=== PATIENT | female | born 1985 | race Caucasian/White ===

== ENCOUNTER 2023-03-09 09:41 | Outpatient (OUT) | payer OTHER, SELFPAY ==
[2023-03-09 11:14] LABS: Basophils Percent Auto 0.4 % (0.2-2.0); Eosinophils Absolute Auto 0.1 10^3/uL (0.0-0.7); Eosinophils Percent Auto 1.3 % (0.9-7.0); Hematocrit 36.9 % (36.0-48.0); Immature Granulocytes Abs Auto 0.01 10^3/uL (0.00-0.03); Immature Granulocytes Pct Auto 0.2 % (0.0-0.5); Lymphocytes Percent Auto 35.8 % (20.5-60.0); Mean Corpuscular HGB Conc 32.5 g/dL (29.9-35.2); Mean Corpuscular Hemoglobin 26.9 pg (26.7-34.0); Mean Corpuscular Volume 82.7 fL (81.0-99.0); Mean Platelet Volume 9.5 fL (9.5-13.5); Monocytes Absolute Auto 0.7 10^3/uL (0.3-0.8); Monocytes Percent Auto 11.8 % (1.7-12.0); Neutrophils Absolute Auto 2.8 10^3/uL (1.4-6.5); Neutrophils Percent Auto 50.5 % (43.0-75.0); Platelet Count 364 10^3/uL (150-450); Red Blood Count 4.46 10^6/uL (4.20-5.40); Red Cell Distribution Width 13.8 % (11.0-15.0); White Blood Count 5.5 10^3/uL (4.0-11.0)
[2023-03-09 11:25] LABS: INR 1.08; Partial Thromboplastin Time 28.9 sec (22.3-36.2); Prothrombin Time 11.4 sec (9.0-11.6)
[2023-03-09 11:57] LABS: Alanine Aminotransferase 39 U/L (14-59); Albumin Level 3.7 g/dL (3.4-5.0); Alkaline Phosphatase 42 U/L (46-116); Anion Gap 12.4; Aspartate Amino Transferase 22 U/L (15-37); BUN Creatinine Ratio 26.2; Bilirubin Direct 0.1 mg/dL (0.0-0.2); Bilirubin Total 0.4 mg/dL (0.2-1.0); Chloride 103 mmol/L (98-107); Estimated GFR (African America >60 (>=60); Estimated GFR (Non-African Ame >60 (>=60); Globulin 3.6 g/dL; Glucose 81 mg/dL (74-106); Potassium 3.4 mmol/L (3.5-5.1); Sodium 139 mmol/L (136-145); Total Protein 7.3 g/dL (6.4-8.2)
== END 2023-03-09 09:42 | disposition home or self-care (01) ==
PROVIDERS: PCP Family Medicine; Visit Provider Obstetrics & Gynecology
DX: Z01.812 Encounter for preprocedural laboratory examination (principal); N92.6 Irregular menstruation, unspecified; R10.2 Pelvic and perineal pain; N94.6 Dysmenorrhea, unspecified; N94.10 Unspecified dyspareunia
CPT/HCPCS: 80048; 80076; 85025; 85610; 85730; 86850; 86900; 86901

== ENCOUNTER 2023-03-18 10:57 | Day surgery (SDC) | payer OTHER, SELFPAY ==
[2023-03-09 10:26] VITALS: BP 105/70; PULSE 77; RESP 20; TEMP 36.3; O2SAT 96; BMI 42.2
[2023-03-18] VITALS (17 sets, daily range): BP systolic 99–146; BP diastolic 52–78; PULSE 68–96; RESP 15–20; TEMP 36.6–36.7; O2SAT 91–98; BMI 40.9
[2023-03-18 11:13] LABS: Basophils Percent Auto 0.4 % (0.2-2.0); Eosinophils Absolute Auto 0.1 10^3/uL (0.0-0.7); Eosinophils Percent Auto 1.2 % (0.9-7.0); Hematocrit 38.8 % (36.0-48.0); Hemoglobin 12.8 g/dL (12.0-16.0); Immature Granulocytes Abs Auto 0.01 10^3/uL (0.00-0.03); Immature Granulocytes Pct Auto 0.1 % (0.0-0.5); Lymphocytes Absolute Auto 2.1 10^3/uL (1.2-3.8); Lymphocytes Percent Auto 30.4 % (20.5-60.0); Mean Corpuscular Hemoglobin 27.1 pg (26.7-34.0); Mean Corpuscular Volume 82.2 fL (81.0-99.0); Mean Platelet Volume 9.7 fL (9.5-13.5); Monocytes Absolute Auto 0.7 10^3/uL (0.3-0.8); Neutrophils Absolute Auto 3.9 10^3/uL (1.4-6.5); Neutrophils Percent Auto 57.9 % (43.0-75.0); Platelet Count 335 10^3/uL (150-450); Red Blood Count 4.72 10^6/uL (4.20-5.40); Red Cell Distribution Width 13.6 % (11.0-15.0); White Blood Count 6.8 10^3/uL (4.0-11.0)
[2023-03-18 11:34] LABS: HCG Quantitative <1 mIU/mL
[2023-03-18] MEDS: LACTATED RINGER'S SOLUTION 1,000 ML 50 ML IV ×2 (11:45→14:34)
[2023-03-18 11:50] LABS: Glucometer 96 mg/dL (74-106)
[2023-03-18] MEDS: SCOPOLAMINE 1 EACH PATCH.TD.3 1 PATCH TD (12:38)
[2023-03-18] MEDS: CEFAZOLIN SODIUM/DEXTROSE,ISO 2 GM/50 ML PIGGYBACK IV ×2 (13:07→22:14)
--- NOTE | 2023-03-18 15:17 | P.ON_ITS ---
Brief Operative Note Date of procedure: 03/18/23 Pre-op diagnosis: MENORRHAGIA, PELVIC PAIN, DYSMENORRHEA, DYSPAREUNIA Post-op diagnosis: same as pre-op Procedure: NAME OF PROCEDURE: ? Robotic assisted laparoscopic hysterectomy with cystoscopy, bilateral salpingectomy PROCEDURE:? The patient was taken back to the operating room, where she was prepped and draped in the normal sterile fashion after being placed in the dorsal lithotomy position.? Patient?s anesthesia was found to be adequate.? Surgical timeout was performed using two patient identifiers.? SCDs were on and in place.? Two grams of Ancef were given prior to the surgery.? Sterile Escamilla catheter was inserted.? Standard size VCare was secured to the uterine cervix and the surgeon changed gloves.? Attention then was turned to the patient's abdomen, where a supraumbilical incision was then made.? Two S retractors were used to identify the patient?s fascia.? The fascia was then tented up using Bozena clamps and the patient?s fascia was incised sharply.? Patient?s abdomen was identified and entered bluntly.? The patient had the trocar placed and a pneumoperitoneum was obtained.? Approximately 4 liters of CO2 gas was used.? The camera was then placed through the trocar.? At this time, two robot trocars were placed in the patient?s left and right side, two hand widths from the midline, and this was placed under direct visualization.? the vessel sealer was then carried down to the uterine ovarian ligament.? The vessel sealer was carried down serially to the broad ligament, to the area of the bladder flap, which was then created anteriorly, and the uterine arteries were skeletonized and sealed using the vessel sealer.? The colpotomy was made using the monopolar cautery on cut, and this was carried circumferentially, posteriorly to anteriorly, until the uterus was amputated.? The specimen was then removed intact through the vagina, without difficulty.? The vagina was then closed using two running V-Loc in a non-lock fashion.? The robot was undocked.? The abdomen was desufflated.? The skin defects were closed using 4-0 Vicryl.? Please note, the fascia was closed using 0 Vicryl.? Sponge, lap and needle counts were correct x2.? Patient was taken to recovery room in stable condition.? The patient was awakened by Anesthesia first.? Patient tolerated procedure well.?? Anesthesia: JOVAN Surgeon: [employer] Assistant: Lexus Dorado Estimated blood loss (mL): 200 Pathology: other (UTERUS) Condition: stable Disposition: PACU
[2023-03-18] MEDS: HYDROMORPHONE HCL 0.5 MG/0.5 ML SYRINGE IV ×2 (15:40→15:55)
[2023-03-18] MEDS: LACTATED RINGER'S SOLUTION 1,000 ML 125 ML IV (18:08)
--- NOTE | 2023-03-18 20:55 | PC.NURSE ---
RN performs physical assessment which is WNL. Small gauze with occlusive dressing sites x4 noted on abdomen. Small amount of serosanguinous drainage noted on one gauze; other sites on abdomen remain clean, dry, and intact. Pt denies pain or any needs at this time.
[2023-03-18] MEDS: DOCUSATE SODIUM 100 MG CAPSULE PO (22:12)
[2023-03-19] MEDS: CEFAZOLIN SODIUM/DEXTROSE,ISO 2 GM/50 ML PIGGYBACK IV (02:30)
[2023-03-19 05:57] LABS: Basophils Percent Auto 0.2 % (0.2-2.0); Eosinophils Percent Auto 0.1 % (0.9-7.0); Hematocrit 33.8 % (36.0-48.0); Immature Granulocytes Abs Auto 0.03 10^3/uL (0.00-0.03); Immature Granulocytes Pct Auto 0.3 % (0.0-0.5); Lymphocytes Absolute Auto 2.5 10^3/uL (1.2-3.8); Lymphocytes Percent Auto 23.5 % (20.5-60.0); Mean Corpuscular HGB Conc 32.5 g/dL (29.9-35.2); Mean Corpuscular Hemoglobin 26.9 pg (26.7-34.0); Mean Corpuscular Volume 82.6 fL (81.0-99.0); Mean Platelet Volume 9.9 fL (9.5-13.5); Monocytes Absolute Auto 1.1 10^3/uL (0.3-0.8); Monocytes Percent Auto 10.2 % (1.7-12.0); Neutrophils Absolute Auto 6.9 10^3/uL (1.4-6.5); Neutrophils Percent Auto 65.7 % (43.0-75.0); Platelet Count 292 10^3/uL (150-450); Red Blood Count 4.09 10^6/uL (4.20-5.40); Red Cell Distribution Width 13.6 % (11.0-15.0); White Blood Count 10.6 10^3/uL (4.0-11.0)
[2023-03-19] MEDS: IBUPROFEN 600 MG TABLET 800 MG PO (06:39)
--- NOTE | 2023-03-19 07:13 | W.PC.ACHO ---
Registration Status: REG SDC Primary Language: Turkmen Preferred Language: Active Medications Generic Name Dose Route Start Last Admin Trade Name Freq PRN Reason Stop Dose Admin Al Hydroxide/Mg Hydroxide 2,400 mg 03/19/23 09:00 Magnesium Hydroxide 2,400 Mg/10 Ml Oral.Susp PO ONCE DALI Bisacodyl 10 mg 03/18/23 15:12 Bisacodyl 10 Mg Rectal Suppository VA QHS PRN Constipation Docusate Sodium 100 mg 03/18/23 21:00 03/18/23 22:12 Docusate Sodium 100 Mg Capsule PO 100 mg BID PRN Administration Constipation Hydromorphone HCl 0.5 mg 03/18/23 09:06 03/18/23 15:55 Hydromorphone Hcl 0.5 Mg/0.5 Ml Syringe IV 0.5 mg Q5M PRN Administration Pain Hydromorphone HCl 1 mg 03/18/23 09:06 Hydromorphone Hcl 1 Mg/Ml Cartridge INJ ONCE PRN Pain Scale 7-10 Lactated Ringer's 1,000 mls @ 50 mls/hr 03/18/23 07:01 03/18/23 14:34 Lactated Ringers IV 50 mls/hr .Q20H DALI Administration Lactated Ringer's 1,000 mls @ 125 mls/hr 03/18/23 15:15 03/18/23 18:08 Lactated Ringers IV 125 mls/hr .Q8H DALI Administration Ibuprofen 800 mg 03/18/23 15:12 03/19/23 06:39 Ibuprofen 600 Mg Tablet PO 800 mg Q6H PRN Administration Pain Scale 4-6 Ketorolac Tromethamine 30 mg 03/18/23 15:12 Ketorolac Tromethamine 30 Mg/Ml Vial IVP Q6H PRN Pain Morphine Sulfate 2 mg 03/18/23 09:06 Morphine Sulfate 4 Mg/Ml Vial IV ONCE PRN Pain Ondansetron HCl 4 mg 03/18/23 15:12 Ondansetron Pf 4 Mg/2 Ml Vial IV Q6H PRN Nausea Oxycodone/Acetaminophen 1 each 03/18/23 15:12 03/18/23 22:11 Oxycodone Hcl/Acetaminophen 5-325 Mg Tablet PO 1 each Q4H PRN Administration Pain Oxycodone/Acetaminophen 2 each 03/18/23 15:12 03/18/23 16:07 Oxycodone Hcl/Acetaminophen 5-325 Mg Tablet PO 2 each Q4H PRN Administration Pain Scale 7-10 Promethazine HCl 12.5 mg 03/18/23 15:12 Promethazine Hcl 25 Mg/Ml Vial IV Q6H PRN Nausea And Vomiting Simethicone 80 mg 03/18/23 15:12 Simethicone 80 Mg Tab.Chew PO PCHS PRN Abdominal Distention Temazepam 30 mg 03/18/23 15:12 Temazepam 15 Mg Capsule PO BEDTIME PRN Sleep IV Insertion/Site Date of IV Line Insertion [ 03/18/23 Short PIV (<1.75 in) 20g right Hand] Date of IV Line Insertion [ 03/18/23 Short PIV (<1.75 in) 20g right Hand] IV Insertion Time [Short PIV ( 11:36 <1.75 in) 20g right Hand] IV Insertion Time [Short PIV ( 11:36 <1.75 in) 20g right Hand] Neurology Scarlet coma scale total score 15 Respiratory Lung sounds [Bilateral clear Throughout] Lung sounds [Bilateral clear Throughout] Lung sounds [Bilateral clear Throughout] Lung sounds [Bilateral clear Throughout] Lung sounds [Bilateral clear Throughout] Lung sounds [Bilateral clear Throughout] Lung sounds [Bilateral clear Throughout] Lung sounds [Bilateral clear Throughout] Pulse Oximetry 97 Pulse Oximetry 98 Pulse Oximetry 93 Pulse Oximetry 93 Pulse Oximetry 93 Pulse Oximetry 93 Pulse Oximetry 94 Pulse Oximetry 93 Pulse Oximetry 96 Pulse Oximetry 91 Pulse Oximetry 92 Pulse Oximetry 92 Pulse Oximetry 91 Pulse Oximetry 93 Pulse Oximetry 92 Pulse Oximetry 94 Pulse Oximetry 94 Pulse Oximetry 94 Pulse Oximetry 96 Oxygen Delivery Method Room Air Oxygen Delivery Method Room Air Oxygen Delivery Method Room Air Oxygen Delivery Method Room Air Oxygen Delivery Method Room Air Oxygen Delivery Method Room Air Oxygen Delivery Method Room Air Oxygen Delivery Method Room Air Cardiology Heart Sounds Regular Heart Sounds Regular Bowels Date of Last Bowel Movement 03/17/23
[2023-03-19 07:34] VITALS: BP 111/64; PULSE 63; RESP 16; TEMP 37.1
== END 2023-03-19 07:45 | disposition home or self-care (01) ==
LOC: SURGOUT 10:58 → FBC 17:22
PROVIDERS: PCP Family Medicine; Visit Provider Obstetrics & Gynecology
PROC: (CPT 58570; principal; 2023-03-18 12:30)
DX: N92.6 Irregular menstruation, unspecified (principal); N88.8 Other specified noninflammatory disorders of cervix uteri; N80.03 Adenomyosis of the uterus; R10.2 Pelvic and perineal pain; N94.6 Dysmenorrhea, unspecified; N94.10 Unspecified dyspareunia; J45.909 Unspecified asthma, uncomplicated; E28.2 Polycystic ovarian syndrome; M79.7 Fibromyalgia; D89.89 Other specified disorders involving the immune mechanism, not elsewhere classified
CPT/HCPCS: 58570; 36415; 82948; 84702; 85025; 88307; 94667; 94668; 96374; J1170; J2704

== ENCOUNTER 2024-05-29 19:55 | Outpatient (REF) | payer OTHER, SELFPAY | END 2024-05-29 19:56 | disposition home or self-care (01) | LOC: LAB 19:55 | PROVIDERS: PCP Family Medicine; Visit Provider Obstetrics & Gynecology | DX: Z01.419 Encounter for gynecological examination (general) (routine) without abnormal findings (principal) | CPT/HCPCS: 87624; 88175 ==

== ENCOUNTER 2024-12-07 15:07 | Outpatient (REF) | payer OTHER, SELFPAY ==
[2024-12-12 14:09] LABS: HPV Aptima Negative (Negative); Pap IG (Image Guided) Note (.)
== END 2024-12-07 15:08 | disposition home or self-care (01) ==
LOC: LAB 15:07
PROVIDERS: PCP Family Medicine; Visit Provider Obstetrics & Gynecology
DX: Z01.42 Encounter for cervical smear to confirm findings of recent normal smear following initial abnormal smear (principal)
CPT/HCPCS: 87624; 88175

== ENCOUNTER 2025-06-04 19:47 | Outpatient (REF) | payer OTHER, SELFPAY ==
--- OUTSIDE RECORDS SUMMARY | 2021-07-21 12:15 | XMS_ITS | Continuity of Care Document ---
Author Organization [facility] Address [address] [place] [address] Phone Care Team Providers Care Flight Engineer Instructor Name Role Phone Alfred Salas Unavailable Unavailable Procedures Procedure Date CHIROPRACTIC MANIPULATION CHIROPRACTIC MANIPULATION CHIROPRACTIC MANIPULATION CHIROPRACTIC MANIPULATION CHIROPRACTIC MANIPULATION CHIROPRACTIC MANIPULATION CHIROPRACTIC MANIPULATION CHIROPRACTIC MANIPULATION CHIROPRACTIC MANIPULATION CHIROPRACTIC MANIPULATION CHIROPRACTIC MANIPULATION CHIROPRACTIC MANIPULATION CHIROPRACTIC MANIPULATION CHIROPRACTIC MANIPULATION CHIROPRACTIC MANIPULATION CHIROPRACTIC MANIPULATION CHIROPRACTIC MANIPULATION CHIROPRACTIC MANIPULATION CHIROPRACTIC MANIPULATION CHIROPRACTIC MANIPULATION CHIROPRACTIC MANIPULATION CHIROPRACTIC MANIPULATION CHIROPRACTIC MANIPULATION Advance Directives Directive Yes / No Effective Date File Name No Information Encounters Encounter Description Practice Location Reason(s) For Visit Diagnoses Date Provider Providers Copied on Encounter [facility], [address] [place] [address], [place], [place], [id number] , [place] tel:[phone] [facility] cervical spine (chief complaint) cervical spine (chief complaint) Segmental and somatic dysfunction of cervical regionCervicalgiaSegm ental and somatic dysfunction of thoracic regionPain in thoracic spine 1 Josue Simon. [address], [place], [id number] , . tel: [phone] [facility], [address] [place] [address], [id number] , [place] tel: [phone] [facility] thoracic spine (chief complaint) thoracic spine (chief complaint) Segmental and somatic dysfunction of thoracic regionPain in thoracic spineSegmental and somatic dysfunction of cervical regionCervicalgia 1 Josue Simon. [address], [place], [id number] , [place]. tel: [phone] [facility], [address] [place] [address], [id number] , tel: [phone] [facility] thoracic spine (chief complaint) thoracic spine (chief complaint) Segmental and somatic dysfunction of thoracic regionPain in thoracic spineSegmental and somatic dysfunction of cervical regionCervicalgia 1 Josue Simon. [address] [place] [address], [id number] , [place]. tel: [phone] [facility], [address] [place] [address], [id number] , tel: [phone] [facility] thoracic spine (chief complaint) thoracic spine (chief complaint) Segmental and somatic dysfunction of thoracic regionPain in thoracic spineSegmental and somatic dysfunction of cervical region 1 Josue Simon. [address] [place] [address], [id number] , [place]. tel: [phone] [facility], [address] [place] [address], [id number] , [place] tel: [phone] [facility] lumbar spine (chief complaint) lumbar spine (chief complaint) Segmental and somatic dysfunction of lumbar regionLow back painSegmental and somatic dysfunction of thoracic regionPain in thoracic spine 1 Josue Simon. [address], [place], [id number] , [place]. tel: [phone] [facility], [address], [place], [id number] , [place] tel: [phone] [facility] cervical spine (chief complaint) cervical spine (chief complaint) Segmental and somatic dysfunction of cervical regionCervicalgiaSegm ental and somatic dysfunction of lumbar regionLow back pain 1 Josue Simon. [address], [place], [id number] , [place]. tel: [phone] [facility], [address] [place] [address], [id number] , [place] tel: [phone] [facility] lumbar spine (chief complaint) lumbar spine (chief complaint) Segmental and somatic dysfunction of lumbar regionLow back painSegmental and somatic dysfunction of thoracic regionPain in thoracic spine 1 Josue Simon. [address] [place] [address], [id number] , [place]. tel: [phone] [facility], [address] [place] [address], [id number] , [place] tel: [phone] [facility] lumbar spine (chief complaint) lumbar spine (chief complaint) Segmental and somatic dysfunction of lumbar regionLow back painSegmental and somatic dysfunction of thoracic regionPain in thoracic spine 1 Josue Simon. [address] [place] [address], [id number] , [place]. tel: [phone] [facility], [address] [place] [address], [id number] , [place] tel: [phone] [facility] thoracic spine (chief complaint) thoracic spine (chief complaint) Segmental and somatic dysfunction of lumbar regionSegmental and somatic dysfunction of thoracic regionPain in thoracic spineLow back pain 1 Josue Simon. [address] [place] [address], [id number] , [place]. tel: [phone] [facility], [address] [place] [address], [id number] , [place] tel: [phone] [facility] thoracic spine (chief complaint) thoracic spine (chief complaint) Segmental and somatic dysfunction of thoracic regionPain in thoracic spineSegmental and somatic dysfunction of lumbar regionLow back pain 0 Josue Simon. [address], [place], [id number] , [place]. tel: [phone] [facility], [address] [place] [address], [id number] , [place] tel: [phone] [facility] lumbar spine (chief complaint) lumbar spine (chief complaint) Segmental and somatic dysfunction of thoracic regionPain in thoracic spineSegmental and somatic dysfunction of lumbar regionLow back pain 0 Josue Simon. [address] [place] [address], [id number] , [place]. tel: [phone] [facility], [address] [place] [address], [id number] , tel: [phone] [facility] lumbar spine (chief complaint) lumbar spine (chief complaint) Segmental and somatic dysfunction of lumbar regionLow back painSegmental and somatic dysfunction of thoracic regionPain in thoracic spine 0 Josue Simon. [address] [place] [address], [id number] , [place]. tel: [phone] [facility], [address] [place] [address], [id number] , [place] tel: [phone] [facility] cervical spine (chief complaint) cervical spine (chief complaint) Segmental and somatic dysfunction of cervical regionCervicalgiaSegm ental and somatic dysfunction of thoracic regionPain in thoracic spine 0 Josue Simon. [address] [place] [address], [id number] , [place]. tel: [phone] [facility], [address] [place] [address], [id number] , [place] tel: [phone] [facility] lumbar spine (chief complaint) lumbar spine (chief complaint) Segmental and somatic dysfunction of lumbar regionLow back painSegmental and somatic dysfunction of thoracic regionPain in thoracic spine 0 Josue Simon. [address], [place], [id number] , [place]. tel: [phone] [facility], [address], [place], [id number] , [place] tel: [phone] [facility] lumbar spine (chief complaint) lumbar spine (chief complaint) Segmental and somatic dysfunction of lumbar regionLow back painSegmental and somatic dysfunction of thoracic region 0 Josue Simon. [address] [place] [address], [id number] , [place]. tel: [phone] [facility], [address] [place] [address], [id number] , [place] tel: [phone] [facility] lumbar spine (chief complaint) lumbar spine (chief complaint) Segmental and somatic dysfunction of lumbar regionLow back painSegmental and somatic dysfunction of thoracic region 9 Josue Simon. [address] [place] [address], [id number] , [place]. tel: [phone] [facility], [address] [place] [address], [id number] , [place] tel: [phone] [facility] lumbar spine (chief complaint) lumbar spine (chief complaint) Segmental and somatic dysfunction of lumbar regionLow back painSegmental and somatic dysfunction of thoracic region 9 Josue Simon. [address] [place] [address], [id number] , [place]. tel: [phone] [facility], [address] [place] [address], [id number] , [place] tel: [phone] [facility] lumbar spine (chief complaint) lumbar spine (chief complaint) Segmental and somatic dysfunction of lumbar regionLow back painSegmental and somatic dysfunction of thoracic regionPain in thoracic spine Sep 3-201 9 Josue Simon. [address] [place] [address], [id number] , [place]. tel: [phone] [facility], [address], [place], [id number] , [place] tel: [phone] [facility] cervical spine (chief complaint) cervical spine (chief complaint) Segmental and somatic dysfunction of cervical regionCervicalgiaSegm ental and somatic dysfunction of lumbar region 9 Josue Simon. [address], [place], [id number] , [place]. tel: [phone] [facility], [address] [place] [address], [id number] , [place] tel: [phone] [facility] lumbar spine (chief complaint) lumbar spine (chief complaint) Segmental and somatic dysfunction of lumbar regionLow back painSegmental and somatic dysfunction of thoracic region 6- 9 Josue Simon. [address] [place] [address], [id number] , [place]. tel: [phone] [facility], [address] [place] [address], [id number] , [place] tel: [phone] [facility] lumbar spine (chief complaint) lumbar spine (chief complaint) Segmental and somatic dysfunction of lumbar regionLow back painSegmental and somatic dysfunction of thoracic region 9- 9 Josue Simon. [address] [place] [address], [id number] , [place]. tel: [phone] [facility], [address] [place] [address], [id number] , [place] tel: [phone] [facility] lumbar spine (chief complaint) lumbar spine (chief complaint) Segmental and somatic dysfunction of lumbar regionLow back painSegmental and somatic dysfunction of thoracic region - 9 Josue Simon. [address] [place] [address], [id number] , [place]. tel: [phone] [facility], [address] [place] [address], [id number] , [place] tel: [phone] [facility] lumbar spine (chief complaint) lumbar spine (chief complaint) Segmental and somatic dysfunction of lumbar regionLow back painSegmental and somatic dysfunction of thoracic region 9 Josue Simon. [address] [place] [address], [place], [place], [id number] , [place]. tel:[phone] Family History Family Member Type Diagnosis Age At Onset No Information Payers Payer name Insurance type Covered republican ID Phoebe causey(s) [employer] [id number] Medicaid Wrap - [employer] [id number] Social History Type Description Quantity Date Captured Comments Alcohol Use Details Unknown Caffeine Use Details Unknown Tobacco Use Status No Information Smoking Status No Information Sex Female Sexual Orientation Straight or heterosexual Sep Gender Identity Female Chief Complaint And Reason For Visit From encounter dated '07/21/2021 16:15'. cervical spine (chief complaint) cervical spine (chief complaint). Description: Pt reports soreness in neck and mid back this week Reason For Referral Reason For Referral No Information History Of Present Illness Encounter Date Complaint History Of Prese nt Illness cervical spine cervical spine Pt reports polly ess in neck and mid back this week thoracic spine thoracic spine Pt reports flare up of fibromyalgia this week thoracic spine thoracic spine Pt reports polly ess in neck and mid back this week. thoracic spine thoracic spine Pt reports polly ess in neck and between shoulder blades this week. lumbar spine lumbar spine Pt reports polly ess in mid and low back this week. cervical spine cervical spine Pt reports polly ess in neck and low back as well as a fibro flare up lumbar spine lumbar spine Pt reports polly ess in mid and low back this week. lumbar spine lumbar spine Pt reports polly ess in mid and low back this week. thoracic spine thoracic spine Pt reports polly ess in between shoulder blades this week. thoracic spine thoracic spine Pt presents with tightness in mid and low back this week. lumbar spine lumbar spine Pt reports polly ess in mid and low back this week. lumbar spine lumbar spine Pt reports polly ess in low back this week. cervical spine cervical spine Pt reports pain in neck and mid back with multiple sore knots. Feels like fibromyalgia is flared up lumbar spine lumbar spine Pt reports polly ess in low and mid back for past few weeks. lumbar spine lumbar spine Pt reports polly ess in mid and low back, worse on right. lumbar spine lumbar spine Pt reports polly ess in mid and low back. lumbar spine lumbar spine Pt presents with soreness in mid and low back. lumbar spine lumbar spine Pt reports polly ess in mid and low back from breaking apart her fireplace with a hammer for the last week. cervical spine cervical spine Pt reports tende rness on right side of upper neck. lumbar spine lumbar spine Pt reports right hip felt pretty good last week. Re-check in 1 month. lumbar spine lumbar spine Pt reports feeli ng better over weekend. Having days with less pain in right hip. lumbar spine lumbar spine Pt reports feeli ng slight improvement after last visit. lumbar spine lumbar spine C/O low back ruy n into right hip with onset 1 year ago after delivery child. Pt also reports hx of fibromyalgia.Sx are the result of regular ADL'S. No specific injury or trauma is noted. Pain is primarily at L3-L5 PVM on the Rt. and extends to the SI joint, Rt. Pain is local, dull, and without radiation to the lower extremities. No sensory or motor changes noted. No loss of bowel or bladder function or retention. Pain interferes with regular ADL's. Increase in pain with movement/ROM and ADL'S. Some decrease in symptoms with rest. No change in the pain pattern from the onset of symptoms. Pain pattern is as prior times. Functional Status Date Functional Assessmen t No Information Instructions Date Instruction Additional Infor mation No Information Assessments Type Assessment Date assessment Segmental and somatic dysfunctio n of cervical region assessment Cervicalgia assessment Segmental and somatic dysfunctio n of thoracic region assessment Pain in thoracic spine 21 impression Patient Care Teams Name Effective Dates (start - stop) Status Members No Information
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
--- OUTSIDE RECORDS SUMMARY | 2025-06-04 14:00 | XMS_ITS | Encounter Summary ---
Author Organization [facility] Address [address] [place] [address] Care Team Providers Care Flame Degreaser Name Role Phone Fabby James MD Primary Care Provider [phone] Reason for Visit * ReasonCommentsWell Women Visit Encounter Details DateTypeDepartmentCare Team (Latest Contact Info)Ahpbxoprctk98/27/2025 2:00 PM EDTOffice Visit [facility] [address] [place] [address] Vel Grove DO [address] [place] [address] Hormone disorder (Primary Dx); Well woman exam with routine gynecological exam; Encounter for screening mammogram for malignant neoplasm of breast Social History Tobacco UseTypesPacks/DayYears UsedDateSmoking Tobacco: NeverSmokeless Tobacco: NeverAlcohol UseStandard Drinks/WeekCommentsYes2 (1 standard drink = 0.6 oz pure alcohol)caffeine: 1-2 cups/[id number] Health LiteracyAnswerDate RecordedHow often do you need [...] a week 07/03/2024How often do you attend anglican or jainism services?1 to 4 times per year07/03/2024o you belong to any clubs or organizations such as anglican groups, unions, fraternal or athletic groups, or school groups?No07/03/2024How often do you attend meetings of the clubs or organizations you belong to?Never07/03/2024 Are you , , , , never , or living with a partner?Tndrlgqat91/25/2024UDIT-CAnswerDate RecordedQ1: How often do you have a [...] and heating?Hard 07/03/2024HQ-2AnswerDate RecordedPatient Health Questionnaire-2 Score3 11/03/2024[facility] [place] of [facility] Health - Occupational Stress QuestionnaireAnswerDate [...] steady place to sleep or slept in [facility] (including now)?No02/24/2023Housing Stability Vital SignAnswerDate RecordedIn the [...] InformationValueDate RecordedSex Assigned at BirthNot on fileLegal GauRpkxtx74/15/2023 6:44 PM EDTGender Identity Not on fileSexual OrientationNot on filedocumented as of this encounter Last Filed Vital Signs Vital SignReadingTime TakenCommentsBlood Vbkqkjha479/6010/ 1:35 PM EDT Pulse--Temperature--Respiratory Rate--Oxygen Saturation--Inhaled Oxygen Concentration--Szhqug548 kg (230 lb 12 oz)06/04/2025 1:35 PM EDTHeight--Body Mass Index39.6105/22/2025 1:04 PM EDTdocumented in this encounter Progress Notes * MARIBEL Sevilla - 06/04/2025 2:00 PM EDT Reason for Appointment: Patient ID: Stefanie Bean is a 39 y.o. female who presents for Well Women Visit Patient presents today for Annual Exam. MEDICATIONS Current Outpatient Medications Medication Instructions albuterol HFA 90 mcg/act inhaler INHALE 2 PUFFS EVERY 6 HOURS IF NEEDED FOR SHORTNESS OF BREATH OR WHEEZING budesonide (EQ Budesonide Nasal) 32 MCG/ACT nasal spray as directed Nasally buPROPion XL (WELLBUTRIN XL) 150 mg, Oral, Every morning, Do not crush, chew, or split. cetirizine (ZYRTEC) 10 mg, Daily RT Cholecalciferol (Vitamin D-3) 5000 UNIT/ML liquid Orally escitalopram (LEXAPRO) 20 mg, Oral, Daily Fluticasone-Salmeterol (Advair Diskus) 250-50 MCG/ACT aerosol powder 2 puffs, Inhalation, 2 times daily Iron, Ferrous Sulfate, 325 (65 Fe) MG tablet metFORMIN (GLUCOPHAGE) 500 mg, Oral, Take with food. montelukast (SINGULAIR) 10 mg, Oral, Nightly Multiple Vitamins-Minerals (MULTIVIT/MULTIMINERAL ADULT PO) ALLERGIES Allergies Allergen Reactions Latex Cat Dander Unknown Dog Epithelium (Canis Lupus Familiaris) Unknown Other Reaction(s): Other (See Comments) Dust Mite Extract Unknown Molds & Smuts Unknown Fluticasone Palpitations PROBLEMS Active Ambulatory Problems Diagnosis Date Noted Chronic rhinitis 02/25/2023 Seasonal allergic rhinitis 04/09/2021 Anxiety 06/12/2016 Cervical spondylosis without myelopathy 07/23/2022 Fibromyalgia 02/02/2017 Moderate persistent asthma without complication (HCC) 11/28/2019 Morbid (severe) obesity due to excess calories ([facility]-H[facility]) 02/25/2023 PCOS (polycystic ovarian syndrome) 02/25/2023 Recurrent major depressive disorder, in partial remission 02/02/2017 Resolved Ambulatory Problems Diagnosis Date Noted Allergic rhinitis due to pollen 02/25/2023 Cervical spinal stenosis 02/25/2023 Neck pain 02/25/2023 Hemorrhage 01/21/2016 Hoarseness 02/25/2023 Palpitations 02/13/2019 Yeast infection 02/25/2023 Past Medical History: Diagnosis Date Allergic Allergic rhinitis Arthritis Asthma (HCC) Autoimmune disease (HCC) Carpal tunnel syndrome Colitis Depression Endometriosis GERD (gastroesophageal reflux disease) Headache History of medical problems Neuromuscular disorder (HCC) Obesity Polycystic ovarian syndrome Urinary tract infection Visual impairment HISTORY PAST MEDICAL HISTORY SOCIAL HISTORY Past Medical History: Diagnosis Date Allergic Allergic rhinitis Anxiety Arthritis Asthma (HCC) Autoimmune disease (HCC) Carpal tunnel syndrome Colitis Depression Endometriosis Fibromyalgia GERD (gastroesophageal reflux disease) Headache History of medical problems subchronic hemmorhage, lost at 5 months Hoarseness Neuromuscular disorder (HCC) Obesity Palpitations 02/13/2019 Polycystic ovarian syndrome Urinary tract infection Visual impairment Social History Tobacco Use Smoking status: Never Smokeless tobacco: Never Vaping Use Vaping status: Never Used Substance Use Topics Alcohol use: Yes Alcohol/week: 2.0 standard drinks of alcohol Types: 2 Glasses of wine per week Comment: caffeine: 1-2 cups/day Drug use: Never FAMILY HISTORY Family History Problem Relation Name Age of Onset Osteoarthritis Mother Felecia Sloan Mental illness Mother Felecia Sloan Arthritis Mother Felecia Sloan Asthma Mother Felecia Sloan Depression Mother Felecia Sloan Miscarriages / Stillbirths Mother Felecia Sloan Arthritis Father Jace Cheek Depression Father Jace Cheek Other (thyroid issues) Other both sides of family Diabetes Other both sides of family Polycystic kidney disease Other aunt Cancer Other uterine and ovarian: great aunts Arthritis Sister Katherin Fox Asthma Sister Katherin Fox Depression Sister Katherin Nolauryn Asthma Brother Benito Adams Miscarriages / Stillbirths Mother's Sister Farhan Sandoval SURGICAL HISTORY Past Surgical History: Procedure Laterality Date COLONOSCOPY 2000 DILATION AND CURETTAGE 2004 DILATION AND CURETTAGE 12/23/2015 HYSTERECTOMY 03/18/2023 LAPAROSCOPY DIAGNOSTIC / BIOPSY / ASPIRATION / LYSIS 2000 Diagnostic laparoscopy; chocolate cyst ovary PAP SMEAR 12/12/2019 normal [place] REMOVAL OF FALLOPIAN TUBE 03/13/2022 abltation and tubal removal TUBAL LIGATION Removed 03/13/2023 VAGINAL DELIVERY 03/03/2018 , 05/22/2013 WISDOM TOOTH EXTRACTION 2002 teeth REVIEW OF SYSTEMS Review of Systems: Review of Systems Constitutional: Negative. HENT: Negative. Eyes: Negative. Respiratory: Negative. Cardiovascular: Negative. Gastrointestinal: Negative. Genitourinary: Negative. Musculoskeletal: Negative. Skin: Negative. Neurological: Negative. All other systems reviewed and are negative. Hematological: Negative. Endocrine: Negative. Allergic/Immunologic: Negative. OBJECTIVE Objective: Physical Exam Constitutional: Appearance: Normal appearance. She is well-developed. Genitourinary: Vulva normal. Cardiovascular: Rate and Rhythm: Normal rate and regular rhythm. Pulmonary: Effort: Pulmonary effort is normal. Breath sounds: Normal breath sounds. Abdominal: General: Bowel sounds are normal. There is no distension. Palpations: Abdomen is soft. Tenderness: There is no abdominal tenderness. There is no guarding or rebound. Musculoskeletal: General: No swelling. Normal range of motion. Right lower leg: No edema. Left lower leg: No edema. Neurological: Mental Status: She is alert and oriented to person, place, and time. Skin: General: Skin is warm and dry. Psychiatric: Mood and Affect: Mood normal. Behavior: Behavior normal. Vitals and nursing note reviewed. Exam conducted with a postie present. Vitals: Estimated body mass index is 39.61 kg/m?? as calculated from the following: Height as of 05/22/25: 5' 4 . Weight as of this encounter: 230 lb 12 oz. BP: 118/60 No LMP recorded (lmp unknown). Patient has had a hysterectomy. ASSESSMENT & PLAN ICD-10-CM 1. Well woman exam with routine gynecological exam Z01.419 THIN PREP TIS PAP AND HR HPV DNA 2. Encounter for screening mammogram for malignant neoplasm of breast Z12.31 Bilateral screening mammogram Bilateral screening mammogram Orders Placed This Encounter Procedures Bilateral screening mammogram Annual Wellness Exam: Patient presents today for routine annual exam. Patient states she has no current complaints. Patients vitals were reviewed and within normal limits. Growth and development is noted to be appropriate for age. Menstrual history is noted to be regular with no concerns reported. No mental health concerns was expressed. Pap Smear: Speculum was inserted into the vagina and pap was obtained without difficulty. HPV testing was performed per age guideline. Patient was advised that pap results could take anywhere from 7 to 10 days to receive and our office will reach out to the patient with those once we have them. Patient can also view results via [employer]. I reinforced importance of condom use for STI prevention. Patient declined cultures to be performed with today's visit. Breast Exam: Upon examination, clinical breast exam was noted to be normal and screening mammogram was ordered and given to patient to have obtained. Patient was counseled on breast self-awareness, including the importance of knowing what is normal for her own breasts and promptly reporting any changes such as new lumps, skin dimpling, nipple discharge, or pain. Screening mammogram was recommended annually. Discussed signs and symptoms of breast cancer and when to seek medical attention. Answered all patient questions. Follow Up: Patient is to return to our office in one year for annual exam unless needed otherwise. Documented by MARIBEL Sevilla on behalf of: Vel Grove DO documented in this encounter Plan of Treatment DateTypeDepartmentCare Team (Latest Contact Info)Gkgrpgqxcif23/03/2026 8:30 AM ESTProcedure Visit [facility] [address] [place] [address] Vel Grove DO [address] [place] [address] NameTypePriorityAssociated DiagnosesOrder ScheduleBilateral screening mammogram ImagingRoutine Encounter for screening mammogram for malignant neoplasm of breast Expected: 06/04/2025 (Approximate), Expires: 08/04/2026THIN PREP TIS PAP AND HR HPV DNAPathology and CytologyRoutine Well woman exam with routine gynecological exam Ordered: 06/04/2025EstradiolLabRoutine Hormone disorder Ordered: 06/04/2025EstroneLabRoutine Hormone disorder Ordered: 06/04/2025ortisol, freeLabRoutine Hormone disorder Expected: 06/04/2025 (Approximate), Expires: 06/04/2026DHEA-sulfateLabRoutine Hormone disorder Ordered: 06/04/2025Sex hormone binding globulinLabRoutine Hormone disorder Ordered: 06/04/2025Insulin, totalLabRoutine Hormone disorder Expected: 06/04/2025 (Approximate), Expires: 06/04/2026Serotonin serumLabRoutine Hormone disorder Expected: 06/04/2025 (Approximate), Expires: 06/04/2026TSHLabRoutine Hormone disorder Ordered: 06/04/2025T4, freeLabRoutine Hormone disorder Ordered: 06/04/2025T3, reverseLabRoutine Hormone disorder Ordered: 06/04/2025ProgesteroneLabRoutine Hormone disorder Ordered: 06/04/2025Vitamin D 1,25 dihydroxyLabRoutine Hormone disorder Ordered: 06/04/2025FerritinLabRoutine Hormone disorder Ordered: 06/04/2025T3, freeLabRoutine Hormone disorder Ordered: 06/04/2025ThyroglobulinLabRoutine Hormone disorder Expected: 06/04/2025 (Approximate), Expires: 06/04/2026Thyroglobulin AntibodyLab Routine Hormone disorder Expected: 06/04/2025 (Approximate), Expires: 06/04/2026Thyroid peroxidase antibodyLabRoutine Hormone disorder Ordered: 06/04/20253541O0YzlCgigwie Hormone disorder Expected: 06/04/2025 (Approximate), Expires: 06/04/2026TESTOSTERONE, FREELab Routine Hormone disorder Ordered: 06/04/2025Testosterone, free, totalLabRoutine Hormone disorder Ordered: 06/04/2025Hemoglobin X8yYbmXfkliwu Hormone disorder Ordered: 06/04/2025Glucose, randomLabRoutine Hormone disorder Expected: 06/04/2025 (Approximate), Expires: 06/04/2026-peptideLabRoutine Hormone disorder Expected: 06/04/2025 (Approximate), Expires: 06/04/2026documented as of this encounter Visit Diagnoses Diagnosis Hormone disorder- Primary Unspecified endocrine disorder Well woman exam with routine gynecological exam Routine gynecological examination Encounter for screening mammogram for malignant neoplasm of breast documented in this encounter Additional Health Concerns AssessmentNoted TimePHQ-9 Depression Total Score: 16011/03/2024 3:00 PM EDT documented as of this encounter Care Teams Team MemberRelationshipSpecialtyStart DateEnd Date Fabby James MD [address] [place] [address] PCP - GeneralFamily Medicine02/11/23documented as of this encounter
--- OUTSIDE RECORDS SUMMARY | 2025-06-04 19:50 | XMS_ITS | Clinical Summary ---
Author Organization [facility] Address [address] [place] [address] Care Team Providers Care Double Ending Machine Operator Name Role Phone Fabby Maynard RT(R) Primary Care Provider Un available Allergies No known active allergies Medications MedicationSigDispense QuantityRefillsLast FilledStart DateEnd DateStatus PROAIR HFA 90 mcg/actuation inhaler 10/02/2015Active metFORMIN (GLUCOPHAGE) 500 mg tablet 12/28/2015Active pantoprazole DR (PROTONIX) 40 mg tablet 01/20/2016Active fexofenadine (JOSÉ LUIS) 180 mg tablet Take 180 mg by mouth once daily.Active VIT37/IRON/FOLIC ACID (PRENATA ORAL) Take 1 tablet by mouth once daily.Active CALCIUM CARBONATE (REECE-600 ORAL) Take 1 tablet by mouth once daily.Active Cholecalciferol, Vitamin D3, 5,000 unit tab Take 5,000 Units by mouth once daily.Active ferrous sulfate 325 mg (65 mg iron) tablet Take 1 tablet by mouth twice daily. 60 tablet Active sertraline (ZOLOFT) 50 mg tablet Take 50 mg by mouth once daily.Active Active Problems ProblemNoted DateDiagnosed TvnaFznzepqhhj41/14/2016 Social History Tobacco UseTypesPacks/DayYears UsedDateSmoking Tobacco: NeverSmokeless Tobacco: NeverAlcohol UseStandard Drinks/WeekCommentsNo0 (1 standard drink = 0.6 oz pure alcohol)CommentsUnknownSex and Gender InformationValueDate RecordedSex Assigned at BirthNot on fileLegal DesPndjvt38/08/2016 10:35 AM EDTGender IdentityNot on fileSexual OrientationNot on file Last Filed Vital Signs Vital SignReadingTime TakenCommentsBlood Ziwmyzuk523/8009 1:56 PM EDT Rloud8315 1:56 PM ZXYKduvzxnqzvh59.8 ??C (98.2 ??F)04/14/2016 1:56 PM EDTRespiratory Pypn028604/14/2016 1:56 PM EDTOxygen Saturation--Inhaled Oxygen Concentration--Qtqcfg017.7 kg (235 lb 3.2 oz)04/14/2016 1:56 PM EIMJpwgfp539.6 cm (5' 4.02 )04/14/2016 1:56 PM EDTBody Mass Index40.35004/14/2016 1:56 PM EDT Plan of Treatment Health MaintenanceDue DateLast DoneCommentsAnxiety Rysuxfwox44/01/2001Depression Ocatpnkef68/01/2001HIV Yejvmbgku61/01/2001Hepatitis C Iqvhuiujh24/01/2001 DTaP,Tdap,Td Vaccine (1 - Tdap)2002Hepatitis B Vaccine (1 of 3 - 19+ 3- dose series)2002Cervical Cancer Eszbvqcpv95/01/2004HPV Vaccine (1 - 3-dose SCDM series)2010Mammogram Ifxldyxur89/01/2023Covid-19 Vaccine (1 - 2024- season)2025Influenza Vaccine (#1)2025 Insurance Care Teams Team MemberRelationshipSpecialtyStart DateEnd Fabby Maynard RT(R) PCP - General01/15/16
--- OUTSIDE RECORDS SUMMARY | 2025-06-04 19:50 | XMS_ITS | Encounter Summary ---
Author Organization [facility] Address [address] [place] [address] Care Team Providers Care Park Warden Name Role Phone Fabby James MD Primary Care Provider [phone] Encounter Details DateTypeDepartmentCare Team (Latest Contact Info)Erqblwtnmus60/27/2025amboo flowsheet [facility] [address] [place] [address] Vel Grove DO [address] [place], [place] [id number] Social History Tobacco UseTypesPacks/DayYears UsedDateSmoking Tobacco: NeverSmokeless Tobacco: NeverAlcohol UseStandard Drinks/WeekCommentsYes2 (1 standard drink = 0.6 oz pure alcohol)caffeine: 1-2 cups/tbuS3163 Health LiteracyAnswerDate RecordedHow often do you need [...] a week 07/03/2024How often do you attend quaker or christian services?1 to 4 times per year07/03/2024o you belong to any clubs or organizations such as quaker groups, unions, fraternal or athletic groups, or school groups?No07/03/2024How often do you attend meetings of the clubs or organizations you belong to?Never07/03/2024 Are you , , , , never , or living with a partner?Vjhepxmcy11/25/2024UDIT-CAnswerDate RecordedQ1: How often do you have a [...] and heating?Hard 07/03/2024HQ-2AnswerDate RecordedPatient Health Questionnaire-2 Score3 11/03/2024[facility] [place] of Occupational Health - Occupational Stress QuestionnaireAnswerDate [...] steady place to sleep or slept in [facility] (including now)?No02/24/2023Housing Stability Vital SignAnswerDate RecordedIn the last 12 months, was there a time when you were not able to pay the mortgage or rent on time?No07/03/2024In the past 12 months, how many times have you moved where you were living?t any time in the past 12 months, were you homeless or living in a long-term (including now)?No 07/03/2024CommentsNoSex and Gender InformationValueDate RecordedSex Assigned at BirthNot on fileLegal GgiBkfxdt13/15/2023 6:44 PM EDTGender Identity Not on fileSexual OrientationNot on filedocumented as of this encounter Plan of Treatment DateTypeDepartmentCare Team (Latest Contact Info)Ycdzibraekr89/03/2026 8:30 AM ESTProcedure Visit [facility] [address] [place] [address] [place] [address] Vel Grove, DO [address] [place] [address] [address] [place] [address] documented as of this encounter Visit Diagnoses Not on filedocumented in this encounter Additional Health Concerns AssessmentNoted TimePHQ-9 Depression Total Score: 16011/03/2024 3:00 PM EDT documented as of this encounter Care Teams Team MemberRelationshipSpecialtyStart DateEnd Date Fabby James MD [address] [place] [address] PCP - GeneralFamily Medicine02/11/23documented as of this encounter
--- OUTSIDE RECORDS SUMMARY | 2025-06-04 19:50 | XMS_ITS | Encounter Summary ---
Author Organization [facility] Address [address] [place] [address] Care Team Providers Care Bait Man Name Role Phone Fabby James MD Primary Care Provider [phone] Encounter Details DateTypeDepartmentCare Team (Latest Contact Info)Tbzuscibvyo93/14/2025Travel Social History Tobacco UseTypesPacks/DayYears UsedDateSmoking Tobacco: NeverSmokeless Tobacco: NeverAlcohol UseStandard Drinks/WeekCommentsYes2 (1 standard drink = 0.6 oz pure alcohol)caffeine: 1-2 cups/siaC1359 Health LiteracyAnswerDate RecordedHow often do you need [...] a week 07/03/2024How often do you attend episcopalian or yarsani services?1 to 4 times per year07/03/2024o you belong to any clubs or organizations such as episcopalian groups, unions, fraVOYAA or athletic groups, or school groups?No07/03/2024How often do you attend meetings of the clubs or organizations you belong to?Never07/03/2024 Are you , , , , never , or living with a partner?Fngiqdjwp48/25/2024UDIT-CAnswerDate RecordedQ1: How often do you have a [...] and heating?Hard 07/03/2024HQ-2AnswerDate RecordedPatient Health Questionnaire-2 Score3 11/03/2024[facility] [place] of [facility] Health - Occupational Stress QuestionnaireAnswerDate [...] steady place to sleep or slept in ashelter (including now)?No02/24/2023Housing Stability Vital SignAnswerDate RecordedIn the last 12 months, was there a time when you were not able to pay the mortgage or rent on time?No07/03/2024In the past 12 months, how many times have you moved where you were living?t any time in the past 12 months, were you homeless or living in a skilled nursing (including now)?No 07/03/2024CommentsNoSex and Gender InformationValueDate RecordedSex Assigned at BirthNot on fileLegal ZwwQspjaz30/15/2023 6:44 PM EDTGender Identity Not on fileSexual OrientationNot on filedocumented as of this encounter Plan of Treatment DateTypeDepartmentCare Team (Latest Contact Info)Eehkdfcyztn38/03/2026 8:30 AM ESTProcedure Visit [facility] [address] [address] Vel Grove DO [address] [place], [place] [id number] documented as of this encounter Visit Diagnoses Not on filedocumented in this encounter Additional Health Concerns AssessmentNoted TimePHQ-9 Depression Total Score: 1603/ 3:00 PM EDT documented as of this encounter Care Teams Team MemberRelationshipSpecialtyStart DateEnd Date Fabby James MD [address] [place] [address] PCP - GeneralFamily Medicine02/11/23documented as of this encounter
--- OUTSIDE RECORDS SUMMARY | 2025-06-04 19:50 | XMS_ITS | Encounter Summary ---
Author Organization [facility] Address [address] [place] [address] Care Team Providers Care Postal Service Window Clerk Name Role Phone Fabby James MD Primary Care Provider [phone] Encounter Details DateTypeDepartmentCare Team (Latest Contact Info)Axkxximlutf30/20/2025Travel Social History Tobacco UseTypesPacks/DayYears UsedDateSmoking Tobacco: NeverSmokeless Tobacco: NeverAlcohol UseStandard Drinks/WeekCommentsYes2 (1 standard drink = 0.6 oz pure alcohol)caffeine: 1-2 cups/edwE2652 Health LiteracyAnswerDate RecordedHow often do you need [...] a week 07/03/2024How often do you attend judaism or amish services?1 to 4 times per year07/03/2024o you belong to any clubs or organizations such as judaism groups, unions, fraParkt or athletic groups, or school groups?No07/03/2024How often do you attend meetings of the clubs or organizations you belong to?Never07/03/2024 Are you , , , , never , or living with a partner?Kkauyxfpw02/25/2024UDIT-CAnswerDate RecordedQ1: How often do you have a [...] and heating?Hard 07/03/2024HQ-2AnswerDate RecordedPatient Health Questionnaire-2 Score3 11/03/2024[facility] [place] of Occupational Health - Occupational Stress QuestionnaireAnswerDate [...] were you homeless or living in a long term (including now)?No 07/03/2024CommentsNoSex and Gender InformationValueDate RecordedSex Assigned at BirthNot on fileLegal ZuwZespgq72/15/2023 6:44 PM EDTGender Identity Not on fileSexual OrientationNot on filedocumented as of this encounter Plan of Treatment DateTypeDepartmentCare Team (Latest Contact Info)Mhssumcahqq85/03/2026 8:30 AM ESTProcedure Visit [facility] [address] [place] [address] Vel Grove DO [address] [place], [place] [id number] documented as of this encounter Visit Diagnoses Not on filedocumented in this encounter Additional Health Concerns AssessmentNoted TimePHQ-9 Depression Total Score: 1603/ 3:00 PM EDT documented as of this encounter Care Teams Team MemberRelationshipSpecialtyStart DateEnd Date Fabby James MD [address] [place] [address] PCP - GeneralFamily Medicine02/11/23documented as of this encounter
--- OUTSIDE RECORDS SUMMARY | 2025-06-04 19:50 | XMS_ITS | Clinical Summary ---
Author Organization [employer] Sys tem Address [id number] [address] [place] [address] Care Team Providers Care Pneudraulic Systems Mechanic Name Role Phone Fabby James MD Primary Care Provider [phone] Allergies Active AllergyReactionsCriticalityNoted DateCommentsCat DanderOther (See Comments)07/16/2021og DanderOther (See Comments)07/16/2021House Dust MiteOther (See Comments)07/16/20218660Ldmwi81/03/2019MoldOther (See Comments)07/16/2021 Medications MedicationSigDispense QuantityRefillsLast FilledStart DateEnd DateStatus metFORMIN (GLUCOPHAGE) 500 mg tablet Take 1 tablet (500 mg total) by mouth in the morning and 1 tablet (500 mg total) in the evening. Take with meals.Active progesterone (FIRST-PROGESTERONE VGS) 200 mg suppository Insert 200 mg into the vagina nightly.Active PNV NO.95/FERROUS FUM/FOLIC AC ( ORAL) Take by mouth.Active ALBUTEROL SULFATE INHL Inhale.Active cetirizine (ZyrTEC) 10 mg tablet Take 1 tablet (10 mg total) by mouth in the morning.Active cholecalciferol, vitamin D3, 5,000 units tablet Take 1 tablet (5,000 Units total) by mouth in the morning.Active FOLIC ACID ORAL Take by mouth.Active azelastine (ASTELIN) 137 mcg (0.1 %) nasal spray USE 2 SPRAYS NASALLY TWICE DAILY05/28/2022ctive omeprazole (PriLOSEC) 40 mg capsule TAKE 1 CAPSULE BY MOUTH ONCE EVERY MORNING 30 TO 60 MINUTES PRIOR TO BREAKFAST 05/20/2022ctive fluticasone propion-salmeteroL (ADVAIR) 100-50 mcg/dose DISKUS Inhale 1 puff in the morning and 1 puff before bedtime.Active budesonide (PULMICORT) 0.25 mg/2 mL nebulizer solution Inhale 2 mL (0.25 mg total) by nebulization once daily.Active clotrimazole (MYCELEX) 10 mg beth TAKE 1 TABLET BY MOUTH FIVE TIMES A DAY FOR 10 DAYS02/22/2023ctive ferrous sulfate 325 (65 FE) mg tablet Active ibuprofen (MOTRIN) 800 mg tablet Take 1 tablet (800 mg total) by mouth every 8 (eight) hours.03/19/2023ctive oxyCODONE-acetaminophen (PERCOCET) 5-325 mg per tablet Take 1 tablet by mouth every 6 (six) hours.03/19/2023ctive ipratropium (ATROVENT) 42 mcg (0.06 %) nasal spray USE 2 SPRAYS IN EACH NOSTRIL 3 TIMES A DAYActive meloxicam (MOBIC) 15 mg tablet Indications:Herniated cervical discTAKE 1 TABLET (15 MG TOTAL) BY MOUTH IN THE MORNING 30 tablet 4Active gabapentin, bulk, 100 % powder Indications:Myalgia,Cervical radiculopathyFormula #8E: baclo2%+diclo3%+DMSO5%+gaba6%+lido2%+prilo2%. Apply 1-2 gm topically to affected area TID-QID. 120 g 1105Active Active Problems ProblemNoted DateDiagnosed DateCervical spondylosis without /15/2022 Overview (07/23/2022): Added automatically from request for surgery [id number] Seasonal allergic onycmjhr38/01/2021Moderate persistent asthma without nsunbhstumli38/21/2297Ulcfrrhkfoeo81/08/2019Recurrent major depression in /27/4466Urtwzrq74/04/8298Boegntycob06/14/2016 Encounters DateTypeDepartmentCare NasrRetajahgnpm44/28/2025Telephone [facility] [address] [place] [address] Nathanael Morganssabelino Astudillo CMA 04/05/2025Results Follow-Up [facility] [address] [place] [phone] Og Lema MD X-ray spine cervical 3 views or less04/02/2025 9:45 AM EDTOffice Visit [facility] [address] [place] [phone] Og Lema MD Cervical radiculopathy (Primary Dx); Somatic dysfunction of cervical region; Myalgia; Tendinopathy of left gluteus xaabuy3004/02/2025Travelfrom Last 3 Months Family History Medical HistoryRelationNameCommentsAsthmaBrotherBack ProblemsBrotherHypertension BrotherTourette syndromeBrotherSupraventricular tachycardiaMaternal Grandfather AsthmaMaternal GrandmotherDiabetesMaternal GrandmotherAsthmaMotherBack Problems MotherOsteoarthritisMotherAsthmaSisterBack ProblemsSisterRelationNameStatus CommentsBrotherMaternal GrandfatherMaternal GrandmotherMotherSister Social History Tobacco UseTypesPacks/DayYears UsedDateSmoking Tobacco: NeverSmokeless Tobacco: Never Tobacco Cessation:Counseling Given: Not Answered Alcohol UseStandard Drinks/WeekCommentsNo0 (1 standard drink = 0.6 oz pure alcohol)ChildcareAnswerDate EbhkdodgTivlnphoaYyhnxsd39/31/2019EmploymentAnswer Date VpcgkljlBurudmtlmcRcxfqme08/31/2019Hunger ScreeningAnswerDate Recorded Within the past 12 months we worried whether our food would run out before we got money to buy more.Never True07/23/2022Within the past 12 months the food we bought just didn't last and we didn't have money to get more.Never True 2Purpose - LifeAnswerDate RecordedPurpose and direction in lifeUnknown 1CommentsNoSex and Gender InformationValueDate RecordedSex Assigned at BirthNot on fileLegal WwmWcllcb74/06/2015 11:33 AM EDTGender IdentityNot on fileSexual OrientationNot on file Last Filed Vital Signs Vital SignReadingTime TakenCommentsBlood Wkrqdqgs354/7208 10:20 AM EDT Mpfrp774003/24/2023 10:20 AM EDTTemperature--Respiratory Pzse559409/11/2022 9:40 AM ESTOxygen Jazubylsnk87%07/23/2022 11:59 AM ESTInhaled Oxygen Concentration-- Erykwh474.1 kg (234 lb)04/02/2025 9:36 AM PKCKovvbo682.5 cm (5' 2 )04/02/2025 9:36 AM EDTBody Mass Index42.8004/02/2025 9:36 AM EDT Plan of Treatment Health MaintenanceDue DateLast DoneCommentsDepression Xpcdquyev62/01/1995Adult BMI Follow Up Plan2001DTaP,Tdap and Td Vaccines (1 - Tdap)2002 Tobacco Gkondbaqa37/01/2023Influenza Bshbqlt8404/09/2025dult BMI Mncgioyfc13Pap Smear/08/2024, 12/24/2022 Medical Devices Not on file Procedures Procedure NamePriorityDate/TimeAssociated DiagnosisCommentsXR SPINE CERVICAL 3 VWS OR OYWOGkshhiy99/25/2025 10:54 AM EDT Cervical radiculopathy from Last 3 Months Results * X-ray spine cervical 3 views or less (04/02/2025 10:54 AM EDT)Anatomical RegionLateralityModalityMSK, Neuro, Spine, C-spineN/AComputed Radiography Specimen (Source)Anatomical Location / LateralityCollection Method / Volume Collection TimeReceived Time04/03/2025 3:51 PM EDT Narrative 04/03/2025 3:51 PM EDT Clinical history: Neck pain Cervical spine: 04/02/2025 COMPARISON: 05/04/2022 FINDINGS: 3 views of the cervical spine were obtained. No focal osseous abnormalities evident. There is loss of intervertebral disc height at C6-C7. Facet alignment is anatomic. Minimal lower cervical facet hypertrophic changes are present. Prevertebral contours are normal IMPRESSION: Mild cervical degenerative changes with no focal or acute abnormality evident radiographically. Finalized by Raul Mayo MD on 04/03/2025 3:51 PM Procedure Note Raul Mayo MD - 04/03/2025 Clinical history: Neck pain Cervical spine: 04/02/2025 COMPARISON: 05/04/2022 FINDINGS: 3 views of the cervical spine were obtained. No focal osseousabnormalities evident. There is loss of intervertebral disc height atC6-C7. Facet alignment is anatomic. Minimal lower cervical facethypertrophic changes are present. Prevertebral contours are normal IMPRESSION: Mild cervical degenerative changes with no focal or acute abnormalityevident radiographically. Finalized by Raul Mayo MD on 04/03/2025 3:51 PM Authorizing ProviderResult TypeResult StatusOg Lema MDHILL[facility] ORDERABLESFinal Result from Last 3 Months Insurance Care Teams Team MemberRelationshipSpecialtyStart DateEnd Date Fabby James MD [address] [place] [address] [facility]
--- OUTSIDE RECORDS SUMMARY | 2025-06-04 19:50 | XMS_ITS | Encounter Summary ---
Author Organization [facility] Healthcare Address [address] [place] [address] Care Team Providers Care Remote Inpatient Coder Name Role Phone Fabby James MD Primary Care Provider [phone] Reason for Visit * ReasonCommentsMed Refill Encounter Details DateTypeDepartmentCare Team (Latest Contact Info)Sebhyzaeqcv50/13/2025Refill [facility] [address] [place] [address] Fabby James MD [address] [place] [address] Recurrent major depressive disorder, in partial remission Social History Tobacco UseTypesPacks/DayYears UsedDateSmoking Tobacco: NeverSmokeless Tobacco: NeverAlcohol UseStandard Drinks/WeekCommentsYes2 (1 standard drink = 0.6 oz pure alcohol)caffeine: 1-2 cups/pwyT8245 Health LiteracyAnswerDate RecordedHow often do you need [...] a week 07/03/2024How often do you attend worship or baptism services?1 to 4 times per year07/03/2024o you belong to any clubs or organizations such as worship groups, unions, fraternal or athletic groups, or school groups?No07/03/2024How often do you attend meetings of the clubs or organizations you belong to?Never07/03/2024 Are you , , , , never , or living with a partner?Kmaixcqxp93/25/2024UDIT-CAnswerDate RecordedQ1: How often do you have a [...] and heating?Hard 07/03/2024HQ-2AnswerDate RecordedPatient Health Questionnaire-2 Score3 11/03/2024[facility] - Occupational Stress QuestionnaireAnswerDate [...] place to sleep or slept in [facility] (including now)?No02/24/2023Housing Stability Vital SignAnswerDate RecordedIn the last 12 months, was there a time when you were not able to pay the mortgage or rent on time?No07/03/2024In the past 12 months, how many times have you moved where you were living?t any time in the past 12 months, were you homeless or living in a retirement (including now)?No 07/03/2024CommentsNoSex and Gender InformationValueDate RecordedSex Assigned at BirthNot on fileLegal TnjXphhlx32/15/2023 6:44 PM EDTGender Identity Not on fileSexual OrientationNot on filedocumented as of this encounter Plan of Treatment DateTypeDepartmentCare Team (Latest Contact Info)Zhboswwtidw77/03/2026 8:30 AM ESTProcedure Visit [facility] [address] [place] [address] [place] [address] Vel Grove, DO [address] [place] [address] [address] [place] [address] documented as of this encounter Visit Diagnoses Diagnosis Recurrent major depressive disorder, in partial remission documented in this encounter Additional Health Concerns AssessmentNoted TimePHQ-9 Depression Total Score: 16011/03/2024 3:00 PM EDT documented as of this encounter Care Teams Team MemberRelationshipSpecialtyStart DateEnd Date Fabby James MD [address] [facility] [place] [address] PCP - GeneralFamily Medicine02/11/23documented as of this encounter
--- OUTSIDE RECORDS SUMMARY | 2025-06-04 19:50 | XMS_ITS | Clinical Summary ---
Author Organization [facility] Address [address] [place] [address] Care Team Providers Care Pipe Finisher Name Role Phone Fabby James MD Primary Care Provider [phone] Allergies Active AllergyReactionsCriticalityNoted DateCommentsCat IzisvfKmyomwo39/08/2021 Dog Epithelium (Canis Lupus Familiaris)Tdozpba7407/16/2021 Other Reaction(s): Other (See Comments) Dust Mite BfbywpaEvnbezm28/08/6120XlayikvrbmwHsagqriuffslWyk47/11/2023Latex Nrxsau1502/16/2023Molds & MdezsPmrpimv25/08/2021 Medications MedicationSigDispense QuantityRefillsLast FilledStart DateEnd DateStatus Cholecalciferol (Vitamin D-3) 5000 UNIT/ML liquid OrallyActive cetirizine (ZyrTEC) 10 MG tablet Take 10 mg by mouth in the morning.Active Iron, Ferrous Sulfate, 325 (65 Fe) MG tablet Active Multiple Vitamins-Minerals (MULTIVIT/MULTIMINERAL ADULT PO) Active budesonide (EQ Budesonide Nasal) 32 MCG/ACT nasal spray Indications:Chronic rhinitisas directed Nasally 8.6 g 3Active metFORMIN (Glucophage) 500 MG tablet Indications:PCOS (polycystic ovarian syndrome)TAKE 1 TABLET BY MOUTH TWICE A DAY WITH FOOD 60 tablet 5Active albuterol HFA 90 mcg/act inhaler Indications:Moderate persistent asthma without complication (HCC)INHALE 2 PUFFS EVERY 6 HOURS IF NEEDED FOR SHORTNESS OF BREATH OR WHEEZING 18 g 5Active Fluticasone-Salmeterol (Advair Diskus) 250-50 MCG/ACT aerosol powder Indications:Asthma, allergic, mild intermittent, uncomplicated (HCC)Inhale 2 puffs in the morning and 2 puffs before bedtime. 60 each 5Active montelukast (Singulair) 10 MG tablet Indications:Moderate persistent asthma with exacerbation (HCC)TAKE 1 TABLET BY MOUTH EVERYDAY AT BEDTIME 90 tablet 5Active escitalopram (Lexapro) 20 MG tablet Indications:Recurrent major depressive disorder, in partial remissionTAKE 1 TABLET BY MOUTH EVERY DAY 30 tablet 5Active buPROPion XL (Wellbutrin XL) 150 MG 24 hr tablet Indications:AnxietyTake 1 tablet (150 mg) by mouth in the morning. Do not crush, chew, or split. 30 tablet 5Active escitalopram (Lexapro) 20 MG tablet Indications:Recurrent major depressive disorder, in partial remissionTAKE 1 TABLET BY MOUTH EVERY DAY 30 tablet /Discontinued montelukast (Singulair) 10 MG tablet Indications:Moderate persistent asthma with exacerbation (HCC)Take 1 tablet (10 mg) by mouth at bedtime 30 tablet /03/2025Discontinued busPIRone (Buspar) 5 MG tablet Indications:AnxietyTake 1 tablet (5 mg) by mouth in the morning and 1 tablet (5 mg) before bedtime. 60 tablet /04/2025Discontinued busPIRone (Buspar) 5 MG tablet Indications:AnxietyTAKE 1 TABLET (5 MG) BY MOUTH IN THE MORNING AND BEFORE BEDTIME 180 tablet Discontinued amoxicillin (Amoxil) 500 MG capsule Indications:Acute non-recurrent maxillary sinusitisTake 1 capsule (500 mg) by mouth in the morning and 1 capsule (500 mg) in the evening and 1 capsule(500 mg) before bedtime. Do all this for 10 days. 30 capsule /Expired fluconazole (Diflucan) 150 MG tablet Indications:Acute non-recurrent maxillary sinusitisTake 1 tablet (150 mg) by mouth 1 (one) time for 1 dose And repeat in one week 2 tablet Expired Active Problems ProblemNoted DateDiagnosed DateChronic /20/2023Morbid (severe) obesity due to excess tenyyosr60/20/2023COS (polycystic ovarian syndrome)02/25/2023 Cervical spondylosis without ugxwwelumj84/15/2022 Overview (02/25/2023): Added automatically from request for surgery [id number] Seasonal allergic myplcthy50/01/2021 Assessment & Plan (05/22/2025 2:13 PM EDT): Moderate persistent asthma without wllzyintiqwp34/21/2020 Assessment & Plan (05/22/2025 2:13 PM EDT): Orders: POCT SPIROMETRY WO BRONCHODILATOR POCT SPIROMETRY WO BRONCHODILATOR Bvhwnxwsxpql53/27/2017Recurrent major depressive disorder, in partial remission 02/02/2017 Assessment & Plan (04/15/2023 7:30 PM EDT): Despite the current sressors, she continues to do well on lexapro. Hiealut3206/12/2016 Assessment & Plan (05/22/2025 2:13 PM EDT): Orders: buPROPion XL (Wellbutrin XL) 150 MG 24 hr tablet; Take 1 tablet (150 mg) by mouth in the morning. Do not crush, chew, or split. Resolved Problems ProblemNoted DateDiagnosed DateResolved DateAllergic rhinitis due to pollen ervical spinal uftebidc04Neck pain HoarsenessYeast fmnjzxzui03/20/2023 07/25/20247086Arxlofvevmmx71Hemorrhage Encounters DateTypeDepartmentCare ElgiXwmchvnuwdq74/27/2025 2:00 PM EDTOffice Visit [facility] [address] [address] Vel Grove DO Hormone disorder (Primary Dx); Well woman exam with routine gynecological exam; Encounter for screening mammogram for malignant neoplasm of sqztap9506/04/2025 Bamboo flowsheet [facility] [address] [place] [address] Vel Grove DO 05/28/20252359Eiwrlq67/14/2025 1:00 PM EDTOffice Visit [facility] [address] [place] [address] Fabby James MD Moderate persistent asthma without complication (HCC) (Primary Dx); Seasonal allergic rhinitis due to pollen; Acute non-recurrent maxillary sinusitis; Fccoozd8605/22/2025amboo flowsheet [facility] [address] [facility] [place] [address] Fabby James MD 05/22/20256229Yzrhdo79/13/2025Refill [facility] [address] [facility] [place] [address] Fabby James MD Recurrent major depressive disorder, in partial vdbjtiuwg13/09/2025Refill [facility] [address] [place] [address] Fabby James MD Spbtats6105/16/2025Refill [facility] [address] [facility] [place] [address] Fabby James MD Moderate persistent asthma with exacerbation (HCC)04/25/2025Results Follow-Up [facility] [address] [place] [address] Fabby James MD XR chest 2 views04/24/2025 3:45 PM EDTAncillary Procedure [facility] [address] [place] [address] Moderate persistent asthma with exacerbation (HCC)04/24/2025 2:20 PM EDTOffice Visit [facility] [address] [place] [address] Fabby James MD Moderate persistent asthma with exacerbation (HCC) (Primary Dx); Asthma, allergic, mild intermittent, uncomplicated (HCC); Bpdmjnm5404/24/2025amboo flowsheet [facility] [address] [place] [facility] [place] [address] Fabby James MD 04/24/20257249Bnjbjq01/10/2025Refill [facility] [address] [place] [address] Fabby James MD Asthma, allergic, mild intermittent, uncomplicated (HCC)from Last 3 Months Family History Medical HistoryRelationNameCommentsAsthmaBrotherTom SturmArthritisFatherScott CheekDepressionFatherScott CheekArthritisMotherKarla WaughAsthmaMotherKarla WaughDepressionMotherKarla WaughMental illnessMotherKarla WaughMiscarriages / StillbirthsMotherKarla WaughOsteoarthritisMotherKarla WaughMiscarriages / StillbirthsMother's SisterRobin RoseCancerOtheruterine and ovarian: great aunts DiabetesOtherboth sides of familyPolycystic kidney diseaseOtherauntthyroid issuesOtherboth sides of familyArthritisSisterCandi NoftzAsthmaSisterCandi Noftz DepressionSisterCandi NoftzRelationNameStatusCommentsBrotherTom SturmDaughter AliveFatherScott CheekAliveMotherKarla WaughAliveMother's SisterRobin RoseOther SisterCandi NoftzSonAlive Social History Tobacco UseTypesPacks/DayYears UsedDateSmoking Tobacco: NeverSmokeless Tobacco: Never Tobacco Cessation:Counseling Given: Not Answered Alcohol UseStandard Drinks/WeekCommentsYes2 (1 standard drink = 0.6 oz pure alcohol)caffeine: 1-2 cups/[id number] Health LiteracyAnswerDate RecordedHow often do you need [...] a week 07/03/2024How often do you attend mandaeism or gnosticism services?1 to 4 times per year07/03/2024o you belong to any clubs or organizations such as mandaeism groups, unions, fraternal or athletic groups, or school groups?No07/03/2024How often do you attend meetings of the clubs or organizations you belong to?Never07/03/2024 Are you , , , , never , or living with a partner?Agdvxymxz44/25/2024UDIT-CAnswerDate RecordedQ1: How often do you have a [...] and heating?Hard 07/03/2024HQ-2AnswerDate RecordedPatient Health Questionnaire-2 Score3 11/03/2024[facility] - Occupational Stress QuestionnaireAnswerDate [...] steady place to sleep or slept in [place] (including now)?No02/24/2023Housing Stability Vital SignAnswerDate RecordedIn the last 12 months, was there a time when you were not able to pay the mortgage or rent on time?No07/03/2024In the past 12 months, how many times have you moved where you were living?011/25/2024At any time in the past 12 months, were you homeless or living in a [place] (including now)?No 4CommentsNoSex and Gender InformationValueDate RecordedSex Assigned at BirthNot on fileLegal KreLvgilv50/15/2023 6:44 PM EDTGender Identity Not on fileSexual OrientationNot on file Last Filed Vital Signs Vital SignReadingTime TakenCommentsBlood Sjogpult714/6010 1:35 PM EDT Kuymi212805/22/2025 1:04 PM CYFAbajzohyatf60.1 ??C (96.9 ??F)09/05/2024 2:41 PM ESTRespiratory Pbsu780111/03/2024 3:09 PM EDTOxygen Vkxofjtlyc32%05/22/2025 1:04 PM EDTInhaled Oxygen Concentration--Ryvzsb044 kg (230 lb 12 oz)06/04/2025 1:35 PM HTSEadznt244.6 cm (5' 4 )05/22/2025 1:04 PM EDTBody Mass Index39.6105/22/2025 1:04 PM EDT Plan of Treatment DateTypeDepartmentCare Team (Latest Contact Info)Vmafvfpnmhd36/03/2026 8:30 AM ESTProcedure Visit [facility] [address] [place] [address] Vel Grove DO [address] [place] [address] Health MaintenanceDue DateLast DoneCommentsMMR Vaccines (1 of 1 - Standard series)1984DTaP/Tdap/Td Vaccines (1 - Tdap)1990Varicella Vaccines (1 of 2 - 13+ 2-dose series)1996Hepatitis B Vaccines (1 of 3 - 19+ 3-dose series)2002Pneumococcal Vaccine: Pediatrics (0 to 5 Years) and At-Risk Patients (6 to 64 Years) (1 of 2 - PCV)2002HPV Vaccines (1 - 3-dose SCDM series)2010COVID-19 Vaccine ( season)2025Mammogram 6010/06/2024, 05/25/2024, 05/15/2024Influenza Vaccine (#1)2026 Postponed from 04/09/2025 (Patient Refused)Cervical Cancer ScreeningDiscontinued Pap YmeufHwmxtqheharw50/01/2025, 05/29/2024, 12/24/2022HIB VaccinesAged OutNo longer eligible based on patient's age to complete this topicHPV/Cotest DiscontinuedHepatitis A VaccinesAged OutNo longer eligible based on patient's age to complete this topicIPV VaccinesAged OutNo longer eligible based on patient's age to complete this topicMeningococcal B VaccineAged OutNo longer eligible based on patient's age to complete this topicMeningococcal VaccineAged OutNo longer eligible based on patient's age to complete this topicRotavirus VaccinesAged OutNo longer eligible based on patient's age to complete this topic Procedures Procedure NamePriorityDate/TimeAssociated DiagnosisCommentsPOCT SPIROMETRY WO EZFUOJQHDAGYJORsbmaay12/14/2025 2:27 PM EDT Moderate persistent asthma without complication (HCC) POCT SPIROMETRY WO OGWJSHRUWPCNZBKmbjqom04/14/2025 2:11 PM EDT Moderate persistent asthma without complication (HCC) XR CHEST 2 DKITPPxlafrk28/16/2025 3:07 PM EDT Moderate persistent asthma with exacerbation (HCC) PAP JFNKWHirzxup17/01/2025 12:00 AM EDTBI MAMMOGRAM DIAGNOSTIC TOMOSYNTHESIS PLYTJCvnpcpj10/28/2025 2:22 PM EST Mammogram abnormal Solitary cyst of right breast from Last 3 Months or Most Recently Relevant to Health Maintenance Results * POCT SPIROMETRY WO BRONCHODILATOR (05/22/2025 2:27 PM EDT) Only the most recent of2 resultswithin the time period is included. Specimen (Source)Anatomical Location / LateralityCollection Method / Volume Collection TimeReceived HjoaKrrqn15/14/2025 2:27 PM EDT Narrative Authorizing ProviderResult TypeResult StatusJechloe James MDPOINT OF CARE TEST ENTER/EDIT ORDERABLESFinal Result * XR chest 2 views (04/24/2025 3:07 PM EDT)Anatomical RegionLateralityModality ChestRadiographic ImagingSpecimen (Source)Anatomical Location / Laterality Collection Method / VolumeCollection TimeReceived Time04/25/2025 2:21 PM EDT Impressions 04/25/2025 2:22 PM EDT No acute radiographic findings. ELECTRONICALLY SIGNED BY: Giovanni Ibrahim MD Narrative 04/25/2025 2:22 PM EDT EXAMINATION/TECHNIQUE: XR CHEST 2 VIEWS HISTORY: Shortness of breath. Asthma. COMPARISON: Thoracic spine radiographs 07/23/2023. RESULT: No consolidation. No pleural effusion. No pneumothorax. Normal cardiomediastinal silhouette. No acute osseous findings. ?? Procedure Note Giovanni Ibrahim MD - 04/25/2025 EXAMINATION/TECHNIQUE: XR CHEST 2 VIEWS HISTORY: Shortness of breath. Asthma. COMPARISON: Thoracic spine radiographs 07/23/2023. RESULT: No consolidation. No pleural effusion. No pneumothorax. Normalcardiomediastinal silhouette. No acute osseous findings. IMPRESSION: No acute radiographic findings. ELECTRONICALLY SIGNED BY: Giovanni Ibrahim MD Authorizing ProviderResult TypeResult StatusFabby James MDIMG XR PROCEDURES Final Result * Pap Smear (12/07/2024 12:00 AM EDT)Specimen (Source)Anatomical Location / LateralityCollection Method / VolumeCollection TimeReceived TimeSwabCervical swab / Unknown Narrative Authorizing ProviderResult TypeResult StatusCorey Maine DOL CYTOLOGY ORDERABLESFinal ResultPerforming OrganizationAddressCity/State/ZIP CodePhone Number EXTERNAL LAB * Right diagnostic mammogram with tomosynthesis (10/06/2024 2:22 PM EST) Anatomical RegionLateralityModalityBreastRightMammographySpecimen (Source) Anatomical Location / LateralityCollection Method / VolumeCollection Time Received Time10/07/2024 3:49 PM EST Impressions 10/07/2024 3:59 PM EST No specific evidence of malignancy seen in the right breast. Ultrasound study performed today demonstrates likely small benign process similar to the prior ultrasound exam. When correlating all studies no convincing evidence of neoplasm. BIRADS 2 - Benign Findings DENSITY: There are scattered areas of fibroglandular density. FOLLOW-UP: Routine Screening Mammogram Board Certified Radiologists. ??Accredited by the ACR and FDA. MAMMOGRAPHY IS VERY IMPORTANT TO YOUR HEALTH. ??THE CITIZEN OF [place] CANCER SOCIETY GUIDELINES RECOMMEND THAT WOMEN 40 YEARS OF AGE AND OLDER SHOULD HAVE A MAMMOGRAM EVERY YEAR. A REMINDER LETTER WILL BE SENT AT THE APPROPRIATE TIME. ?? ELECTRONICALLY SIGNED BY: Pablito Sotelo M.D. Narrative 10/07/2024 3:59 PM EST EXAMINATION: BI MAMMOGRAM DIAGNOSTIC TOMOSYNTHESIS RIGHT CLINICAL HISTORY: ??Likely small cyst or possible adenoma at the 11 o'clock position. Other possibly would be less likely. ?? No convincing evidence of neoplasm. TECHNIQUE: Diagnostic digital mammogram study of the right breast was performed with 2D and 3D tomosynthesis imaging. Study was compared to the screening mammogram study of the breasts dated 05/15/2024, diagnostic mammogram study of the right breast dated 05/25/2024, right breast ultrasound study dated 05/25/2024 and right breast ultrasound study dated 10/06/2024. FINDINGS: Standard views of the right breast were obtained as well as coned-down compression views and true lateral view. Previously noted ill-defined approximately 2 x 2 cm area of asymmetric density in the upper outer portion of the right breast appears similar to the diagnostic mammogram study from 05/25/2024 and likely represents dense fibroglandular tissue. No convincing evidence of intervaldominant spiculated mass, grouped microcalcifications or skin thickening which would be suggestive of malignancy. Previously noted likely small benign process at the 11 o'clock position on the right breast ultrasound study appear similar on today's ultrasound exam and again likely related to a benign process. Procedure Note Pablito Sotelo MD - 10/07/2024 EXAMINATION: BI MAMMOGRAM DIAGNOSTIC TOMOSYNTHESIS RIGHT CLINICAL HISTORY: Likely small cyst or possible adenoma at the 11 o'clock position. Other possibly would be less likely. No convincing evidence of neoplasm. TECHNIQUE: Diagnostic digital mammogram study of the right breast wasperformed with 2D and 3D tomosynthesis imaging. Study was compared to thescreening mammogram study of the breasts dated 05/15/2024, diagnosticmammogram study of the right breast dated 05/25/2024, right breastultrasound study dated 05/25/2024 and right breast ultrasound study date10/06/2024. FINDINGS: Standard views of the right breast were obtained as well asconed-down compression views and true lateral view. Previously notedill-defined approximately 2 x 2 cm area of asymmetric density in the upperouter portion of the right breast appears similar to the diagnosticmammogram study from 05/25/2024 and likely represents dense fibroglandulartissue. No convincing evidence of interval dominant spiculated mass,grouped microcalcifications or skin thickening which would be suggestiveof malignancy. Previously noted likely small benign process at the 11o'clock position on the right breast ultrasound study appear similar ontoday's ultrasound exam and again likely related to a benign process. IMPRESSION: No specific evidence of malignancy seen in the right breast. Ultrasound study performed today demonstrates likely small benign processsimilar to the prior ultrasound exam. When correlating all studies noconvincing evidence of neoplasm. BIRADS 2 - Benign Findings DENSITY: There are scattered areas of fibroglandular density. FOLLOW-UP: Routine Screening Mammogram Board Certified Radiologists. Accredited by the ACR and FDA. MAMMOGRAPHY IS VERY IMPORTANT TO YOUR HEALTH. THE CITIZ[place] [employer]ER SOCIETY GUIDELINES RECOMMEND THAT WOMEN 40 YEARS OF AGE AND OLDER SHOULD HAVE AMAMMOGRAM EVERY YEAR. A REMINDER LETTER WILL BE SENT AT THE APPROPRIATE TIME. ELECTRONICALLY SIGNED BY: Pablito Sotelo M.D. Authorizing ProviderResult TypeResult StatusCorey Maine DOIMG BI PROCEDURESFinal Result from Last 3 Months or Most Recently Relevant to Health Maintenance Insurance Care Teams Team MemberRelationshipSpecialtyStart DateEnd Date Fabby James MD [address] [place] [address] [facility]CP [facility]02/11/23
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
== END 2025-06-04 19:48 | disposition home or self-care (01) ==
LOC: LAB 19:47
PROVIDERS: PCP Family Medicine; Visit Provider Obstetrics & Gynecology
DX: Z01.419 Encounter for gynecological examination (general) (routine) without abnormal findings (principal)
CPT/HCPCS: 87624; 88175

== ENCOUNTER 2025-06-22 13:26 | Outpatient (OUT) | payer OTHER, SELFPAY ==
--- OUTSIDE RECORDS SUMMARY | 2025-06-22 13:32 | XMS_ITS | CCD ---
Author Organization [facility] Care Team Providers Care Safety Lead Name Role Phone MAINE, DR DUNN Admitting Unavailable MAINE, DR DUNN Attending Unavailable WEST, DR SHARON Atkinson Consulting Unavailable SYLWIA, DR SHANNON Primary Care Unavailable MAINE, DR DUNN Consulting Unavailable MAINE, DR DUNN Admitting Unavailable MAINE, DR DUNN Consulting Unavailable MAINE, DR DUNN Attending Unavailable SYLWIA, DR SHANNON Primary Care Unavailable MAINE, DR DUNN Admitting Unavailable MAINE, DR DUNN Attending Unavailable MAINE, DR DUNN Consulting Unavailable SYLWIA, DR SHANNON Primary Care Unavailable MISC, DR PÉREZ Attending Unavailable MISC, DR PÉREZ Admitting Unavailable RAH, DR SHARON Atkinson Consulting Unavailable SYLWIA, DR SHANNON Primary Care Unavailable ELLY LOO Consulting Unavailable MISC, DR PÉREZ Attending Unavailable MISC, DR PÉREZ Consulting Unavailable MISC, DR PÉREZ Admitting Unavailable SYLWIA, DR SHANNON Primary Care Unavailable ZIEBER, DR CHITO Paiz Consulting Unavailable SYLWIA, DR SHANNON Primary Care Unavailable MAINE, DR DUNN Admitting Unavailable MAINE, DR DUNN Consulting Unavailable MAINE, DR DUNN Attending Unavailable REHMANTULIO Consulting Unavailable SYLWIA, DR SHANNON Primary Care Unavailable MAINE, DR DUNN Admitting Unavailable MAINE, DR DUNN Attending Unavailable SYLWIA, DR SHANNON Primary Care Unavailable MAINE, DR DUNN Admitting Unavailable MAINE, DR DUNN Consulting Unavailable MAINE, DR DUNN Attending Unavailable AGERICA GAXIOLA Consulting Unavailable BLANKA MENDIOLA Consulting Unavailable Ata WHALEN Attending Unavailable Fabby Dao MD Primary Care Provider Fabby Dao MD Unavailable [phone] Fabby Dao MD Primary Care Provider [phone] JANE BRYANT Attending Unavailable FABBY DAO Referring Unavailable FABBY DAO Primary Care Unavailable JANE BRYANT Referring Unavailable FABBY DAO Primary Care Unavailable FABBY DAO Attending Unavailable VEL GROVE Referring Unavailable MAINE, VEL Referring Unavailable FABBY DAO Attending Unavailable VEL GROVE Attending Unavailable FABBY DAO Attending Unavailable ELLY LOO Attending Unavailable CAMILLE ARTIS Attending Unavailab le FABBY DAO Referring Unavailable FABBY DAO Attending Unavailable VEL GROVE Attending Unavailable Fabby Dao MD Primary Care Provider Allergies Allergy ClassificationReported Allergen(s)Allergy TypeDate of OnsetReaction(s) Facility (1 source)natural latex rubberDrug allergy (disorder)[facility] Repository (20 sources)fluticasoneDrug Cmqhnmb59-95-5161HjlrdokzcxhnPJST Healthcare (20 sources)House dust miteAllergy to lpdyuagow05-08-0232QaxoinyGJMQ Healthcare (20 sources)Latex; Translations: [LATEX]Propensity to adverse reactions 23-43-9027XCARSaint [facility]'s [facility] (20 sources)Mold ExtractDrug Volkunh75-01-3882Aoahmll, Other (See Comments) [facility] (20 sources)Cat Hair ExtractPropensity to adverse wbydxhwex24-06-4884XzgtnglSQIZ Healthcare (20 sources)Dog Epithelium (Canis Lupus Familiaris)Allergy to substance 02-93-3207HrftgyfHDBSSouthern Ohio Medical Center Work Phone: (5 sources)LatexPropensity to adverse reactions to penf19-26-3568GruGeixlh Health System (7 sources)Cat Dander; Translations: [CAT DANDER]Propensity to adverse reactions to agrt85-18-9440Cnytm (See Comments)[facility] (7 sources)Dog Dander; Translations: [DOG DANDER]Propensity to adverse reactions to xdjg99-48-6933Qeiyj (See Comments)[facility] (7 sources)House Dust Mite; Translations: [HOUSE DUST MITE]Propensity to adverse reactions to bpsf01-77-5073Nlgxc (See Comments)[employer] (2 sources)Mold Extract; Translations: [MOLD]Drug Zocxige76-44-9874UodOukgzk Repository Medications Current Medications MedicationDrug Class(es)DatesSig (Normalized)Sig (Original)acetaminophen 325 mg / oxyCODONE hydrochloride 5 mg oral tablet (5 sources)Opioid AgonistStart: 45-37-3855mazp 1 tablet by mouth every six hours oxyCODONE-acetaminophen (PERCOCET) 5-325 mg per tablet Take 1 tablet by mouth every 6 (six) hours. 03/19/2023 Uruottmjz463164 200 actuat albuterol 0.09 mg/actuat metered dose inhaler (20 sources)beta2-Adrenergic AgonistStart: 41-15-2266tfpk 2 puff(s) by inhalation every six hours for wheezingalbuterol HFA 90 mcg/act inhaler Indications: Moderate persistent asthma without complication (HCC)INHALE 2 PUFFS EVERY 6 HOURS IF NEEDED FOR SHORTNESS OF BREATH OR WHEEZING 18 g 1 01/22/2025 ActiveStart: 08-30-2023 End: 25-09-3351gmsf 2 puff(s) by inhalation every six hours for wheezing albuterol HFA 90 mcg/act inhaler Indications: Moderate persistent asthma without complication (HCC)Inhale 2 puffs every 6 (six) hours if needed for shortness of breath or wheezing 18 g 3 08/30/2023 01/22/2025 DiscontinuedALBUTEROL SULFATE INHL Inhale. ActiveALBUTEROL SULFATE INHL Inhale. 0 Activeamoxicillin 500 mg oral capsule (2 sources)Penicillin-class AntibacterialStart: 05-22-2025 End: 58-63-1708ilpd 1 capsule by mouth in the morning, then take 1 capsule by mouth in the evening, then take 1 capsule by mouth at bedtimeamoxicillin (Amoxil) 500 MG capsule Indications: Acute non-recurrent maxillary sinusitis Take 1 capsule (500 mg) by mouth in the morning and 1 capsule (500 mg) in the evening and 1 capsule (500 mg) before bedtime. Do all this for 10 days. 30 capsule 05/22/2025 06/01/2025 Activeazelastine hydrochloride 0.137 mg/actuat metered dose nasal spray (5 sources)Histamine-1 Receptor AntagonistStart: 42-14-0800awtt 2 spray(s) nasal route twice dailyazelastine (ASTELIN) 137 mcg (0.1 %) nasal spray USE 2 SPRAYS NASALLY TWICE DAILY 05/28/2022 Activebudesonide 0.032 mg/actuat metered dose nasal spray (20 sources)CorticosteroidStart: 64-28-6847cpftinfdpv (EQ Budesonide Nasal) 32 MCG/ACT nasal spray Indications: Chronic rhinitis as directed Nasally 8.6 g 11 06/17/2023 Activetake 2 mL by inhalation once dailybudesonide (PULMICORT) 0.25 mg/2 mL nebulizer solution Inhale 2 mL (0.25 mg total) by nebulization once daily. Fqbhdq33 hr buPROPion hydrochloride 150 mg extended release oral tablet (6 sources)AminoketoneStart: 05-22-2025 End: 23-38-6529igaw 1 tablet by mouth every twenty-four hours in the morning buPROPion XL (Wellbutrin XL) 150 MG 24 hr tablet Indications: Anxiety Take 1 tablet (150 mg) by mouth in the morning. Do not crush, chew, or split. 30 tablet 1 05/22/2025 07/21/2025 Activecetirizine hydrochloride 10 mg oral tablet (20 sources)Histamine-1 Receptor Antagonisttake 1 tablet by mouth in the morning cetirizine (ZyrTEC) 10 MG tablet Take 10 mg by mouth in the morning. Active cholecalciferol 0.125 mg oral tablet (5 sources)Vitamin Dtake 1 tablet by mouth in the morningcholecalciferol, vitamin D3, 5,000 units tablet Take 1 tablet (5,000 Units total) by mouth in the morning. ActiveCholecalciferol (Vitamin D-3) 5000 UNIT/ML liquid (20 sources)Cholecalciferol (Vitamin D-3) 5000 UNIT/ML liquid Orally Active clotrimazole 10 mg oral lozenge (5 sources)Azole AntifungalStart: 60-14-5746ylzf 1 tablet by mouth five times dailyclotrimazole (MYCELEX) 10 mg beth TAKE 1 TABLET BY MOUTH FIVE TIMES A DAY FOR 10 DAYS 02/22/2023 Activeescitalopram 20 mg oral tablet (20 sources)Serotonin Reuptake InhibitorStart: 93-56-9158kada 1 tablet by mouth once dailyescitalopram (Lexapro) 20 MG tablet Indications: Recurrent major depressive disorder, in partial remission TAKE 1 TABLET BY MOUTH EVERY DAY 30 tablet 2 05/21/2025 ActiveStart: 11-03-2024 End: 27-23-9173coqu 1 tablet by mouth once dailyescitalopram (Lexapro) 20 MG tablet Indications: Recurrent major depressive disorder, in partial remission TAKE 1 TABLET BY MOUTH EVERY DAY 30 tablet 2 01/22/2025 ActiveStart: 05-29-2023 End: 79-88-4887qjeh 1 tablet by mouth once daily in the morningescitalopram (Lexapro) 10 MG tablet Indications: Recurrent major depressive disorder, in partial remission (HCC) (CMS/HCC) TAKE 1 TABLET BY MOUTH EVERY DAY IN THE MORNING 90 tablet 3 05/24/2024 11/03/2024 Discontinuedferrous sulfate 325 mg oral tablet (20 sources)Iron, Ferrous Sulfate, 325 (65 Fe) MG tablet Activefluconazole 150 mg oral tablet (13 sources)Azole AntifungalStart: 05-22-2025 End: 81-45-6328paww 1 tablet by mouth once, then take 1 tablet by mouth every weekfluconazole (Diflucan) 150 MG tablet Indications: Acute non-recurrent maxillary sinusitis Take 1 tablet (150 mg) by mouth 1 (one) time for 1 dose And repeat in one week 2 tablet 05/22/2025 05/22/2025tiveStart: 02-17-2024 End: 99-94-8582giabnzlamvq (Diflucan) 150 MG tablet Indications: Acute non- recurrent pansinusitis Once; may repeatin 72 hours if no improvement 2 tablet 02/17/2024 07/25/2024 Discontinued (Therapy completed)60 actuat fluticasone propionate 0.25 mg/actuat / salmeterol 0.05 mg/actuat dry powder inhaler (20 sources)Corticosteroid, beta2-Adrenergic AgonistStart: 02-98-2406cuue 2 puff(s) by inhalation in the morningFluticasone-Salmeterol (Advair Diskus) 250- 50 MCG/ACT aerosol powder Indications: Asthma, allergic,mild intermittent, uncomplicated (HCC) Inhale 2 puffs in the morning and 2 puffs before bedtime. 60 each 2 04/24/2025 ActiveStart: 04-20-2025 End: 91-89-5714ydes 1 puff(s) by inhalation in the morningFluticasone-Salmeterol (Advair Diskus) 250-50 MCG/ACT aerosol powder Indications: Asthma, allergic, mild intermittent, uncomplicated (HCC) Inhale 1 puff in the morning and 1 puff before bedtime. 60 each 2 04/20/2025 04/24/2025 DiscontinuedStart: 01-10-2025 End: 42-07-7230egrv 1 puff(s) by mouth every twelve hoursAdvair Diskus 250-50 MCG/ACT aerosol powder Indications: Asthma, allergic, mild intermittent, uncomp licated (HCC) INHALE 1 PUFF BY MOUTH EVERY 12 HOURS 60 each 2 01/10/2025 04/18/2025 Discontinued (Reorder)Start: 62-89-1753cqzn 1 puff(s) by mouth every twelve hoursAdvair Diskus 250-50 MCG/ACT aerosol powder Indications: Asthma, allergic, mild intermittent, uncomplicated (CMS/HCC) INHALE 1 PUFF BY MOUTH EVERY 12 HOURS 60 each 2 10/20/2024 ActiveStart: 06-17-2023 End: 82-06-5596hzol 1 puff(s) by inhalation onceFluticasone-Salmeterol (Advair Diskus) 250-50 MCG/ACT aerosol powder Indications: Asthma, allergic,mild intermittent, uncomplicated (CMS/HCC) Inhale 1 puff every 12 (twelve) hours 60 each 2 07/25/2024 Activetake 1 puff(s) by inhalation in the morningfluticasone propion-salmeteroL (ADVAIR) 100-50 mcg/dose DISKUS Inhale 1 puff in the morning and 1 puff before bedtime. Activetake 1 puff(s) by inhalation in the morning fluticasone propion-salmeteroL (ADVAIR) 100-50 mcg/dose DISKUS Inhale 1 puff in the morning and 1 puff before bedtime. 0 ActiveFolic Acid (5 sources)FOLIC ACID ORAL Take by mouth. ActiveFOLIC ACID ORAL Take by mouth. 0 Activegabapentin (11 sources)Anti-epileptic AgentStart: 07-16-2023 End: 01-37-9015Vwuifutpoi 25 MG tablet Compound cream 07/16/2023 07/25/2024 Discontinued (Therapy completed)Start: 93-40-1814Vcacvdwxmo 25 MG tablet Compound cream 07/16/2023 Activegabapentin, bulk, 100 % powder (6 sources)Start: 98-45-5554hcknfmczzj, bulk, 100 % powder Indications: Myalgia , Cervical radiculopathy Formula #8E: baclo2%+di clo3%+DMSO5%+gaba6%+lido2%+prilo2%. Apply 1-2 gm topically to affected area TID- QID. 120 g 11 04/02/2025 ActiveStart: 07-14-2023 End: 02-47-8742wfbuvzphle, bulk, 100 % powder Indications: Somatic dysfunction of cervical region Formula #8E: baclo2%+diclo3%+DMSO5%+gaba6%+lido2%+prilo2%. Apply 1-2 gm topically to affected area TID-QID. 120 g 3 07/14/2023 04/02/2025 Discontinued (Reorder)Start: 50-62-1437sdzswuhihk, bulk, 100 % powder Indications: Somatic dysfunction of cervical region Formula #8E: bacl o2%+diclo3%+DMSO5%+gaba6%+lido2%+prilo2%. Apply 1-2 gm topically to affected area TID-QID. 120 g 3 07/14/2023 Activeibuprofen 800 mg oral tablet (5 sources)Nonsteroidal Anti-inflammatory DrugStart: 03-41-9580nwhd 1 tablet by mouth every eight hoursibuprofen (MOTRIN) 800 mg tablet Take 1 tablet (800 mg total) by mouth every 8 (eight) hours. 03/19/2023 Activeipratropium bromide 0.042 mg/actuat metered dose nasal spray (13 sources)Anticholinergictake 2 spray(s) nasal route three times daily ipratropium (ATROVENT) 42 mcg (0.06 %) nasal spray USE 2 SPRAYS IN EACH NOSTRIL 3 TIMES A DAY Active End: 45-07-0903xttb 2 spray(s) nasal route three times dailyipratropium (Atrovent) 0.06 % nasal spray USE 2 SPRAYS IN EACH NOSTRIL 3 TIMES A DAY 07/03/2024 Discontinuedmeloxicam 15 mg oral tablet (15 sources)Nonsteroidal Anti-inflammatory DrugStart: 02-17-2023 End: 71-10-0646zjsy 1 tablet by mouth in the morningmeloxicam (MOBIC) 15 mg tablet Indications: Herniated cervical disc TAKE 1 TABLET (15 MG TOTAL) BY MOUTH IN THE MORNING 30 tablet 2 02/07/2024 ActivemetFORMIN hydrochloride 500 mg oral tablet (20 sources)BiguanideStart: 99-32-1399cxnx 1 tablet by mouth twice daily at mealtimemetFORMIN (Glucophage) 500 MG tablet Indications: PCOS (polycystic ovarian syndrome) TAKE 1 TABLET BY MOUTH TWICE A DAY WITH FOOD 60 tablet 5 11/16/2024 ActiveStart: 10-25-2023 End: 16-62-1451bijl 1 tablet by mouth twice daily at mealtimemetFORMIN (Glucophage) 500 MG tablet Indications: PCOS (polycystic ovarian syndrome) TAKE 1 TABLET BY MOUTH TWICE A DAY WITH FOOD 180 tablet 1 05/15/2024 Active montelukast 10 mg oral tablet (12 sources)Leukotriene Receptor AntagonistStart: 04-24-2025 End: 61-70-7620iurm 1 tablet by mouth once daily at bedtimemontelukast (Singulair) 10 MG tablet Indications: Moderate persistent asthma with exacerbation (HCC) TAKE 1 TABLET BY MOUTH EVERYDAY AT BEDTIME 90 tablet 1 05/16/2025 ActiveMultiple Vitamins-Minerals (MULTIVIT/MULTIMINERAL ADULT PO) (20 sources)Multiple Vitamins-Minerals (MULTIVIT/MULTIMINERAL ADULT PO) Active omeprazole 40 mg delayed release oral capsule (5 sources)Proton Pump InhibitorStart: 61-24-3316ueto 1 capsule by mouth once daily in the morningomeprazole (PriLOSEC) 40 mg capsule TAKE 1 CAPSULE BY MOUTH ONCE EVERY MORNING 30 TO 60 MINUTES PRIOR TO BREAKFAST 05/20/2022 ActivePNV NO.95/FERROUS FUM/FOLIC AC ( ORAL) (5 sources)PNV NO.95/FERROUS FUM/FOLIC AC ( ORAL) Take by mouth. Active PNV NO.95/FERROUS FUM/FOLIC AC ( ORAL) Take by mouth. 0 ActivepredniSONE 20 mg oral tablet (5 sources)Start: 04-24-2025 End: 48-87-9762jfgu 1 tablet by mouth in the morningpredniSONE (Deltasone) 20 MG tablet Indications: Moderate persistent asthma with exacerbation (HCC)Take 1 tablet (20 mg) by mouth in the morning and 1 tablet (20 mg) before bedtime. Do all this for 5 days. 10 tablet 04/24/2025 04/29/2025 ActiveStart: 07-03-2024 End: 16-67-7641ccil 1 tablet by mouth in the morningpredniSONE (Deltasone) 10 MG tablet Indications: Seasonal allergic rhinitis, unspecified trigger Take 1 tablet (10 mg) by mouth in the morning and 1 tablet (10 mg) before bedtime. Do all this for 5 days. 10 tablet 07/03/2024 07/08/2024 Activeprogesterone (FIRST- PROGESTERONE VGS) 200 mg suppository (5 sources)progesterone (FIRST-PROGESTERONE VGS) 200 mg suppository Insert 200 mg into the vagina nightly. Activeprogesterone (FIRST-PROGESTERONE VGS) 200 mg suppository Insert 200 mg into the vagina nightly. 0 Activesertraline 100 mg oral tablet (3 sources)Serotonin Reuptake Inhibitor End: 91-97-5628jysg 1 tablet by mouth in the morningsertraline (ZOLOFT) 100 mg tablet Take 1 tablet (100 mg total) by mouth in the morning. 04/02/2025 D iscontinued (Alternate therapy) Completed/Discontinued Medications MedicationDrug Class(es)DatesSig (Normalized)Sig (Original)busPIRone hydrochloride 5 mg oral tablet (7 sources)Start: 04-24-2025 End: 50-06-2407ilwx 1 tablet by mouth at bedtimebusPIRone (Buspar) 5 MG tablet Indications: Anxiety TAKE 1 TABLET (5 MG) BY MOUTH IN THE MORNING AND BEFORE BEDTIME 180 tablet 1 05/17/2025 05/22/2025 Discontinued1 ml triamcinolone acetonide 40 mg/ml injection (1 source)CorticosteroidStart: 04-02-2025 End: 58-35-9929xkocazpgjihfa acetonide (KENALOG-40) injection 40 mg Problems Active Problems Problem ClassificationProblemDateDocumented DateEpisodic/ChronicAnxiety disorders (20 sources)Other specified anxiety disorders; Translations: [Anxiety]Onset: 284440-33-4294WecbyyiBpknak (20 sources)Unspecified asthma, uncomplicated; Translations: [Asthma]Onset: 233046-02-0738MarvrqxTckskxanh disorders (7 sources)Excessive and frequent menstruation with regular cycle; Translations: [Dysmenorrhea, unspecified]Onset: 79-70-0295JnwftixEvnb disorders (20 sources)Recurrent major depression in partial remission; Translations: [Major depressive disorder, recurrent, in partial remission]Onset: 02-02-2017 84-87-6462FdhunakQuipm bone disease and musculoskeletal deformities (1 source)Segmental and somatic dysfunction of cervical region; Translations: [Segmental and somatic dysfunction of cervical region]Onset: 48-03-7684Japbebjl Other bone disease and musculoskeletal deformities (1 source)Cervical somatic dysfunction; Translations: [Segmental and somatic dysfunction of cervical region]55-15-3173YzlzktgxMmenq connective tissue disease (1 source)Myalgia, unspecified site; Translations: [Myalgia, unspecified site] Onset: 55-39-0866KfiuyeutFmvhe connective tissue disease (1 source)Muscle pain; Translations: [Myalgia, unspecified site]04-02-2025 EpisodicOther connective tissue disease (1 source)Disorder of tendon; Translations: [Unspecified disorder of synovium and tendon, left thigh]93-31-9193UwzsjwvqKzaam endocrine disorders (20 sources)Polycystic ovary syndrome; Translations: [Polycystic ovarian syndrome]Onset: 324828-10-3900FxbtaybXzqzg endocrine disorders (2 sources)Disorder of endocrine system; Translations: [Endocrine disorder, unspecified]06-39-3125LiobxpekLiqqj female genital disorders (1 source)Unspecified dyspareunia; Translations: [UNSPECIFIED DYSPAREUNIA]Onset: 52-61-5043NupvrffWwlqw female genital disorders (1 source)Abnormal uterine and vaginal bleeding, unspecified; Translations: [ABNORMAL UTERINE VAGINAL BLEED UNS]Onset: 64-78-9060KfgzvicQfqzc non-traumatic joint disorders (1 source)Pain in left shoulder; Translations: [PAIN IN LEFT SHOULDER]Onset: 06-96-5036IkumflvsKmlix nutritional; endocrine; and metabolic disorders (20 sources)Obesity caused by energy imbalance; Translations: [Morbid (severe) obesity due to excess calories]Onset: 328055-00-9571ZealzcdTlufd screening for suspected conditions (not mental disorders or infectious disease) (6 sources)Encounter for screening for malignant neoplasm of cervix; Translations: [Patient encounter status]Onset: 42-40-5941MaqggolfJtozb upper respiratory disease (20 sources)Chronic rhinitis; Translations: [Chronic rhinitis]Onset: 02-25-2023 74-91-9038EiepixoRthub upper respiratory disease (20 sources)Seasonal allergic rhinitis; Translations: [Other seasonal allergic rhinitis]Onset: 164654-27-2732KvvlcntQhvln upper respiratory infections (4 sources)Viral upper respiratory tract infection; Translations: [Acute upper respiratory infection, unspecified]63-02-7501JdorfxzvEoveofdlwwe; intervertebral disc disorders; other back problems (20 sources)Cervical spondylosis without myelopathy; Translations: [Spondylosis without myelopathy or radiculopathy, cervical region]Onset: ChronicUnclassified (1 source)CONTACT W/AND (SUSP) EXPOS COVID-19; Translations: [CONTACT W/AND (SUSP) EXPOS COVID-19]Onset: 26-16-4356Pwmqwxbanetr (1 source)Prior care(cervical spine)Onset: 04-02-2025 Past or Other Problems Problem ClassificationProblemDateDocumented DateEpisodic/ChronicCardiac dysrhythmias (20 sources)Palpitations; Translations: [Palpitations]Onset: 02-13-2019 Resolved: 513584-37-6321JesuwhsnPxghslfyuvtzx and procreative management (5 sources)Encounter for sterilization; Translations: [ENCOUNTER FOR STERILIZATION]Onset: 09-25-4623JqaqdmdeAkhhagngddqry and screening for infectious disease (1 source)Encounter for screening for human papillomavirus (HPV); Translations: [ENC SCREENING HUMAN PAPILLOMAVIRUS]Onset: 94-78-0455SegohrptQrmf disorders (20 sources)Mood disordersOnset: 08-30-2023 Resolved: 199248-49-5395Pihxnnk (20 sources)Mycosis; Translations: [Candidiasis, unspecified]Onset: 02-25-2023 Resolved: 716251-80-1094LygtgrwvRmsus circulatory disease (20 sources)Bleeding; Translations: [Hemorrhage, not elsewhere classified]Onset: 01-21-2016 Resolved: 189833-24-3977MhsjdrgwSpiou connective tissue disease (20 sources)Fibromyalgia; Translations: [Fibromyalgia]Onset: 02-02-2017 13-84-6667AkvmseirWgigr female genital disorders (1 source)Other noninflammatory disorders of ovary, fallopian tube and broad ligament; Translations: [OTH NONINFL D/O OVARY TUBE AND BRD LIG]Onset: 24-15-9062DmgraxeuKsnfv upper respiratory disease (20 sources)Allergic rhinitis due to pollen; Translations: [Allergic rhinitis due to pollen]Onset: 02-25-2023 Resolved: 421542-94-4199SypvltwWavxn upper respiratory disease (20 sources)Hoarse; Translations: [Dysphonia]Onset: 02-25-2023 Resolved: 211574-59-7357XjbybayiHzqohdfl codes; unclassified (1 source)Flushing; Translations: [FLUSHING]Onset: 00-59-8843Jjrfmzod Spondylosis; intervertebral disc disorders; other back problems (20 sources)Cervicalgia; Translations: [Spinal stenosis in cervical region] Onset: 06-23-2022 Resolved: 41-39-5383Cmrcxgim Results Test NameValueInterpretationReference RangeFacilityIGP,APTIMA HPV,AGE GDLNon 58-90-1992DZQ GDLN ACOG TESTINGNote.NOMS HealthcareComment on above:TESTS RESULT FLAG UNITS REF RANGE LAB Clinician Provided Cytology Information Source.............Vagina No. of containers..01 ThinPrep Vial Age Tuan Evans... [age] 01 FLAG LEGEND: L-Low Normal,H-High Normal,LL-Alert Low,HH-Alert High <-Panic Low,>-Panic High,A-Abnormal,AA-Critical Abnormal Performed at: 01 =[address] [address] Juanita Reyes MD, HPV APTIMAPositiveAbnormalNegativeNOMS HealthcareComment on above:This nucleic acid amplification test detects fourteen high- risk HPV types (16,18,31,33,35,39,45,51,52,56,58,59,66,68) without differentiation. HPV GENOTYPE 16NegativeNegativeNOMS HealthcareHPV GENOTYPE 18,45NegativeNegative NOMS HealthcareComment on above:Performed at: =[address] [id number] Political Research Scientist: Juanita Reyes MD, Phone: [phone] Performed at: [address] [id number] Political Research Scientist: Juanita Reyes MD, Phone: [phone] IGP, APTIMA HPV, RFX 16/18,45Note.NOMS HealthcareComment on above:TESTS RESULT FLAG UNITS REF RANGE LAB DIAGNOSIS: 02 NEGATIVE FOR INTRAEPITHELIAL LESION OR MALIGNANCY. Specimen adequacy: 02 Satisfactory for evaluation. Performed by: 02 Ivory Clark, Lay Ups Assembler ([facility]) . 02 Note: Note 02 The Pap smear is a screening test designed to aid in the detection of premalignant and malignant conditions of the uterine cervix. It is not a diagnostic procedure and should not be used as the sole means of detecting cervical cancer. Both false-positive and false-negative reports do occur. Test Methodology: Note 02 This liquid based ThinPrep(R) pap test was interpreted using the Cache IQ(R) GenHackHands(TM) Cervical Algorithm whole slide imaging system. HPV Genotype Reflex Note 02 Criteria met, see HPV Genotype results. FLAG LEGEND: L-Low Normal,H-High Normal,LL-Alert Low,HH-Alert High <-Panic Low,>-Panic High,A-Abnormal,AA-Critical Abnormal Performed at: [address] [address] Juanita Reyes MD, Interpretation and review of laboratory resultsAbnoPremier Health [facility] HackHands SPATULA-ALONE VAGINA CLINISYNCNOSD HealthcareNo Panel Informationon 83-93-4511Tqxmalfktqlhik and review of laboratory resultsNormalSaint John's Breech Regional Medical CenterNOSD HealthcareNo Panel InformationOrdered By: Shelli Colbert on 92-95-0392Adsnpqteqinwwb and review of laboratory resultsNormConemaugh Nason Medical CenterNOSD HealthcareXR CHEST 2 VIEWSon 58-42-0885EF CHEST 2 VIEWSEXAMINATION/TECHNIQUE: XR CHEST 2 VIEWS HISTORY: Shortness of breath. Asthma. COMPARISON: Thoracic spine radiographs 07/23/2023. RESULT: No consolidation. No pleural effusion. No pneumothorax. Normal cardiomediastinal silhouette. No acute osseous findings. IMPRESSION: No acute radiographic findings. ELECTRONICALLY SIGNED BY: Giovanni Ibrahim MDNormalNot AvailableXR SPINE CERVICAL 3 VWS OR LESSon [id number] SPINE CERVICAL 3 VWS OR LESSXR SPINE CERVICAL 3 VWS OR LESS Clinical history: Neck pain Cervical spine: 04/02/2025 [...] by Raul Mayo MD on 04/03/2025 3:51 [facility] PPGPAP IG, APT HPV RFX 16/18,45on 97-12-0912SII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 [facility] Collection Date/Time: [facility] Results Received Date/Time: [facility] Reported Date/Time: [id number] By: #### [id number], 968T, 77103 #### [facility] Default [address] [place], [place] [address]Rcnxgfy/Globulin [Mass ratio]1.7 {ratio}Normal1.0-2.5Nortbannern [facility] SpecialistComment on above:Order Comment: [facility] performed at: [employer] [facility], [address] [place] [address], [address] [place] [address], [address], [employer] Mdm Architect: Mark Dominique MD [facility] Collection Date/Time: [facility] Results Received Date/Time: [facility] Reported Date/Time: [id number] By: #### [id number], 968T, 55885 #### [facility] [address] [place], [place] [address]TTJ [Catalytic activity/Vol]50 U/TBqsrtj19-430Sxhcrviq [facility] SpecialistComment on above:Order Comment: [facility] performed at: [employer], [employer] [facility], [address] [place] [address], [address] [place] [address], [phone], [employer] Mdm Architect: Mark Dominique MD [facility] Collection Date/Time: [facility] Results Received Date/Time: [facility] Reported Date/Time: [id number] By: #### [id number], 968T, 99112 #### [facility] [address] [place], [place] [address]VIP [Catalytic activity/Vol]16 U/LNormal6-29NoCherrington Hospital SpecialistComment on above:Order Comment: [facility] performed at: [place], [employer] [facility], [address] [place] [address], [address] [place] [address], [address] [place] [address], [employer] Mdm Architect: Mark Dominique MD [facility] Collection Date/Time: [facility] Results Received Date/Time: [facility] Reported Date/Time: [id number] By: #### [id number], 968T, 28780 #### [facility] [address] [place], [place] [address]CYG [Catalytic activity/Vol]14 U/VPzxfbh06-21Cfmxghhp [place] [facility] SpecialistComment on above:Order Comment: [facility] performed at: [place], [employer] [facility], [address] [place] [address], [address] [place] [address], [address] [place] [address], [employer] Mdm Architect: Mark Dominique MD [facility] Collection Date/Time: [facility] Results Received Date/Time: [facility] Reported Date/Time: [id number] By: #### [id number], 968T, 97251 #### [facility] [address] [place], [place] [address]Bchzounva [Mass/Vol]0.4 mg/dLNormal0.2-1.2[facility]herSal[facility] SpecialistComment on above:Order Comment: [facility] performed at: Loc[place], [employer] [facility], [address] [place] [address], [address] [place] [address], [address] [place] [address], [employer] Mdm Architect: Mark Dominique MD [facility] Collection Date/Time: [facility] Results Received Date/Time: [facility] Reported Date/Time: [id number] By: #### [id number], 96, 56539 #### [facility] [address] [place], [place] [address]BLA/CREA28 NOT APPLICABLENormal6-22NortRegency Hospital Company SpecialistComment on above:Order Comment: [facility] Testing performed at: [facility], [employer] [facility], [address] [place] [address], [address] [place] [address], [address] [place] [address], [employer] Mdm Architect: Mark Dominique MD [facility] Collection Date/Time: [facility] Results Received Date/Time: [facility] Reported Date/Time: [id number] By: #### [id number], 96, #### [facility] [address] [place], [place] [address]Hrqhqsj [Mass/Vol]9.0 mg/dLNormal8.6-10.2[facility] SpecialistComment on above:Order Comment: [facility] performed at: [facility], [employer] [facility], [address] [place] [address], [address] [place] [address], [address] [place] [address], [employer] Mdm Architect: Mark Dominique MD [facility] Collection Date/Time: [facility] Results Received Date/Time: [facility] Reported Date/Time: [id number] By: #### [id number], 96, #### [facility] [address] [place], [place] [address]Ciykfdxz [Moles/Vol]104 mmol/CQhbfrw83-218Exaqzopf [place] [facility] SpecialistComment on above:Order Comment: [facility] Testing performed at: [facility], [employer] [facility], [address] [place] [address], [address] [place] [address], [address] [place] [address], [employer] Mdm Architect: Mark Dominique MD [facility] Collection Date/Time: [facility] Results Received Date/Time: [facility] Reported Date/Time: [id number] By: #### [id number], 968, #### [facility] Default [address] [place], [place] [address]DB5 [Moles/Vol]28 mmol/MNpgpps60-17Jvjtyuio [facility] SpecialistComment on above:Order Comment: [facility] performed at: [place], [employer] [facility], [address] [place] [address], [address] [place] [address], [address] [place] [address], [employer] Mdm Architect: Mark Dominique MD [facility] Collection Date/Time: [facility] Results Received Date/Time: [facility] Reported Date/Time: [id number] By: #### [id number], 96, #### [facility] Default [address] [place], [place] [address]Yzmuwtlgvd [Mass/Vol]0.58 mg/dLNormal0.50-1.10[facility]ern [facility] SpecialistComment on above:Order Comment: [facility] performed at: [place], [employer] [facility], [address] [place] [address], [address] [place] [address], [address] [place] [address], [employer] Mdm Architect: Mark Dominique MD [facility] Collection Date/Time: [facility] Results Received Date/Time: [facility] Reported Date/Time: [id number] By: #### [id number], 968, #### [facility] Default [address] [place], [place] [address]uDGWWU569 mL/min/1.11k5Rcxtvb> OR = 60N[facility]annern [facility] SpecialistComment on above:Order Comment: [facility] Testing performed at: [place], [employer] [facility], [address] [place] [address], [address] [place] [address], [address] [place] [address], [employer] Mdm Architect: Mark Dominique MD [facility] Collection Date/Time: [facility] Results Received Date/Time: [facility] Reported Date/Time: [id number] By: #### [id number], 968T, 64002 #### [facility] Default [address] [place], [place] [address]yZMMSWH159 mL/min/1.51v9Qgccsf> OR = 60[facility] SpecialistComment on above:Order Comment: [facility] Testing performed at: [facility], [employer] [facility], [address] [place] [address], [address] [place] [address], [address] [place] [address], [employer] Mdm Architect: Mark Dominique MD [facility] Collection Date/Time: [facility] Results Received Date/Time: [facility] Reported Date/Time: [id number] By: #### [id number], 968, #### [facility] Default [address] [place], [place] [address]Rtnvomgi (S) [Mass/Vol]2.6 g/dLNormal1.9-3.7Nortbannern [facility] SpecialistComment on above:Order Comment: [facility] Testing performed at: [facility], [employer] [facility], [address] [place] [address], [address] [place] [address], [address] [place] [address], [employer] Mdm Architect: Mark Dominique MD [facility] Collection Date/Time: [facility] Results Received Date/Time: [facility] Reported Date/Time: [id number] By: #### 03582E, 96, #### [facility] Default [address] [place], [place] [address]Mzjfdlb [Mass/Vol]89 mg/iXAvaqwi86-16Stqcfird [place] [facility] SpecialistComment on above:Order Comment: [facility] Testing performed at: [facility], [employer] [facility], [address] [place] [address], [address] [place] [address], [address] [place] [address], [employer] Mdm Architect: Mark Dominique MD [facility] Collection Date/Time: [facility] Results Received Date/Time: [facility] Reported Date/Time: [id number] Comment: Fasting reference intervalPerformed By: #### [id number], 96, #### [facility] Default [address] [place] [address]Qrplxhdpo [Moles/Vol]4.1 mmol/LNormal3.5-5.3NortRegency Hospital Company SpecialistComment on above:Order Comment: [facility] Testing performed at: [facility], [employer] [facility], [address] [place] [address], [address] [place] [address], [phone], [employer] Mdm Architect: Mark Dominique MD [facility] Collection Date/Time: [facility] Results Received Date/Time: [facility] Reported Date/Time: [id number] By: #### [id number], 96, #### [facility] Default [address] [place] [address]Igwrmic [Mass/Vol]6.9 g/dLNormal6.1-8.1[facility]herSalem [facility] SpecialistComment on above:Order Comment: [facility] Testing performed at: [facility], [employer] [facility], [address] [place] [address], [address] [place] [address], [address] [place] [address], [employer] Mdm Architect: Mark Dominique MD [facility] Collection Date/Time: [facility] Results Received Date/Time: [facility] Reported Date/Time: [id number] By: #### [id number], , #### [facility] Default [address] [place] [address]Dwezbq [Moles/Vol]138 mmol/IWqzbgi038-692Ytrkuabr [place] [facility] SpecialistComment on above:Order Comment: [facility] Testing performed at: [facility], [employer] [facility], [address] [place] [address], [address] [place] [address], [address] [place] [address], [employer] Mdm Architect: Mark Dominique MD [facility] Collection Date/Time: [facility] Results Received Date/Time: [facility] Reported Date/Time: [id number] By: #### [id number], 96, #### [facility] Default [address] [place] [address]Jhgf nitrogen [Mass/Vol]16 mg/dLNormal7-25[facility] [place] [facility] SpecialistComment on above:Order Comment: [facility] Testing performed at: [facility], [employer] [facility], [address] [facility], [address] [place] [address], [address], [employer] Mdm Architect: Mark Dominique MD [facility] Collection Date/Time: [facility] Results Received Date/Time: [facility] Reported Date/Time: [id number] By: #### [id number], 96, #### [facility] Default [address] [place] [address]Y - Lipid Panelon 03-56-9695Ryabshpogvz [Mass/Vol]178 mg/dLNormal <200[facility] SpecialistComment on above:Order Comment: [facility] Testing performed at: [facility], [employer] [facility], [address] [place] [address], [address] [place] [address], [address], [employer] Mdm Architect: Mark Dominique MD [facility] Collection Date/Time: [facility] Results Received Date/Time: [facility] Reported Date/Time: [id number] By: #### [id number], , #### [facility] Default [address] [place] [address]Mhpzlpxoaah in HDL [Mass/Vol]58 mg/dLNormal> OR = 50[facility] SpecialistComment on above:Order Comment: [facility] Testing performed at: [facility], [employer] [facility], [address] [place] [address], [address] [place] [address], [address], [employer] Mdm Architect: Mark Dominique MD [facility] Collection Date/Time: [facility] Results Received Date/Time: [facility] Reported Date/Time: [id number] By: #### [id number], 96, #### [facility] Default [address] [place], [place] [address]Oooyityfqnr in LDL [Mass/Vol]99 mg/dLNormalNoCherrington Hospital SpecialistComment on above:Order Comment: [facility] Testing performed at: Locality, [employer] [facility], [address] [place] [address], [address] [place] [address], [address], [employer] Mdm Architect: Mark Dominique MD [facility] Collection Date/Time: [facility] Results Received Date/Time: [facility] Reported Date/Time: [id number] Comment: Reference range: <100 Desirable range <100 mg/dL for primary prevention; <70 mg/dL for patients with CHD or diabetic patients with > or = 2 CHD risk factors. LDL-C is now calculated using the Melissa calculation, which is a validated novel method providing better accuracy than the Friedewald equation in the estimation of LDL-C. Zoran SS et al. ANITA. 2013;310(19): 3877-1524 (http://education.[employer].[place]/faq/WLV177)Performed By: #### 70301Y, 968T, 69965 #### [facility] Default [address] [place], [place] [address]Jxfxheogcha.total/Cholesterol in HDL [Mass ratio]3.1 {ratio} Normal<5.0NoCherrington Hospital SpecialistComment on above:Order Comment: [facility] Testing performed at: [employer] [facility], [address] [place] [address], [address] [place] [address], [address], [employer] Mdm Architect: Mark Dominique MD [facility] Collection Date/Time: [facility] Results Received Date/Time: [facility] Reported Date/Time: [id number] By: #### 95810D, 968T, 23948 #### [facility] Default [address] [place], [place] [address]JJN HDL EGIRQZVQBSA549 mg/dL (calc)Normal<130NortRegency Hospital Company SpecialistComment on above:Order Comment: [facility] Testing performed at: [employer] [facility], [address] [facility], [address] [place] [address], [address], [employer] Mdm Architect: Mark Dominique MD [facility] Collection Date/Time: [facility] Results Received Date/Time: [facility] Reported Date/Time: [id number] Comment: For patients with diabetes plus 1 major ASCVD risk factor, treating to a non-HDL-C goal of <100 mg/dL (LDL-C of <70 mg/dL) is considered a therapeutic option.Performed By: #### [id number], 968T, 60191 #### [facility] Default [address] [place], [place] [address]Jvftdrsnrkka [Mass/Vol]114 mg/dLNormal<150[facility] SpecialistComment on above:Order Comment: [facility] performed at: [place], [place] [facility], [address] [facility], [address] [place] [address], [address], [employer] Mdm Architect: Mark Dominique MD [facility] Collection Date/Time: [facility] Results Received Date/Time: [facility] Reported Date/Time: [id number] By: #### [id number], 96, 02455 #### [facility] Default [address] [place], [place] [address]S - TSH WITH REFLEX TO FREE T4on 48-01-5348UJZ W/REFLEX TO FT4 2.01 mIU/LNormalNortbannern [facility] SpecialistComment on above:Order Comment: [facility] performed at: Locality, [employer] [facility], [address] [place] , [address] [place] [address], [address], [employer] Mdm Architect: Mark Dominique MD [facility] Collection Date/Time: [facility] Results Received Date/Time: [facility] Reported Date/Time: [id number] Comment: Reference Range > or = 20 Years 0.40-4.50 Ranges First trimester 0.26-2.66 Second trimester 0.55-2.73 Third trimester 0.43-2.91Performed By: #### 56288B, 968T, 11038 #### [facility] Default [address] [place] [address] Vital Signs Date TimeVital SignValuePerforming BcwgllzvnBsxrijig85-50-2842 13:35-0400Body mass index (BMI) [Ratio]39.61 kg/a3Vqxao Maine DO Work Phone: [facility] CenterGqqgrksemr96-54-7955 13:35-0400Body dulhrb539.67 kgCorey Maine DO Work Phone: [phone] [address]Tmxrjkokil07-22-6235 13:35-0400Diastolic blood mm[Hg]Vel Maine DO Work Phone: [phone]-[facility] CenterZkjtpbebui27-10-9240 13:35-0400Systolic blood rbbwjyeq094 mm[Hg]Vel Maine DO Work Phone: [phone]-[facility] CenterGymalvccnp24-66-8568 13:04-0400Body .6 cmFabby Dao MD Work Phone: [facility] CenterQvkyerwgyp79-04-0816 13:04-0400Body mass index (BMI) [Ratio]39.31 kg/t5WmgionozFabby Dao MD Work Phone: [facility] CenterBdoxaqwzvk79-60-4236 13:04-0400Body adfwqr221.87 kgFabby Dao MD Work Phone: [facility] CenterTsqlgkorde48-05-8277 13:04-0400Diastolic blood xivbcdht67 mm[Hg]Fabby Dao MD Work Phone: [place] [address]Hdozaetrtr32-63-0330 13:04-0400Heart rate71 /min Fabby Dao MD Work Phone: [place] [address]Ogkgwyweyf89-16-2910 13:04-1512SgN3% (BldA) [Mass fraction]97 %Fabby Dao MD Work Phone: [place] [address]Nuwvlzoqyp96-42-2197 13:04-0400Systolic blood ziujnfww638 mm[Hg]Fabby Dao MD Work Phone: [facility] CenterBrgeeiwrac85-44-1561 14:20-0400Body mxvuod723.6 cmFbaby Dao MD Work Phone: [facility] CenterPtvgdonesv59-67-3694 14:20-0400Body mass index (BMI) [Ratio]39.14 kg/i4YepuvetsFabby Dao MD Work Phone: [facility] CenterZejddgtynb69-98-3723 14:20-0400Body .42 kgFabby Dao MD Work Phone: [facility] CenterDvegmwbugo42-07-2303 14:20-0400Diastolic blood zivibjqj02 mm[Hg]Fabby Dao MD Work Phone: [facility] CenterWstqwaclge92-24-2564 14:20-0400Heart rate88 /min Fabby Dao MD Work Phone: [facility] CenterCbeaidaggs95-42-1280 14:20-7961RpN5% (BldA) [Mass fraction]97 %Fabby Dao MD Work Phone: [facility] CenterGdgivugfrb52-17-5023 14:20-0400Systolic blood mm[Hg]Fabby Dao MD Work Phone: [facility] CenterQzuycblejq79-63-4629 09:36-0400Body .5 Gurinder Bryant MD Work Phone: [facility]08-25-2025 09:36-0400Body mass index (BMI) [Ratio]42.8 kg/m2Jane Bryant MD Work Phone: [facility]08-25-2025 09:36-0400Body xczycn292.14 kgJane Bryant MD Work Phone: [facility]05-01-2025 08:47-0400Body mass index (BMI) [Ratio]40.3 kg/l2Ujqhf Maineagueda ROLDAN Work Phone: [facility] CenterJryzufgipv81-42-8544 08:47-0400Body .5 kgCorey Maine DO Work Phone: [facility] CenterUbrjhpvcay15-18-5761 08:47-0400Diastolic blood neqummfd94 mm[Hg]Vel Maine DO Work Phone: [facility] CenterLuhhzgsfki98-92-1185 08:47-0400Systolic blood gbrgykpb406 mm[Hg]Vel Clevelando DO Work Phone: [facility] CenterGakwsdpbis05-16-6364 15:09-0400Body qekdqk946.6 cmFabby Dao MD Work Phone: [facility] CenterAdljuxsfrx32-23-4823 15:09-0400Body mass index (BMI) [Ratio]39.82 kg/h5FfgchorvFabby Dao MD Work Phone: [facility] CenterFerqvrwrfk58-47-1510 15:09-0400Body vdehpz509.23 kgFabby Dao MD Work Phone: [facility] CenterQclwkayqba31-84-2496 15:09-0400Diastolic blood gguhkjrj51 mm[Hg]Fabby Dao MD Work Phone: [facility] CenterCxuvogqdsy27-31-6929 15:09-0400Heart rate68 /min Fabby Dao MD Work Phone: [phone] CenterHtcutyhfmj96-04-4749 15:09-0400Respiratory rate18 /minFabby Dao MD Work Phone: [phone] CenterMharufkpcb89-75-9457 15:09-6706DcM6% (BldA) [Mass fraction]97 %Fabby Dao MD Work Phone: [phone] CenterFzuapimrld30-46-0817 15:09-0400Systolic blood anhdvsrc655 mm[Hg]Fabby Dao MD Work Phone: [phone] Medical CenterGvltoxcviv25-08-4639 14:41-0500Body mass index (BMI) [Ratio]40.34 kg/f7CszvibpkFabby Dao MD Work Phone: [phone] CenterQuocvwmujt60-54-5376 14:41-0500Body temperature 96.91 [degF]Fabby Dao MD Work Phone: [phone] [place], [place] [address]Xeuubcivik43-94-8269 14:41-0500Body xhhxtu479.59 kgFabby Dao MD Work Phone: [phone] [place], [place] [address]Cmncrglhgx84-95-7404 14:41-0500Diastolic blood zgzismil82 mm[Hg]Fabby Dao MD Work Phone: [phone]01-28-2025 14:41-0500Heart ymqp676 /min Fabby Dao MD Work Phone: [phone]01-28-2025 14:41-9103NjX5% (BldA) [Mass fraction]96 %Fabby Dao MD Work Phone: [phone])013-[address] [place], [place] [address]Uadtqezfva62-63-2087 14:41-0500Systolic blood aagqgspt048 mm[Hg]Fabby Dao MD Work Phone: [phone] [place], [place] [address]Ehjkbgpmoc38-27-9820 08:03-0500Body mass index (BMI) [Ratio]40.58 kg/w0HowhtsvbCamille Artis [employer] Work Phone: [phone])[facility] [place], [place] [address]Ffgtrtijqy30-44-3869 08:03-0500Body temperature 96.91 [degF]Camille Artis [employer] Work Phone: [phone] [place], [place] [address]Ickcjlrjth53-03-5487 08:03-0500Body .23 kgCamille Artis [employer] Work Phone: [phone])[facility] [place], [place] [address]Xztkjsqzws72-69-0281 08:03-0500Diastolic blood digwduhz43 mm[Hg]Camille Artis [employer] Work Phone: [phone] [place], [place] [address]Rahthnscyi70-83-3360 08:03-0500Heart rate67 /min Camille Artis [employer] Work Phone: [phone] [place] [address]-17-2024 08:03-2440HxX5% (BldA) [Mass fraction]96 %Camille Artis [employer] Work Phone: [facility] CenterVkfscjjhai41-00-6693 08:03-0500Systolic blood zmikuvmm607 mm[Hg]Camille Casanovaisrael [employer] Work Phone: [facility] CenterWyhjvgbgtp07-67-5078 14:44-0500Body xopgub192.6 Daryl Loo [employer] Work Phone: [place] [address]Pttvssoraa36-12-5445 14:44-0500Body mass index (BMI) [Ratio]41.09 kg/q3IfmmvElly Loo [employer] Work Phone: [place] [address]Vlqdwwvles25-40-9493 14:44-0500Body temperature 98.6 [degF]Elly Loo [employer] Work Phone: [facility] CenterLfmsfjdrih74-21-1891 14:44-0500Body zjitzs839.59 kgElly Loo [employer] Work Phone: [facility] CenterIfddmppgbi15-44-3563 14:44-0500Diastolic blood hctpqtda95 mm[Hg]Elly Loo [employer] Work Phone: [place] [address]Zjkcrxpfuq04-23-7655 14:44-0500Heart rate70 /min Elly Loo [employer] Work Phone: [phone] [address]Sbtnfupnsg39-47-3515 14:44-3641TdR4% (BldA) [Mass fraction]99 %Elly Loo [employer] Work Phone: [facility] CenterWmzudrnfvs58-27-4511 14:44-0500Systolic blood bdilynnb533 mm[Hg]Elly Loo [employer] Work Phone: [facility] CenterJaqzjkyvdb41-17-7549 15:01-0400Body mass index (BMI) [Ratio]41.02 kg/k1Aqxum Maine DO Work Phone: [place] [address]Flwrmxzcub50-78-6497 15:01-0400Body wiqirn441.41 kgCorey Maine DO Work Phone: [place] [address]Njpncxlmjs77-26-5882 15:01-0400Diastolic blood qwuamcwl77 mm[Hg]Vel Maine DO Work Phone: noSD Mjlixcvqss31-81-3069 15:01-0400Systolic blood mm[Hg]Vel Maine DO Work Phone: [facility] Encounters Encounter DateEncounter TypeCare ProviderFacilityStart: 06-04-2025 End: 37-27-6640Rquode flowsheetCorey Maine DO Work Phone: no [place] [facility]BGYNStart: 06-04-2025 End: 37-51-3905Ypvaql flowsheetCorey Maine DO Work Phone: [facility] [place] [facility]BGYNStart: 06-04-2025 End: 45-80-8047Txtzwbdio Result EncounterCorey Maine DO Work Phone: [facility] External Department UnsolicitedStart: 06-04-2025 End: 79-94-4881Mowpoyc encounter procedureCorey Maine DO Work Phone: [facility] Work Phone: Start: 06-04-2025 End: 04-34-0603Huixscrw preventive med est patient 40-64yrsCorey Maine DO Work Phone: [facility] [place] OBGYNComment on above:Hormone disorder (Primary Dx); Well woman exam with routine gynecological exam; Encounter for screening mammogram for malignant neoplasm of breastStart: 06-04-2025 End: 99-61-3231ozrvptbrvwAOWTK FAZIONot AvailableStart: 05-22-2025 End: 97-00-6696Smhlie Jahaira Dao MD Work Phone: [facility] MedicineStart: 05-22-2025 End: 13-32-6163Dyhtqqmanjinder Dao MD Work Phone: [facility] MedicineStart: 05-22-2025 End: 09-13-2017Hahevh outpatient visit 25 minutesFabby Dao MD Work Phone: [facility] CenterComment on above:Moderate persistent asthma without complication (HCC) (Primary Dx); Seasonal allergic rhinitis due to pollen; Acute non-recurrent maxillary sinusitis; AnxietyStart: 05-22-2025 End: 71-87-7642rmqohbeaauATMAICGU HOHMANNot AvailableStart: 05-16-2025 End: 30-79-1268NifnkrYflnbzks Hohman MD Work Phone: [facility] CenterComment on above:Moderate persistent asthma with exacerbation (HCC)Start: 04-25-2025 End: 86-16-0629Atmjdw-up encounterFabby Dao MD Work Phone: [facility] CenterComment on above:XR chest 2 viewsStart: 04-24-2025 End: 68-37-4701Yapcss outpatient visit 25 minutesFabby Dao MD Work Phone: [facility] CenterComment on above:Moderate persistent asthma with exacerbation (HCC) (Primary Dx); Asthma, allergic, mild intermittent, uncomplicated (HCC); AnxietyStart: 04-24-2025 End: 89-77-2646xkfzkeccsrDPKDXCGC HOHMANNot AvailableStart: 04-24-2025 End: 91-33-9243Otatqemanjinder Dao MD Work Phone: [facility] MedicineStart: 04-24-2025 End: 18-37-9022Dpzwgkmanjinder Dao MD Work Phone: [facility] MedicineStart: 04-18-2025 End: 24-78-8663WloknhJpvcjslu Hohman MD Work Phone: NOCoastal Communities HospitalComment on above:Asthma, allergic, mild intermittent, uncomplicated (HCC)Start: 04-05-2025 End: 93-83-4652Ptcvib-up encounterJane Bryant MD Work Phone: [facility] RehabilitationComment on above:X-ray spine cervical 3 views or lessStart: 04-05-2025 End: 06-96-1704Ltsvelchf encounterJepadmini Astudillo Cathy CAMARAProMedica Physicians Physical Medicine and RehabilitationStart: 04-02-2025 End: 65-98-4228ztdnsznnzoDVZYGreat [facility] PPGStart: 04-02-2025 End: 21-56-6520Kmpyos outpatient visit 25 minutesEric Shawnee Bryant MD Work Phone: [facility] RehabilitationComment on above:Cervical radiculopathy (Primary Dx); Somatic dysfunction of cervical region; Myalgia; Tendinopathy of left gluteus mediusStart: 04-02-2025 End: 58-09-0865mwmhvglzyzMMHEUC Medical Centertart: 01-20-2025 End: 21-05-6206UsemtxVglmveri Baudilio Artis NP Work Phone: [facility] FNR FMComment on above:Moderate persistent asthma without complication (HCC)Start: 12-07-2024 End: 37-52-0928Danjys flowsheetCorey Maine DO Work Phone: [facility] BCP OBStart: 12-07-2024 End: 95-98-9822Jthlnc flowsheetCorey Maine DO Work Phone: [facility] BCP OBStart: 12-07-2024 End: 84-23-1034Tehcmeemi Result EncounterGeneric External Data ProviderNOMS External Department UnsolicitedStart: 12-07-2024 End: 35-29-8944Uzrpiuf of abnormal cervical Papanicolaou smearCorey Maine DO Work Phone: [facility] Work Phone: Start: 12-07-2024 End: 19-98-4781Wqczax outpatient visit 15 minutesCorey Maine DO Work Phone: [facility] BCP OBComment on above:Encounter for Papanicolaou cervical smear to confirm findings of recent normal smear following initial abnormal smearStart: 12-07-2024 End: 02-56-7764dpsxyaywqdXSZNE FAZIONot AvailableStart: 11-03-2024 End: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 ear discomfort since 03/01/2024. She has been using her inhaler due to breathing issues but has not had a fever. Examination reveals slight nasal swelling, which is expected. Lungs are clear with no wheezing. No antibiotics or steroids are prescribed at this time. She is advised to manage symptoms with [id number] medications suchas Tylenol and Motrin for pain and swelling, and cough medications. If she experiences wheezing, shortness of breath, or a sudden spike in fever, she should contact the office immediately as these could indicate secondary bacterial infections. Assessment/Plan Problem List Items Addressed This Visit None Visit Diagnoses Viral URI - Primary As above. documented in this encounterSaint John's Breech Regional Medical [id number] History of Present illness Narrative* Camille Artis NP - 07/25/2024 8:00 AM EST Images from the original note were not included. Stefanie Bean is a 39 y.o. female presents with chief complaint of Annual Exam HPI: Patient is here for wellness with no other concerns. History of Present Illness The patient presents for a wellness visit. She reports no current health concerns. She has been without her Advair medication for the past 2 months and is seeking a refill. She does not perceive a need for a consultation with Dr. Mcneil as she has already undergone allergy testing. She reports no issues with her asthma unless she is out of her Advair. She recalls that her cholesterol levels were elevated by 10 points during her last evaluation. Her blood pressure typically measures around 110/72. She is not experiencing any ankle edema, chest discomfort, or dyspnea. MEDICATIONS Advair SUBJECTIVE: MEDICATIONS: ALLERGIES Current Outpatient Medications Medication Instructions albuterol HFA 90 mcg/act inhaler 2 puffs, Inhalation, Every 6 hours PRN budesonide (EQ Budesonide Nasal) 32 MCG/ACT nasal spray as directed Nasally cetirizine (ZYRTEC) 10 mg, Daily RT Cholecalciferol (Vitamin D-3) 5000 UNIT/ML liquid Orally escitalopram (LEXAPRO) 10 mg, Oral, Every morning Fluticasone-Salmeterol (Advair Diskus) 250-50 MCG/ACT aerosol powder 1 puff, Inhalation, Every 12 hours Iron, Ferrous Sulfate, 325 (65 Fe) MG tablet metFORMIN (GLUCOPHAGE) 500 mg, Oral, Take with food. Multiple Vitamins-Minerals (MULTIVIT/MULTIMINERAL ADULT PO) Allergies Allergen Reactions Latex Cat Hair Extract Unknown Dog Epithelium (Canis Lupus Familiaris) Unknown Other Reaction(s): Other (See Comments) Dust Mite Extract Unknown Molds & Smuts Unknown Fluticasone Palpitations PAST MEDICAL HISTORY: SOCIAL HISTORY SURGICAL HISTORY: Past Medical History: Diagnosis Date Allergic Allergic rhinitis Anxiety Arthritis Asthma (CMS/HCC) Autoimmune disease (CMS/HCC) Carpal tunnel syndrome Colitis Depression (CMS/HCC) Endometriosis Fibromyalgia GERD (gastroesophageal reflux disease) Headache History of medical problems subchronic hemmorhage, lost at 5 months Hoarseness Neuromuscular disorder (CMS/HCC) Obesity Polycystic ovarian syndrome Urinary tract infection Visual impairment Social History Tobacco Use Smoking status: Never Smokeless tobacco: Never Vaping Use Vaping status: Never Used Substance Use Topics Alcohol use: Yes Alcohol/week: 2.0 standard drinks of alcohol Types: 2 Glasses of wine per week Comment: caffeine: 1-2 cups/day Drug use: Never Past Surgical History: Procedure Laterality Date COLONOSCOPY 2000 DILATION AND CURETTAGE 2004 DILATION AND CURETTAGE 12/23/2015 HYSTERECTOMY 03/18/2023 LAPAROSCOPY DIAGNOSTIC / BIOPSY / ASPIRATION / LYSIS 2000 Diagnostic laparoscopy; chocolate cyst ovary PAP SMEAR 12/12/2019 normal MA REMOVAL OF FALLOPIAN TUBE 03/13/2022 abltation and tubal removal TUBAL LIGATION Removed 03/13/2023 VAGINAL DELIVERY 03/03/2018 , 05/22/2013 WISDOM TOOTH EXTRACTION 2002 teeth REVIEW OF SYMPTOMS: Review of Systems Constitutional: Negative. HENT: Negative. Respiratory: Negative for cough, shortness of breath and wheezing. Cardiovascular: Negative for chest pain. Gastrointestinal: Negative for abdominal pain. Genitourinary: Negative. Musculoskeletal: Negative. Skin: Negative. Neurological: Negative. OBJECTIVE: Vitals: 07/25/24 0803 Temp: 96.9 F Physical Exam Vitals and nursing note reviewed. Constitutional: Appearance: Normal appearance. HENT: Head: Normocephalic and atraumatic. Right Ear: Hearing and tympanic membrane normal. Left Ear: Hearing and tympanic membrane normal. Nose: Nose normal. Right Turbinates: Not enlarged. Left Turbinates: Not enlarged. Right Sinus: No maxillary sinus tenderness or frontal sinus tenderness. Left Sinus: No maxillary sinus tenderness or frontal sinus tenderness. Mouth/Throat: Lips: [place]. Mouth: Mucous membranes are moist. Pharynx: Oropharynx is clear. Uvula midline. Tonsils: No tonsillar exudate. Eyes: General: Lids are normal. Vision grossly intact. Gaze aligned appropriately. Extraocular Movements: Extraocular movements intact. Conjunctiva/sclera: Conjunctivae normal. Neck: Thyroid: No thyroid mass or thyromegaly. Vascular: No carotid bruit. Trachea: Trachea normal. Cardiovascular: Rate and Rhythm: Normal rate and regular rhythm. Pulses: Normal pulses. Heart sounds: Normal heart sounds. Pulmonary: Effort: Pulmonary effort is normal. Breath sounds: Normal breath sounds and air entry. Abdominal: General: Abdomen is flat. Bowel sounds are normal. Palpations: Abdomen is soft. Musculoskeletal: Cervical back: Full passive range of motion without pain, normal range of motion and neck supple. Lymphadenopathy: Cervical: No cervical adenopathy. Skin: General: Skin is warm. Capillary Refill: Capillary refill takes less than 2 seconds. Neurological: Mental Status: She is alert and oriented to person, place, and time. Sensory: Sensation is intact. Motor: Motor function is intact. Coordination: Coordination is intact. Psychiatric: Attention and Perception: Attention and perception normal. Mood and Affect: Mood and affect normal. Speech: Speech normal. Behavior: Behavior is cooperative. Thought Content: Thought content normal. ASSESSMENT AND PLAN: Assessment/Plan Diagnoses and all orders for this visit: Asthma, allergic, mild intermittent, uncomplicated (CMS/HCC) - Fluticasone-Salmeterol (Advair Diskus) 250-50 MCG/ACT aerosol powder ; Inhale 1 puff every 12 (twelve) hours Stable on advair. Morbid (severe) obesity due to excess calories (CMS/HCC) - Lipid panel; Future - Comprehensive metabolic panel; Future Check labs to r/o underlying cause. Reviewed BMI with patient today. Encouraged weight reduction. Discussed healthy eating habits. Limit caloric intake <1500kcal/day. Reviewed different diet options with patient including low calorie, reduced carbohydrate. Advised to investigate Weight Watchers as a possible diet plan. Recommended journaling food intake and exercise performance either using a simple paper/calendar system or downloading the [employer] Plan application to track calorie consumption, food intake, exercise performance. Recommended starting with at least 150 minutes of exercise weekly and increase to a goal of 60 minutes per day. Discussed barriers to following treatment plan. Will consider medication options if lifestyle modifications fail. PCOS (polycystic ovarian syndrome) - Hemoglobin A1c; Future Recurrent major depressive disorder, in partial remission (HCC) (CMS/HCC) Stable. Chronic rhinitis Seasonal allergic rhinitis, unspecified trigger Anxiety Moderate persistent asthma without complication (CMS/HCC) Encounter for well adult exam without abnormal findings Wellness performed at today. Height, weight, BMI, problem list, and immunizations records reviewed. Dental care discussed with patient. Encouraged annual vision screenings and semi-annual dental care. Encouraged healthy eating habits, limit or eliminate junk food and sources of excess calories. Encouraged regular periods of exercise, 150 minutes of exercise weekly or amount appropriate to current level of function. Discussed family/friend/social support and importance of maintaining emotional connections. Follow up annually and as needed. No follow-ups on file. documented in this encounterSaint John's Breech Regional Medical [id number] History of Present illness Narrative* Elly Loo NP - 07/03/2024 3:00 PM EST Images from the original note were not included. Stefanie Bean is a 39 y.o. female presents with chief complaint of URI HPI: HPI History of Present Illness The patient presents for evaluation of sinus issues. She has been experiencing sinus discomfort for the past few weeks, accompanied by intermittent sneezing and nasal congestion. She reports no fever. She has not been using any mpcj-[id number] medications but occasionally uses Benadryl. She is currently using budesonide and alternates between Zyrtecand Viri. She is unable to use Flonase as it induces heart palpitations. She has tried various inhalers in the past, including Dulera and Flovent, but found them ineffective. She also reports that the generic version of Advair does not provide relief. She is currently notusing her inhaler due to its high cost and is attempting to regain Medicaid coverage. She experienced dizzy spells yesterday and believes her blood pressure may be slightly lower today. SUBJECTIVE: MEDICATIONS: Current Outpatient Medications Medication Instructions albuterol HFA 90 mcg/act inhaler 2 puffs, Inhalation, Every 6 hours PRN budesonide (EQ Budesonide Nasal) 32 MCG/ACT nasal spray as directed Nasally cetirizine (ZYRTEC) 10 mg, Daily RT Cholecalciferol (Vitamin D-3) 5000 UNIT/ML liquid Orally escitalopram (LEXAPRO) 10 mg, Oral, Every morning fluconazole (Diflucan) 150 MG tablet Once; may repeat in 72 hours if no improvement Fluticasone-Salmeterol (Advair Diskus) 250-50 MCG/ACT aerosol powder 1 puff, Inhalation, Every 12 hours Gabapentin 25 MG tablet Compound cream Iron, Ferrous Sulfate, 325 (65 Fe) MG tablet metFORMIN (GLUCOPHAGE) 500 mg, Oral, Take with food. Multiple Vitamins-Minerals (MULTIVIT/MULTIMINERAL ADULT PO) REVIEW OF SYMPTOMS: Review of Systems HENT: Positive for congestion and sinus pressure. All other systems reviewed and are negative. OBJECTIVE: Visit Vitals BP 110/54 (BP Location: Left arm, Patient Position: Sitting, BP Cuff Size: Large adult) Pulse 70 Temp 98.6 F (Tympanic) Ht 5' 4 Wt 239 lb 6.4 oz LMP (LMP Unknown) SpO2 99% BMI 41.09 kg/m OB Status Hysterectomy Smoking Status Never BSA 2.22 m Physical Exam Vitals reviewed. Constitutional: Appearance: She is obese. HENT: Head: Normocephalic and atraumatic. Right Ear: Tympanic membrane normal. Left Ear: Tympanic membrane normal. Nose: Mucosal edema, congestion and rhinorrhea present. Rhinorrhea is clear. Mouth/Throat: Mouth: Mucous membranes are moist. Pharynx: Postnasal drip present. Eyes: Pupils: Pupils are equal, round, and reactive to light. Cardiovascular: Rate and Rhythm: Normal rate and regular rhythm. Pulses: Normal pulses. Heart sounds: Normal heart sounds. Pulmonary: Effort: Pulmonary effort is normal. Breath sounds: Normal breath sounds. Musculoskeletal: Cervical back: Normal range of motion and neck supple. Skin: General: Skin is warm and dry. Capillary Refill: Capillary refill takes less than 2 seconds. Findings: No rash. Neurological: General: No focal deficit present. Mental Status: She is alert and oriented to person, place, and time. ASSESSMENT AND PLAN: Assessment/Plan Diagnoses and all orders for this visit: Seasonal allergic rhinitis, unspecified trigger - predniSONE (Deltasone) 10 MG tablet; Take 1 tablet (10 mg) by mouth in the morning and 1 tablet (10 mg) before bedtime. Do all this for 5 days. -Will give her a few days of steroids to help with acute flare. Continue oral antihistamine and nasal corticosteroid. Encouraged to flush nasal passages with saline nasal rinse at least BID to help remove irritants. Moderate persistent asthma without complication ([facility]) -Instructed to call insurance to find out what inhaler is on her formulary and call office with update. documented in this encounterSaint John's Breech Regional Medical [id number] Telephone encounter Note* Telephone Encounter - John Araujo - 05/29/2024 4:42 PM EDT Needs signed Sleep Study faxed to [employer]. *They left voicemail that a few request have been sent w no signed study sent . [facility] [id number] Miscellaneous Notes* Telephone Encounter - John Gayle - 05/29/2024 4:42 PM EDT Needs signed Sleep Study faxed to [employer]. *They left voicemail that a few request have been sent w no signed study sent . documented in this encounterSaint John's Breech Regional Medical [id number] History of Present illness Narrative* Feli Simons, DENZEL - 05/29/2024 3:00 PM EDT Reason for Appointment: Patient ID: Stefanie Bean is a 38 y.o. female who presents for Well Women Visit Patient presents today for Annual Exam. MEDICATIONS Current Outpatient Medications Medication Instructions albuterol HFA 90 mcg/act inhaler 2 puffs, Inhalation, Every 6 hours PRN budesonide (EQ Budesonide Nasal) 32 MCG/ACT nasal spray as directed Nasally cetirizine (ZYRTEC) 10 mg, Oral, Daily RT Cholecalciferol (Vitamin D-3) 5000 UNIT/ML liquid Orally escitalopram (LEXAPRO) 10 mg, Oral, Every morning fluconazole (Diflucan) 150 MG tablet Once; may repeat in 72 hours if no improvement Fluticasone-Salmeterol (Advair Diskus) 250-50 MCG/ACT aerosol powder 1 puff, Inhalation, Every 12 hours Gabapentin 25 MG tablet Compound cream ipratropium (Atrovent) 0.06 % nasal spray USE 2 SPRAYS IN EACH NOSTRIL 3 TIMES A DAY Iron, Ferrous Sulfate, 325 (65 Fe) MG tablet meloxicam (MOBIC) 15 mg, Oral, Daily RT metFORMIN (GLUCOPHAGE) 500 mg, Oral, Take with food. Multiple Vitamins-Minerals (MULTIVIT/MULTIMINERAL ADULT PO) ALLERGIES Allergies Allergen Reactions Latex Cat Hair Extract Unknown Dog Epithelium (Canis Lupus Familiaris) Unknown Other Reaction(s): Other (See Comments) Dust Mite Extract Unknown Molds & Smuts Unknown Fluticasone Palpitations PROBLEMS Active Ambulatory Problems Diagnosis Date Noted Allergic rhinitis due to pollen 02/25/2023 Chronic rhinitis 02/25/2023 Seasonal allergic rhinitis 04/09/2021 Anxiety 06/12/2016 Asthma in adult ([facility]) 02/25/2023 Cervical spinal stenosis 02/25/2023 Cervical spondylosis without myelopathy 07/23/2022 Fibromyalgia 02/02/2017 Neck pain 02/25/2023 Hemorrhage 01/21/2016 Hoarseness 02/25/2023 Moderate persistent asthma without complication ([facility] [facility] 11/28/2019 Morbid (severe) obesity due to excess calories ([facility]) 02/25/2023 Palpitations 02/13/2019 PCOS (polycystic ovarian syndrome) 02/25/2023 Recurrent major depressive disorder, in partial remission (HCC) ([facility]) 02/02/2017 Yeast infection 02/25/2023 Resolved Ambulatory Problems Diagnosis Date Noted No Resolved Ambulatory Problems Past Medical History: Diagnosis Date Allergic Allergic rhinitis Arthritis Asthma ([facility] Autoimmune disease ([facility]) Carpal tunnel syndrome Colitis Depression ([facility]) Endometriosis GERD (gastroesophageal reflux disease) Headache History of medical problems Neuromuscular disorder ([facility] Obesity Polycystic ovarian syndrome Urinary tract infection Visual impairment HISTORY PAST MEDICAL HISTORY SOCIAL HISTORY Past Medical History: Diagnosis Date Allergic Allergic rhinitis Anxiety Arthritis Asthma ([facility]) Autoimmune disease ([facility]) Carpal tunnel syndrome Colitis Depression ([facility]) Endometriosis Fibromyalgia GERD (gastroesophageal reflux disease) Headache History of medical problems subchronic hemmorhage, lost at 5 months Hoarseness Neuromuscular disorder ([facility]) Obesity Polycystic ovarian syndrome Urinary tract infection [...] illness Mother Felecia Sloan Arthritis Mother Felecia Luther Asthma Mother Felecia Luther Depression Mother Felecia Luther Miscarriages / Stillbirths Mother Felecia Luther Arthritis Father Jace Cheek Depression Father Jace Cheek Other (thyroid issues) Other both sides of family Diabetes Other both sides of family Polycystic kidney disease Other aunt Cancer Other uterine and ovarian: great aunts Arthritis Sister Katherin Noftz Asthma Sister Katherin Nolauryn Depression Sister Katherin Noftz Asthma Brother Benito Adams Miscarriages / Stillbirths Mother's Sister Farhan Sandoval SURGICAL HISTORY Past Surgical History: Procedure Laterality Date COLONOSCOPY 2000 DILATION AND CURETTAGE 2004 DILATION AND CURETTAGE 12/23/2015 HYSTERECTOMY 03/18/2023 LAPAROSCOPY DIAGNOSTIC / BIOPSY / ASPIRATION / LYSIS 2000 Diagnostic laparoscopy; chocolate cyst ovary PAP SMEAR 12/12/2019 normal MA REMOVAL OF FALLOPIAN TUBE 03/13/2022 abltation and tubal removal TUBAL LIGATION Removed 03/13/2023 VAGINAL DELIVERY 03/03/2018 , 05/22/2013 WISDOM TOOTH EXTRACTION 2001 teeth REVIEW OF SYSTEMS Review of Systems: Review of Systems All other systems reviewed and are negative. OBJECTIVE Objective: Physical Exam Constitutional: Appearance: Normal [...] nursing note reviewed. Exam conducted with a comb setter present. Vitals: Estimated body mass index is 41.02 kg/m as calculated from the following: Height as of 05/25/24: 5' 4 . Weight as of this encounter: 239 lb. BP: 110/66 No LMP recorded (lmp unknown). Patient has had a hysterectomy. ASSESSMENT & PLAN ICD-10-CM 1. Well woman exam with routine gynecological exam Z01.419 THIN PREP TIS PAP AND HR HPV DNA Annual Exam: Patient presents today for an annual exam. Patient states she is doing well and has no complaints. Pap was obtained without difficulty. No orders of the defined types were placed in this encounter. Follow Up: Patient is to return in one year for annual unless needed otherwise. Documented by Feli Simons LPN on behalf of: Vel Grove DO documented in this encounterSaint [facility] [id number] NotePROCEDURE: XR SHOULDER LT 2V or > HISTORY: Pain of left shoulder joint ; acute cervical pain COMPARISON: None. FINDINGS: BONES:No fracture, acute abnormality, or significant arthropathy. SOFT TISSUES:No visible soft tissue swelling. EFFUSION:None visible. OTHER: Negative. IMPRESSION: 1. No acute bone abnormality or significant degenerative changes. Electronically authenticated by: CHITO MADRIDLASHELL Date: 2022-05-04 10:36[facility]08-05-2022 NoteOPERATIVE NOTE OPERATION DATE: 03/13/2022 PROCEDURE: Nika endometrial ablation as well as bilateral laparoscopic salpingectomy. PREOPERATIVE DIAGNOSIS: Menorrhagia, dysmenorrhea, dyspareunia, desires permanent sterilization, multiparity. POSTOPERATIVE DIAGNOSIS: Menorrhagia, dysmenorrhea, dyspareunia, desires permanent sterilization, multiparity. ANESTHESIA: General. SURGEON: Vel Grove D.O. ADVERTISING DISPLAY ROTATOR: MARCELLE Peña URINE OUTPUT: Yellow and clear. BLOOD LOSS: 10 mL. FINDINGS: Normal appearing ovaries, uterus and tubes. Normal appearing cavity. No gross evidence of polyps, fibroids, malignancy. SPECIMEN: Bilateral tubes. PROCEDURE: The patient was taken back to the OR where she was prepped and draped in the normal sterile fashion after being placed in the dorsal lithotomy position, after being placed under general anesthesia without difficulty. a weighted speculum was then placed into the vagina. The anterior lip was grasped with a single tooth tenaculum. The patient was then sounded to approximately 9 cm. The patient was gently sounded using Hegar dilators and the hysteroscope was passed through the cervix into the uterus where both ostia were seen. No gross evidence of polyps, fibroids or malignancy. The cervical length was noted to be 4 cm. The Nika ablation apparatus was set to approximately 5 cm in length. This was placed in through the cervix and into the uterus. After the seal was tested, at that time the total ablation of 120 seconds was performed with the Nika without difficulty. All instruments were removed from the vagina. A wet sponge stick was placed into the patient's vagina. Attention was then turned to the patient's abdomen, where a scalpel was used to make a small infraumbilical incision. The S retractors were then used to dissect the underlying layers until the fascia could be seen. The fascia was then grasped with Bozena clamps and tented up. A knife was then used to make a small incision to the fascia. The muscle was identified, at that time two sutures of #0 Vicryl on a GI needle was then used and placed through the fascia. The peritoneum was then identified and entered bluntly. The 10-4 Apoorva was then placed into the patient's abdomen. This was confirmed with direct visualization of the bowel, using the laparoscope. The patient's abdomen was then insufflated using approximately 4 liters of CO2 gas. Survey of the patient's abdomen demonstrated normal appearing ovaries, uterus and tubes. A second and third lateral ports, which was 7-8 in size and 5 mm in size, was then placed laterally after incision was made in the skin under direct visualization. The patient's tube on the patient's right side was identified. The tube was then tented up using a grasper. The LigaSure was used to transect and coagulate the mesosalpinx from the fimbriated end to the insertion at the uterus, the tube was amputated and removed in its entirety. Excellent hemostasis was noted. This was performed on the contralateral side as well. The lateral ports were then moved under direct visualization with excellent hemostasis. The abdomen was desufflated. All instruments were removed from the patient's abdomen. The fascia was closed using the #0 Vicryl on GI needle. The skin was closed using 4- 0 Vicryl subcuticularly. All instruments were removed from the patient's vagina as well. The patient was taken out of the dorsal lithotomy position and placed in the supine position and taken to recovery in stable condition. Sponge, lap and needle counts were correct x2. Omental adhesions were removed from the anterior abdominal wall using the LigaSure. ?[facility] Diagnosis PCOS (polycystic ovarian syndrome) Polycystic ovaries documented in this encounter [facility]* Diagnosis Gastritis without bleeding, unspecified chronicity, unspecified gastritis type- Primary Recurrent major depressive disorder, in partial remission (HCC) (CMS/HCC) Mild intermittent asthma in adult without complication (CMS/HCC) Well woman exam with routine gynecological exam Routine gynecological examination documented in this encounter [facility]* Diagnosis Gastritis without bleeding, unspecified chronicity, unspecified gastritis type- Primary Recurrent major depressive disorder, in partial remission (HCC) ([facility]) Mild intermittent asthma in adult without complication ([facility]) Seasonal allergic rhinitis, unspecified trigger- Primary Moderate persistent asthma without complication ([facility]) documented in this encounter [facility] Healthcare[facility]* Diagnosis Gastritis without bleeding, unspecified chronicity, unspecified gastritis type- Primary Recurrent major depressive disorder, in partial remission (HCC) ([facility]) Mild intermittent asthma in adult without complication ([facility]) Asthma, allergic, mild intermittent, uncomplicated ([facility])- Primary Morbid (severe) obesity due to excess calories ([facility]) PCOS (polycystic ovarian syndrome) Polycystic ovaries Recurrent major depressive disorder, in partial remission (HCC) ([facility]) Chronic rhinitis Seasonal allergic rhinitis, unspecified trigger Anxiety Anxiety state, unspecified Moderate persistent asthma without complication ([facility]) Encounter for well adult exam without abnormal findings documented in this encounter [facility] HealthcareEvaluation [facility]* Diagnosis Gastritis without bleeding, unspecified chronicity, unspecified gastritis type- Primary Recurrent major depressive disorder, in partial remission (HCC) ([facility]) Mild intermittent asthma in adult without complication ([facility]) Viral URI- Primary Acute upper respiratory infections of unspecified site documented in this encounter [facility] HealthcareEvaluation note* Diagnosis Herniated cervical disc Displacement of cervical intervertebral disc without myelopathy [facility] Diagnosis Herniated cervical disc Displacement of cervical intervertebral disc without myelopathy [facility] Diagnosis Gastritis without bleeding, unspecified chronicity, unspecified gastritis type- Primary Recurrent major depressive disorder, in partial remission (HCC) ([facility]) Mild intermittent asthma in adult without complication ([facility]) Recurrent major depressive disorder, in partial remission (HCC) ([facility])- Primary documented in this encounter [facility]* Diagnosis Gastritis without bleeding, unspecified chronicity, unspecified gastritis type- Primary Recurrent major depressive disorder, in partial remission (HCC) ([facility]) Mild intermittent asthma in adult without complication ([facility]) Encounter for Papanicolaou cervical smear to confirm findings of recent normal smear following initial abnormal smear documented in this encounter [facility]* Diagnosis Gastritis without bleeding, unspecified chronicity, unspecified gastritis type- Primary Recurrent major depressive disorder, in partial remission Mild intermittent asthma in adult without complication (HCC) Moderate persistent asthma without complication (HCC) documented in [facility] encounter [facility]* Diagnosis Cervical radiculopathy- Primary Brachial neuritis or radiculitis nos Somatic dysfunction of cervical region Nonallopathic lesion of cervical region, not elsewhere classified Myalgia Unspecified myalgia and myositis Tendinopathy of left gluteus medius documented in [facility] encounter [facility]* Diagnosis Cervical radiculopathy- Primary Brachial neuritis or radiculitis nos documented in this encounter [facility]* Diagnosis Gastritis without bleeding, unspecified chronicity, unspecified gastritis type- Primary Recurrent major depressive disorder, in partial remission Mild intermittent asthma in adult without complication (HCC) Asthma, allergic, mild intermittent, uncomplicated (HCC) documented [facility] encounter [facility]* Diagnosis Gastritis without bleeding, unspecified chronicity, unspecified gastritis type- Primary Recurrent major depressive disorder, in partial remission Mild intermittent asthma in adult without complication (HCC) Moderate persistent asthma with exacerbation (HCC)- Primary Unspecified asthma, with exacerbation Asthma, allergic, mild intermittent, uncomplicated (HCC) Anxiety Anxiety state, unspecified documented in [facility] encounter [facility]* Diagnosis Gastritis without bleeding, unspecified chronicity, unspecified gastritis type- Primary Recurrent major depressive disorder, in partial remission Mild intermittent asthma in adult without complication (HCC) Moderate persistent asthma with exacerbation (HCC) Unspecified asthma, with exacerbation documented in this encounter [facility]* Diagnosis Gastritis without bleeding, unspecified chronicity, unspecified gastritis type- Primary Recurrent major depressive disorder, in partial remission Mild intermittent asthma in adult without complication (HCC) Moderate persistent asthma without complication (HCC)- Primary Seasonal allergic rhinitis due to pollen Acute non-recurrent maxillary sinusitis Anxiety Anxiety state, unspecified documented in [facility] encounter [facility]* Diagnosis Gastritis without bleeding, unspecified chronicity, unspecified gastritis type- Primary Recurrent major depressive disorder, in partial remission Mild intermittent asthma in adult without complication (HCC) Moderate persistent asthma without complication (HCC)- Primary Seasonal allergic rhinitis due to pollen Acute non-recurrent maxillary sinusitis Anxiety Anxiety state, unspecified Hormone disorder- Primary Unspecified endocrine disorder Well woman exam with routine gynecological exam Routine gynecological examination Encounter for screening mammogram for malignant neoplasm of breast documented [facility] encounter [facility]* Diagnosis Cervical radiculopathy- Primary Brachial neuritis or radiculitis nos [facility]* MARIBEL Sevilla - 06/04/2025 2:00 PM EDT [...] Morbid (severe) obesity due to excess calories ([facility]) 02/25/2023 PCOS (polycystic ovarian syndrome) 02/25/2023 Recurrent [...] Asthma Sister Katherin Fox Depression Sister Katherin Fox Asthma Brother Benito Adams Miscarriages / Stillbirths Mother's Sister Farhan Sandoval SURGICAL HISTORY Past Surgical History: Procedure Laterality Date COLONOSCOPY 2000 DILATION AND CURETTAGE 2004 DILATION AND CURETTAGE 12/23/2015 HYSTERECTOMY 03/18/2023 LAPAROSCOPY DIAGNOSTIC / BIOPSY / ASPIRATION / LYSIS 2000 Diagnostic laparoscopy; chocolate cyst ovary PAP SMEAR 12/12/2019 normal MA REMOVAL OF FALLOPIAN TUBE 03/13/2022 abltation and [...] nursing note reviewed. Exam conducted with a comb setter present. Vitals: Estimated body mass index is 39.61 kg/m as calculated from the following: Height as [...] them. Patient can also view results via [employer]. I reinforced importance of condom use for [...] of: Vel Grove DO documented in this encounterNOTexas County Memorial HospitalInstructionsNot on filedocumented in this encounterProC[facility] SystemInstructionsNot on filedocumented in this encounterMet[facility] SystemInstructionsNot on filedocumented in this encounterMet[facility] SystemInstructionsNot on filedocumented in this encounterMet[facility] Summary Purpose Family History No Family History Records FoundNo Family History Records FoundNo Family History Records FoundNo Family History Records FoundNo Family History Records FoundNo Family History Records Found Advance Directives No Advanced Directives Records FoundNo Advanced Directives Records FoundNo Advanced Directives Records FoundNo Advanced Directives Records FoundNo Advanced Directives Records FoundNo Advanced Directives Records Found Additional Source Comments INFORMATION SOURCE (unrecogn ized section and content) DATE CREATED AUTHOR 07/18/2021 [facility] DATE CREATED AUTHOR AUTHOR'S ORGANIZ ATION 08/01/2022 [facility] DATE CREATED AUTHOR AUTHOR'S ORGANIZ ATION 04/03/2023 [facility] DATE CREATED AUTHOR AUTHOR'S ORGANIZ ATION 04/03/2025 [facility] DATE CREATED AUTHOR AUTHOR'S ORGANIZ ATION 04/05/2025 [facility] DATE CREATED AUTHOR AUTHOR'S ORGANIZ ATION 06/05/2025 [facility] EPIC Reason for Visit (unrecogniz ed section and content) ReasonCommentsMed RefillReasonCommentsWell Women VisitReasonCommentsURIReason CommentsAnnual ExamReasonCommentsAnxietyReasonCommentsAbnormal Pap SmearReason CommentsNeck PainPreviously established patient presenting for follow-up evaluation of chronic neck pains. Previously evaluated 07/14/23, with trigger point injections to bilateral cervical paraspinals and bilateral trapezius performed. Endorsing increased and primarily left-sided neck and head pains. Denies any new injuries. Reports obtaining significant relief from previous trigger point injections. Wishes to discuss repeat injections. Most recent imaging in form of 2021 MR cervical spine. Consistent w/ HEP for neck.Prior care(cervical spine)Previous Evaluation and TreatmentDiagnostics: MRIMedications tried: OTCHome Exercise Program: Guided by physician, daily for neck range of motion and strengtehing over previous yearPhysical Therapy: Within 6 monthsChiropractic Care: noPain Management: Injections and MedicationsPrior Surgery: NonePain Score: 10ReasonOnset DateCommentsMed [id number]/18/2025Reason CommentsAsthmaReasonCommentsMed Change RequestReasonCommentsFollow-up Care Teams (unrecognized sec tion and content) Team MemberRelationshipSpecialtyStart End Fabby Dao MD [address] [place] [address] PCP - GeneralFamily Medicine02/11/23Te MemberRelationshipSpecialtyStart DateEnd Fabby Dao MD [address] [place] [address] PCP - GeneralFamily Medicine02/11/23Team MemberRelationshipSpecialtyStart DateEnd Fabby Doa MD [address] [place] [address] PCP - GeneralFamily Medicine02/11/23Te MemberRelationshipSpecialtyStart DateEnd Date Fabby Dao MD [address] [place] [address] PCP - Generalmily Medicine02/11/23Team MemberRelationshipSpecialtyStart DateEnd Date Fabby Dao MD [address] [place] [address] [facility] - [facility]/11/23 Fabby Dao MD [address] [place] [address] PCP - [facility] [employer]12/08/2411Team MemberRelationshipSpecialty Start DateEnd Date Fabby Dao MD [address] [place] [address] PCP - [facility] Medicine02/11/23 Fabby Dao MD [address] [place] [address] PCP - [facility] [employer]12/08/2411Team MemberRelationshipSpecialty Start DateEnd Date Fabby Dao MD [address] [place] [address] [facility] - [facility]02/11/23 Fabby Dao MD [address] [place] [address] PCP - [facility] [employer]12/08/2411Team MemberRelationshipSpecialty Start DateEnd Date Fabby Dao MD [address] [place] [address] PCP - [facility] Medicine02/11/23 Fabby Dao MD [address] [place] [address] PCP - [facility] [employer]12/08/2411Team MemberRelationshipSpecialty Start DateEnd Date Fabby Dao MD [address] [place] [address] [facility] - [facility]02/11/23 Fabby Dao MD [address] [place] [address] PCP - [facility] [employer]12/08/2411Team MemberRelationshipSpecialty Start DateEnd Date Fabby Dao MD [address] [place] [address] PCP - [facility] Medicine02/11/23 Fabby Dao MD [address] [place] [address] PCP - [facility] [employer]12/08/2411Team MemberRelationshipSpecialty Start DateEnd Date Fabby Dao MD [address] [place] [address] PCP - [facility] Medicine01/05/19Te MemberRelationshipSpecialtyStart DateEnd Date Fabby Dao MD [address] [place] [address] [facility]01/05/19Team MemberRelationshipSpecialtyStart DateEnd Date Fabby Dao MD [address] [place] [address] PCP - GeneralFamily Medicine02/11/23 Fabby Dao MD [address] [place] [address] PCP - [facility] [employer]12/08/2411Te MemberRelationshipSpecialty Start DateEnd Date Fabby Dao MD [address] [place] [address] PCP - Generalmily Medicine02/11/23 Fabby Dao MD [address] [place] [address] PCP - [facility] [employer]12/08/2411Team MemberRelationshipSpecialty Start DateEnd Date Fabby Dao MD [address] [place] [address] PCP - Generalmi Medicine02/11/23 Fabby Dao MD [address] [place] [address] PCP - [facility] [employer]12/08/2411Team MemberRelationshipSpecialty Start DateEnd Date Fabby Dao MD [address] [place] [address] [facility] - [facility]01/05/19Te MemberRelationshipSpecialtyStart DateEnd Date Fabby Dao MD [address] [place] [address] PCP - GeneralFamily Medicine01/05/19Team MemberRelationshipSpecialtyStart DateEnd Date Fabby Dao MD [address] [place] [address] PCP - GeneralFamily Medicine02/11/23Team MemberRelationshipSpecialtyStart DateEnd Date Fabby Dao MD [address] [place] [address] PCP - GeneralFamily Medicine02/11/23Team MemberRelationshipSpecialtyStart DateEnd Date Fabby Dao MD [address] [place] [address] PCP - GeneralFamily Medicine02/11/23Team MemberRelationshipSpecialtyStart DateEnd Date Fabby Dao MD [address] [place] [address] PCP - GeneralFamily Medicine02/11/23Team MemberRelationshipSpecialtyStart DateEnd Date Fabby Dao MD [address] [place] [address] PCP - GeneralFamily Medicine02/11/23Team MemberRelationshipSpecialtyStart DateEnd Date Fabby Dao MD [address] [place] [address] PCP - GeneralFamily Medicine02/11/23Team MemberRelationshipSpecialtyStart DateEnd Date Fabby Dao MD [address] [place] [address] PCP - GeneralFamily Medicine01/05/19Team MemberRelationshipSpecialtyStart DateEnd Date Fabby Dao MD [address] [facility] [place] [phone] PCP - GeneralFamily Medicine02/11/23 FOR RECORDS PERTAINING TO PATIENTS WHO ARE OR HAVE BEEN ENROLLED IN A CHEMICAL DEPENDENCY/SUBSTANCEABUSE PROGRAM, SOME INFORMATION MAY BE OMITTED. This clinical summary was aggregated from multiple sources. Caution should be exercised in using it in the provision of clinical care. This summary normalizes information from multiple sources, and as a consequence, information in this document may materially change the coding, format and clinical context of patient data. In addition, data may be omitted in some cases. CLINICAL DECISIONS SHOULD BE BASED ON THE PRIMARY CLINICAL RECORDS. [facility] [employer] [facility]. provides no warranty or guarantee of the accuracy or completeness of information in this document.
[2025-06-22 14:23] LABS: Free T3 2.35 pg/mL (2.18-3.98); Thyroid Stimulating Hormone 1.832 uIU/mL (0.358-3.740)
[2025-06-22 14:37] LABS: Ferritin 96.0 ng/mL (8.0-252.0)
[2025-06-23 04:07] LABS: Sex Horm Binding Glob, Serum 71.7 nmol/L (24.6-122.0)
[2025-06-24 16:12] LABS: Calcitriol(1,25 di-OH Vit D) 30.7 pg/mL (24.8-81.5)
== END 2025-06-22 13:27 | disposition home or self-care (01) ==
LOC: LAB 13:27
PROVIDERS: PCP Family Medicine; Visit Provider Physician Assistant
DX: E34.9 Endocrine disorder, unspecified (principal)
CPT/HCPCS: 36415; 82627; 82652; 82670; 82679; 82728; 83036; 84144; 84270; 84402; 84403; 84439; 84443; 84481; 84482; 86376

== ENCOUNTER 2025-07-30 08:43 | Outpatient (OUT) | payer OTHER, SELFPAY ==
--- NOTE | 2025-07-30 08:46 | MR_ITS ---
[address] [address] Patient Name: JONNATHAN TATE MRN: [id number] date: 1985 Sex: F Assigned Patient Location: MRI Current Patient Location: MRI Accession/Order Number: [id number] Exam Date: 07/30/2025 08:50 Report Date: 07/30/2025 11:20 At the request of: NON-STAFF PHYSICIAN Procedure: MR cervical spine wo con EXAMINATION: MRI OF THE CERVICAL SPINE WITHOUT CONTRAST CLINICAL DATA: Cervical Radiculopathy Comparison 06/23/2022 FINDINGS: Craniocervical junction is maintained. Straightening and slight reversal normal cervical lordosis. Otherwise cervical vertebral heights are preserved. Mild disc space narrowing C5-C7. Cervical cord demonstrates normal signal and morphology. Prevertebral paraspinal soft tissues unremarkable. C2-C5: No significant disc disease, central canal or neural foraminal narrowing identified. C5-6: Broad-based disc osteophyte complex with minimal uncovertebral spurring. Mild canal and minimal foraminal narrowing greatest the right C6-7: Circumferential disc osteophyte complex with predominantly left greater than right uncovertebral spurring. Mild right-sided neural foraminal narrowing there is at least moderate left-sided neural foraminal narrowing. C7-T1: Mild facet arthropathy. No significant disc disease, central canal or neural foraminal narrowing identified. MR/MR cervical spine wo con IMPRESSION: Utpi-nk-mpacbzbd degenerative changes C5-C7. Findings mildly progressed at C6-C7 on left. Impression dictated by: Jb Hilton M.D. 07/30/2025 11:20 AM Dictation Location: [place] [address] Electronically authenticated by: [id number] Y Date: 07/30/2025 11:20
--- OUTSIDE RECORDS SUMMARY | 2025-07-30 08:46 | XMS_ITS | Encounter Summary ---
Author Organization [facility] Address [address] [place] [address] Care Team Providers Care Zigzag Tunnel Elastic Operator Name Role Phone Fabby James MD Primary Care Provider [phone] Encounter Details DateTypeDepartmentCare Team (Latest Contact Info)Xmnjbugefzb43/16/2025Telephone [facility] [address] [place] [address] Vel Grove DO [address] [place], [place] [id number] Social History Tobacco UseTypesPacks/DayYears UsedDateSmoking Tobacco: NeverSmokeless Tobacco: NeverAlcohol UseStandard Drinks/WeekCommentsYes2 (1 standard drink = 0.6 oz pure alcohol)caffeine: 1-2 cups/[id number] Health LiteracyAnswerDate RecordedHow often do you need [...] a week 07/03/2024How often do you attend mormon or gnosticism services?1 to 4 times per year07/03/2024o you belong to any clubs or organizations such as mormon groups, unions, fraternal or athletic groups, or school groups?No07/03/2024How often do you attend meetings of the clubs or organizations you belong to?Never07/03/2024 Are you , , , , never , or living with a partner?Uqiqrmzbh02/25/2024UDIT-CAnswerDate RecordedQ1: How often do you have a [...] and heating?Hard 07/03/2024HQ-2AnswerDate RecordedPatient Health Questionnaire-2 Score3 11/03/2024[facility] [place] [facility] - Occupational Stress QuestionnaireAnswerDate [...] steady place to sleep or [facility] (including now)?No02/24/2023Housing Stability Vital SignAnswerDate RecordedIn the last 12 months, was there a time when you were not able to pay the mortgage or rent on time?No07/03/2024In the past 12 months, how many times have you moved where you were living?t any time in the past 12 months, were you homeless or living in a senior care (including now)?No 07/03/2024CommentsNoSex and Gender InformationValueDate RecordedSex Assigned at BirthNot on fileLegal YebJzsuud46/15/2023 6:44 PM EDTGender Identity Not on fileSexual OrientationNot on filedocumented as of this encounter Miscellaneous Notes * Telephone Encounter - Margaux Smallwood LPN - 07/24/2025 10:27 AM EST Patient called the office and she was asking about her labs and pap that she had done and what thisshowed as she never got a call. Patient was advised of pap results and that this will be followed yearly and that labs were all WNL. Patient then did ask if she could get something for yeast infection. Script sent at this time. documented in this encounter Plan of Treatment DateTypeDepartmentCare Team (Latest Contact Info)Ffgyibmbebl11/03/2026 8:30 AM ESTProcedure Visit [facility] [address] [place] [address] Vel Grove, [address] [place] [address] documented as of this encounter Visit Diagnoses Diagnosis Yeast infection documented in this encounter Additional Health Concerns AssessmentNoted TimePHQ-9 Depression Total Score: 16011/03/2024 3:00 PM EDT documented as of this encounter Care Teams Team MemberRelationshipSpecialtyStart DateEnd Date Fabby James MD [address] [place] [address] PCP - GeneralFamily Medicine02/11/23documented as of this encounter
--- OUTSIDE RECORDS SUMMARY | 2025-07-30 08:46 | XMS_ITS | Clinical Summary ---
Author Organization [facility] Address [address] [place] [id number] Care Team Providers Care Director Zone Name Role Phone Fabby Maynard RT(R) Primary [...] mouth once daily.Active Active Problems ProblemNoted DateDiagnosed RcisGjdiipyzxv23/14/2016 Social History Tobacco UseTypesPacks/DayYears UsedDateSmoking Tobacco: NeverSmokeless Tobacco: NeverAlcohol UseStandard Drinks/WeekCommentsNo0 (1 standard drink = 0.6 oz pure alcohol)CommentsUnknownSex and Gender InformationValueDate RecordedSex Assigned at BirthNot on fileLegal HpkJyuigb34/08/2016 10:35 AM EDTGender IdentityNot on fileSexual OrientationNot on file Last Filed Vital Signs Vital SignReadingTime TakenCommentsBlood Wnyqrpon887/8009 1:56 PM EDT Ceskr5181 1:56 PM VLLIaktrkfijyx99.8 ??C (98.2 ??F)04/14/2016 1:56 PM EDTRespiratory Kkii010804/14/2016 1:56 PM EDTOxygen Saturation--Inhaled Oxygen Concentration--Tkbttd035.7 kg (235 lb 3.2 oz)04/14/2016 1:56 PM FLXFwvmod569.6 cm (5' 4.02 )04/14/2016 1:56 PM EDTBody Mass Index40.35004/14/2016 1:56 PM EDT Plan of Treatment Health MaintenanceDue DateLast DoneCommentsAnxiety Bmpiowuco99/01/2001Depression Nwzuwfttc54/01/2001HIV Kxgnpbzgo69/01/2001Hepatitis C Hevxsdffy61/01/2001 DTaP,Tdap,Td Vaccine (1 - Tdap)2002Hepatitis B Vaccine (1 of 3 - 19+ 3- dose series)2002Cervical Cancer Jcneodlzb72/01/2004HPV Vaccine (1 - 3-dose SCDM series)2010Mammogram Hwyumrwto51/01/2023Covid-19 Vaccine (1 - 2024- season)2025Influenza Vaccine (#1)2025 Insurance Care Teams Team MemberRelationshipSpecialtyStart DateEnd Fabby Maynard RT(R) PCP - General01/15/16
--- OUTSIDE RECORDS SUMMARY | 2025-07-30 08:46 | XMS_ITS | Clinical Summary ---
Author Organization [facility] Address [address] [place] [address] Care Team Providers Care Bill Clerk Name Role Phone Fabby James MD Primary Care Provider [phone] Allergies Active AllergyReactionsCriticalityNoted DateCommentsCat LyifbyKgpjuqa52/08/2021 Dog Epithelium (Canis Lupus Familiaris)Uqxhujh8007/16/2021 Other Reaction(s): Other (See Comments) Dust Mite ShmdyaaIqiflko46/08/4778EqekztymhpaNzfwtqxtcsegKzd52/11/2023Latex Xodjks6202/16/2023Molds & UibkzIanppky35/08/2021 Medications MedicationSigDispense QuantityRefillsLast FilledStart DateEnd DateStatus Cholecalciferol [...] (Wellbutrin XL) 150 MG 24 hr tablet Indications:AnxietyTAKE 1 TABLET (150 MG) BY MOUTH IN THE MORNING. DO NOT CRUSH, CHEW, OR SPLIT. 90 tablet /6Active fluconazole (Diflucan) 150 MG tablet Indications:Yeast infectionTake 1 tablet (150 mg) by mouth 1 (one) time for 1 dose This is a 1 time dose, take single tablet by mouth. 1 tablet Expired Active Problems ProblemNoted DateDiagnosed DateChronic /20/2023Morbid (severe) obesity due to excess /20/2023PCOS (polycystic ovarian syndrome)02/25/2023 Cervical spondylosis without xmdsifzzgf95/15/2022 Overview (02/25/2023): Added automatically from request for surgery [id number] Seasonal allergic lyvazemn15/01/2021 Assessment & Plan (05/22/2025 2:13 PM EDT): Moderate persistent asthma without rsoifctjdbkd33/21/2020 Assessment & Plan (05/22/2025 2:13 PM EDT): Orders: POCT SPIROMETRY WO BRONCHODILATOR POCT SPIROMETRY WO BRONCHODILATOR Nwazilusntdc87/27/2017Recurrent major depressive disorder, in partial remission 02/02/2017 Assessment & Plan (04/15/2023 7:30 PM EDT): Despite the current sressors, she continues to do well on lexapro. Cvskbpu4506/12/2016 Assessment & Plan (05/22/2025 2:13 PM EDT): Orders: buPROPion XL (Wellbutrin XL) 150 MG 24 hr tablet; Take 1 tablet (150 mg) by mouth in the morning. Do not crush, chew, or split. Resolved Problems ProblemNoted DateDiagnosed DateResolved DateAllergic rhinitis due to pollen ervical spinal dzxwlnul31Neck pain HoarsenessYeast wyssazeyw91/20/2023 07/25/20244352Zufwvtrbwqeh53Hemorrhage Encounters DateTypeDepartmentCare IhhuZbytnccumfr50/16/2025Telephone [facility] [address] [place] [address] Vel Grove DO 06/27/2025Orders Only [facility] [address] [facility] [place] [address] Jaelyn Tatum MA 06/22/2025linisync Result Encounter [facility] External Department Unsolicited Lili Bean PA 06/16/2025Refill [facility] [address] [place] [facility] [address] Fabby James MD Edzhlyb8806/04/2025 2:00 PM EDTOffice Visit [facility] [address] [facility] [place] [address] Vel Grove DO Hormone disorder (Primary Dx); Well woman exam with routine gynecological exam; Encounter for screening mammogram for malignant neoplasm of zjfden3006/04/2025 Clinisync Result Encounter [facility] External [facility] Unsolicited Vel Grove, DO 06/04/2025amboo flowsheet [facility] [address] [place] [address] [place] [address] Vel Grove, DO 05/28/20251190Gsujzs25/14/2025 1:00 PM EDTOffice Visit [facility] [address] [facility] [place] [phone] Fabby James MD Moderate persistent asthma without complication (HCC) (Primary Dx); Seasonal allergic rhinitis due to pollen; Acute non-recurrent maxillary sinusitis; Tulqfwn9005/22/2025amboo flowsheet [facility] [address] [facility] [place] [phone] Fabby James MD 05/22/20253681Ojzdey89/13/2025Refill [facility] [address] [facility] [place] [phone] Fabby James MD Recurrent major depressive disorder, in partial hqaedugtf86/09/2025Refill [facility] [address] [facility] [place] [phone] Fabby James MD Cmbtdkw7805/16/2025Refill [facility] [address] [facility] [place] [phone] Fabby James MD Moderate persistent asthma with exacerbation (HCC)from Last 3 Months Family History Medical HistoryRelationNameCommentsAsthmaBrotherTom SturmArthritisFatherScott CheekDepressionFatherScott CheekArthritisMotherKarla WaughAsthmaMotherKarla WaughDepressionMotherKarla WaughMental illnessMotherKarla WaughMiscarriages / StillbirthsMotherKarla WaughOsteoarthritisMotherKarla WaughMiscarriages / StillbirthsMother's SisterRobin RoseCancerOtheruterine and ovarian: great aunts DiabetesOtherboth sides of familyPolycystic kidney diseaseOtherauntthyroid issuesOtherboth sides of familyArthritisSisterCandi NoftzAsthmaSisterCandi Noftz DepressionSisterCandi NoftzRelationNameStatusCommentsBrotherTom [facility] AliveFatherScott CheekAliveMotherKarla WaughAliveMother's SisterRobin RoseOther SisterCandi NoftzSonAlive Social History Tobacco UseTypesPacks/DayYears UsedDateSmoking Tobacco: NeverSmokeless Tobacco: Never Tobacco Cessation:Counseling Given: Not Answered Alcohol UseStandard Drinks/WeekCommentsYes2 (1 standard drink = 0.6 oz pure alcohol)caffeine: 1-2 cups/cywB4008 Health LiteracyAnswerDate RecordedHow often do you need [...] a week 07/03/2024How often do you attend latter day or presybeterian services?1 to 4 times per year07/03/2024o you belong to any clubs or organizations such as latter day groups, unions, fraternal or athletic groups, or school groups?No07/03/2024How often do you attend meetings of the clubs or organizations you belong to?Never07/03/2024 Are you , , , , never , or living with a partner?Hidtvjmso21/25/2024UDIT-CAnswerDate RecordedQ1: How often do you have a [...] and heating?Hard 07/03/2024HQ-2AnswerDate RecordedPatient Health Questionnaire-2 Score3 11/03/2024[facility] - Occupational Stress QuestionnaireAnswerDate [...] times have you moved where you were living?011t any time in the past 12 months, were you homeless or living in a chcf (including now)?No 07/03/2024CommentsNoSex and Gender InformationValueDate RecordedSex Assigned at BirthNot on fileLegal VduSycump42/15/2023 6:44 PM EDTGender Identity Not on fileSexual OrientationNot on file Last Filed Vital Signs Vital SignReadingTime TakenCommentsBlood Vrzxdflo598/6006/04/2025 1:35 PM EDT Rxxyo573505/22/2025 1:04 PM OVPEjyteeavuvi18.1 ??C (96.9 ??F)09/05/2024 2:41 PM ESTRespiratory Ghky774611/03/2024 3:09 PM EDTOxygen Gwusecbjdj26%05/22/2025 1:04 PM EDTInhaled Oxygen Concentration--Tagcci269 kg (230 lb 12 oz)06/04/2025 1:35 PM PIWFjuths523.6 cm (5' 4 )05/22/2025 1:04 PM EDTBody Mass Index39.6105/22/2025 1:04 PM EDT Plan of Treatment DateTypeDepartmentCare Team (Latest Contact Info)Waemosquaod93/03/2026 8:30 AM ESTProcedure Visit [facility] [address] [facility] [place] [address] Vel Grove DO [address] [facility] [address] [address] Health MaintenanceDue DateLast DoneCommentsPneumococcal Vaccine: Pediatrics (0 to 5 Years) and At-Risk Patients (6 to 64 Years) (1 of 2 - PCV)2002COVID- 19 Vaccine (1 - 2024-26 season)04/09/20254912Kqnczbcny03/28/51834810/06/2024, 05/25/2024, 05/15/2024Influenza Vaccine (#1)2026Postponed from 04/09/2025 (Patient Refused)Cervical Cancer ScreeningDiscontinuedPap SmearDiscontinued 06/04/2025, 12/07/2024, 05/29/2024, Additional history existsHPV/Cotest Discontinued Procedures Procedure NamePriorityDate/TimeAssociated DiagnosisCommentsSRMCOH TESTOSTERONE FREE/TOT LKDKXKLHprfefh61/14/2025 1:41 PM EST METRO SEX BINDING HORMONE (SHBG), TESTOSTERONE, FREE AND BIOAVAILABLERoutine 06/22/2025 1:41 PM EST CALCITRIOL(1,25 DI-OH VIT D)Yyaenkh6206/22/2025 1:41 PM EST ALL T3 WQSAVBVQaaxmbb41/14/2025 1:41 PM EST ALL THY PEROXIDASE (TPO) KXRdxxexg22/14/2025 1:41 PM EST ALL ESTRONE(E1)Ahnmcfy4706/22/2025 1:41 PM EST ALL OKBBBUSLIYDVVhyngfz11/14/2025 1:41 PM EST ALL DHEA VNMUVXLBjjdazl32/14/2025 1:41 PM EST TBH JIITKUCQpbtzwn68/14/2025 1:41 PM EST ALL THYROXINE (T4) ZAGCLecumtq97/14/2025 1:41 PM EST CCF ZSVQJBAMCahihuy88/14/2025 1:41 PM EST ALL THYROID STIM ZVVWHCRAokdmnf46/14/2025 1:41 PM EST ALL T3 NBAKCekjgbv94/14/2025 1:41 PM EST MLR HEMOGLOBIN B0SVqtcyid33/14/2025 1:41 PM EST IGP,APTIMA HPV,AGE FTSAUotpvzw48/27/2025 1:26 PM EDT PAP TEST, CFUAVAFRJifjvru55/27/2025 12:00 AM EDTPOCT SPIROMETRY WO JFHCBAVAGMAKHAHnsrgbl75/14/2025 2:27 PM EDT Moderate persistent asthma without complication (HCC) POCT SPIROMETRY WO AFOYTDTJPKPUXETczoudj13/14/2025 2:11 PM EDT Moderate persistent asthma without complication (HCC) BI MAMMOGRAM DIAGNOSTIC TOMOSYNTHESIS IFNVFPubricr09/28/2025 2:22 PM EST Mammogram abnormal Solitary cyst of right breast from Last 3 Months or Most Recently Relevant to Health Maintenance Results * TBH ESTRONE (06/22/2025 1:41 PM EST)ComponentValueRef RangeTest MethodAnalysis TimePerformed AtPathologist SignatureESTRONE, SERUM62. pg/mLTBHComment: ?Range ?Adult (Premenopausal) ?27 - 231 ?Menstrual Cycle (1-10 days) ?19 - 149 ?Menstrual Cycle (11-20 days) ?? 32 - 176 ?Menstrual Cycle (21-30 days) ?? 37 - 200 ?Adult (Postmenopausal) ?0 - 125 Performed at: ??[facility] - [facility] ??[id number] Placement Specialist: Chacorta Clancy MD, Phone: ??[phone] Specimen (Source)Anatomical Location / LateralityCollection Method / Volume Collection TimeReceived Time06/22/2025 1:41 PM EST06/22/2025 1:43 PM EST Narrative CLINISYNC - 06/25/2025 3:08 PM EST Authorizing ProviderResult TypeResult StatusAmy Geneva PACLINISYNCFinal Result Performing OrganizationAddressCity/State/ZIP CodePhone Number [facility] * CALCITRIOL(1,25 DI-OH VIT D) (06/22/2025 1:41 PM EST)ComponentValueRef Range Test MethodAnalysis TimePerformed AtPathologist SignatureCALCITRIOL(1,25 DI-OH VIT D)30.724.8 - 81.5 pg/mLTBHComment: Performed at: ??[address] ??[id number] Placement Specialist: Chacorta Clancy MD, Phone: ??[phone] Specimen (Source)Anatomical Location / LateralityCollection Method / Volume Collection TimeReceived Time06/22/2025 1:41 PM EST06/22/2025 1:43 PM EST Narrative CLINISYNC - 06/29/2025 12:08 AM EST Authorizing ProviderResult TypeResult StatusAmy Geneva PALAB BLOOD ORDERABLES Final ResultPerforming OrganizationAddressty/[facility] CodePhone Number [facility] * SRMCOH TESTOSTERONE FREE/TOT EQUILIB (06/22/2025 1:41 PM EST)ComponentValueRef RangeTest MethodAnalysis TimePerformed AtPathologist UwazelviqUIDEJEYVVIBT31 - 50 ng/dLTBHFREE TESTOSTERONE(DIRECT)0.80.0 - 4.2 pg/mLTBHComment: Performed at: ??[facility] ??[id number] Placement Specialist: Khurram Posadas PhD, Phone: ??[phone] Performed at: ??[facility] [address] ??[id number] Placement Specialist: Chacorta Clancy MD, Phone: ??[phone] Specimen (Source)Anatomical Location / LateralityCollection Method / Volume Collection TimeReceived Time06/22/2025 1:41 PM EST06/22/2025 1:43 PM EST Narrative CLINISYNC - 06/29/2025 12:08 AM EST Authorizing ProviderResult TypeResult StatusAmy Geneva PACLINISYNCFinal Result Performing OrganizationAddressCity/State/ZIP CodePhone Number [facility] * MLR HEMOGLOBIN A1C (06/22/2025 1:41 PM EST)ComponentValueRef RangeTest Method Analysis TimePerformed AtPathologist SignatureGLYCOHEMOGLOBIN A1C5.14.5 - 6.2 %TBHComment: ADA RECOMMENDED LIMIT 4.0 - 6.0 ADA THERAPEUTIC TARGET < 7.0 ACTION SUGGESTED > 7.0 ESTIMATED AVERAGE XWJRJYA743vc/dLTBHSpecimen (Source)Anatomical Location / LateralityCollection Method / VolumeCollection TimeReceived Time06/22/2025 1:41 PM EST06/22/2025 1:43 PM EST Narrative CLINISYNC - 06/22/2025 2:07 PM EST Authorizing ProviderResult TypeResult StatusAmy Geneva PACLINISYNCFinal Result Performing OrganizationAddressCity/[facility]/ZIP CodePhone Number [facility] * METRO SEX BINDING HORMONE (SHBG), TESTOSTERONE, FREE AND BIOAVAILABLE (06/22/2025 1:41 PM EST)ComponentValueRef RangeTest MethodAnalysis Time Performed AtPathologist SignatureSEX HORM BINDING GLOB, SERUM71.724.6 - 122.0 nmol/LTBHComment: Performed at: ??[facility] - [facility] [address] ??[id number] Placement Specialist: Khurram Posadas PhD, Phone: ??[phone] Specimen (Source)Anatomical Location / LateralityCollection Method / Volume Collection TimeReceived Time06/22/2025 1:41 PM EST06/22/2025 1:43 PM EST Narrative CLINISYNC - 06/29/2025 12:08 AM EST Authorizing ProviderResult TypeResult StatusAmy Geneva PACLINISYNCFinal Result Performing OrganizationAddWellSpan [facility] Hospitalty/[facility]/ZIP CodePhone Number [facility] * CCF FERRITIN (06/22/2025 1:41 PM EST)ComponentValueRef RangeTest Method Analysis TimePerformed AtPathologist UvpdihwawQHUJBETZ79.08.0 - 252.0 ng/mLTBH Specimen (Source)Anatomical Location / LateralityCollection Method / Volume Collection TimeReceived Time06/22/2025 1:41 PM EST06/22/2025 1:43 PM EST Narrative CLINISYNC - 06/22/2025 2:43 PM EST Authorizing ProviderResult TypeResult StatusAmy Geneva PACLINISYNCFinal Result Performing OrganizationAddressCity/State/ZIP CodePhone Number [facility] * ALL THYROXINE (T4) FREE (06/22/2025 1:41 PM EST)ComponentValueRef RangeTest MethodAnalysis TimePerformed AtPathologist SignatureFREE T40.840.76 - 1.46 ng/dLTBHSpecimen (Source)Anatomical Location / LateralityCollection Method / VolumeCollection TimeReceived Time06/22/2025 1:41 PM EST06/22/2025 1:43 PM EST Narrative CLINISYIL - 06/22/2025 2:43 PM EST Authorizing ProviderResult TypeResult StatusAmy Geneva PACLINISYNCFinal Result Performing OrganizationAddressty/State/ZIP CodePhone Number [facility] * ALL THYROID STIM HORMONE (06/22/2025 1:41 PM EST)ComponentValueRef RangeTest MethodAnalysis TimePerformed AtPathologist SignatureTHYROID STIMULATING HORMONE1.8320.358 - 3.740 uIU/mLTBHSpecimen (Source)Anatomical Location / LateralityCollection Method / VolumeCollection TimeReceived Time06/22/2025 1:41 PM EST06/22/2025 1:43 PM EST Narrative CLINISYNC - 06/22/2025 2:31 PM EST Authorizing ProviderResult TypeResult StatusAmy Geneva PACLINISYNCFinal Result Performing OrganizationAddressty/State/ZIP CodePhone Number [facility] * ALL THY PEROXIDASE (TPO) AB (06/22/2025 1:41 PM EST)ComponentValueRef Range Test MethodAnalysis TimePerformed AtPathologist SignatureTHYROID PEROXIDASE (TPO) AB160 - 34 IU/mLTBHSpecimen (Source)Anatomical Location / Laterality Collection Method / VolumeCollection TimeReceived Time06/22/2025 1:41 PM EST 06/22/2025 1:43 PM EST Narrative CLINISYNC - 06/29/2025 12:08 AM EST Authorizing ProviderResult TypeResult StatusAmy Geneva PACLINISYNCFinal Result Performing OrganizationAddWellSpan Getty[facility] Hospitalty/[facility] CodePhone Number [facility] * ALL T3 REVERSE (06/22/2025 1:41 PM EST)ComponentValueRef RangeTest Method Analysis TimePerformed AtPathologist SignatureREVERSE T3, SERUM10.79.2 - 24.1 ng/dLTBHComment: This test was developed and its performance characteristics determined by [facility]. It has not been cleared or approved by the Food and Drug Administration. Performed at: ?? - [facility] ??[id number] Placement Specialist: Chacorta Clancy MD, Phone: ??[phone] Specimen (Source)Anatomical Location / LateralityCollection Method / Volume Collection TimeReceived Time06/22/2025 1:41 PM EST06/22/2025 1:43 PM EST Narrative CLINISYNC - 06/29/2025 12:08 AM EST Authorizing ProviderResult TypeResult StatusAmy Geneva PACLINISYNCFinal Result Performing OrganizationAddBuck[facility] * ALL T3 FREE (06/22/2025 1:41 PM EST)ComponentValueRef RangeTest MethodAnalysis TimePerformed AtPathologist SignatureFREE T32.352.18 - 3.98 pg/mLTBHSpecimen (Source)Anatomical Location / LateralityCollection Method / VolumeCollection TimeReceived Time06/22/2025 1:41 PM EST06/22/2025 1:43 PM EST Narrative CLINISYNC - 06/22/2025 2:31 PM EST Authorizing ProviderResult TypeResult StatusAmy Geneva PACLINISYNCFinal Result Performing OrganizationAddBucktail Medical Center/[facility] CodePhone Number [facility] * ALL PROGESTERONE (06/22/2025 1:41 PM EST)ComponentValueRef RangeTest Method Analysis TimePerformed AtPathologist SignaturePROGESTERONE8.5. ng/mLTBH Comment: ? Follicular phase ? 0.1 - ?? 0.9 ? Luteal phase ? 1.8 - ??23.9 ? Ovulation phase ?0.1 - ??12.0 ?First trimester ?11.0 - ??44.3 ?Second trimester ?? 25.4 - ??83.3 ?Third trimester ?58.7 - 214.0 ? Postmenopausal ? 0.0 - ?? 0.1 Specimen (Source)Anatomical Location / LateralityCollection Method / Volume Collection TimeReceived Time06/22/2025 1:41 PM EST06/22/2025 1:43 PM EST Narrative CLINISYNC - 06/29/2025 12:08 AM EST Authorizing ProviderResult TypeResult StatusAmy Geneva PACLINISYNCFinal Result Performing OrganizationAddressCity/State/ZIP CodePhone Number [facility] * ALL ESTRONE(E1) (06/22/2025 1:41 PM EST)ComponentValueRef RangeTest Method Analysis TimePerformed AtPathologist SkdjrbwweBMZVJBHGT78.9. pg/mLTBHComment: ? Adult Female ? Range ?Follicular phase ? 12.5 - 166.0 ?Ovulation phase ?85.8 - 498.0 ?Luteal phase ? 43.8 - 211.0 Postmenopausal <6.0 - 54.7 ? 1st trimester 215.0 - >4300.0 Elisabeth ECLIA methodology Specimen (Source)Anatomical Location / LateralityCollection Method / Volume Collection TimeReceived Time06/22/2025 1:41 PM EST06/22/2025 1:43 PM EST Narrative CLINISYNC - 06/29/2025 12:08 AM EST Authorizing ProviderResult TypeResult StatusAmy Geneva PACLINISYNCFinal Result Performing OrganizationAddressCity/State/ZIP CodePhone Number [facility] * ALL DHEA SULFATE (06/22/2025 1:41 PM EST)ComponentValueRef RangeTest Method Analysis TimePerformed AtPathologist SignatureDHEA-GIRTABC22.057.3 - 279.2 ug/dLTBHSpecimen (Source)Anatomical Location / LateralityCollection Method / VolumeCollection TimeReceived Time06/22/2025 1:41 PM EST06/22/2025 1:43 PM EST Narrative CLINISYNC - 06/29/2025 12:08 AM EST Authorizing ProviderResult TypeResult StatusAmy Geneva PACLINISYNCFinal Result Performing OrganizationAddressCity/State/ZIP CodePhone Number [facility] * (ABNORMAL) IGP,APTIMA HPV,AGE GDLN (06/04/2025 1:26 PM EDT)ComponentValueRef RangeTest MethodAnalysis TimePerformed AtPathologist SignatureAGE GDLN ACOG TESTINGNote.TBHComment: ?? TESTS ? RESULT ??FLAG ??UNITS ?REF RANGE ??LAB ?? Clinician Provided Cytology Information ?? Source.............Vagina ?? No. of containers..01 ThinPrep Vial Age Algo ACOG Cristina... ??30-65 ? 01 ?FLAG LEGEND: ?L-Low Normal,H-High Normal,LL-Alert Low,HH-Alert High <-Panic Low,>-Panic High,A-Abnormal,AA-Critical Abnormal Performed at: 01 =G ?[facility] ?? [address] [place], [place] ??[phone] ?? Juanita Reyes MD, IGP, APTIMA HPV, RFX 16/18,45Note.TBHComment: ?? TESTS ? RESULT ??FLAG ??UNITS ?REF RANGE ??LAB DIAGNOSIS: ?02 ?? NEGATIVE FOR INTRAEPITHELIAL LESION OR MALIGNANCY. Specimen adequacy: ?02 ?? Satisfactory for evaluation. Performed by: ? 02 ?? Ivory Clark Manager Registration (ASCP) . ? 02 Note: ? Note ?02 ?? The Pap smear is a screening test designed to aid in the ?? detection of premalignant and malignant conditions of the ?? uterine cervix. ??It is not a diagnostic procedure and ?? should not be used as the sole means of detecting cervical ?? cancer. ??Both false-positive and false-negative reports do ?? occur. Test Methodology: ? Note ?02 ?? This liquid based ThinPrep(R) pap test was interpreted ?? using the Integrien(R) Cartoon Doll Emporiumius(TM) Cervical Algorithm whole ?? slide imaging system. HPV Genotype Reflex ?? Note ?02 ?? Criteria met, see HPV Genotype results. ?FLAG LEGEND: ?L-Low Normal,H-High Normal,LL-Alert Low,HH-Alert High <-Panic Low,>-Panic High,A-Abnormal,AA-Critical Abnormal Performed at: 02 ?[facility] ?? [address] [place], [place] ??[phone] ?? Juanita Reyes MD, HPV APTIMAPositive(A)NegativeTBHComment: This nucleic acid amplification test detects fourteen high- risk HPV types (16,18,31,33,35,39,45,51,52,56,58,59,66,68) without differentiation. HPV GENOTYPE 16NegativeNegativeTBHHPV GENOTYPE 18,45NegativeNegativeTBHComment: Performed at: ??=G - [address] ??[id number] Placement Specialist: Juanita Reyes MD, Phone: ??[phone] Performed at: ?? - [address] ??[id number] Placement Specialist: Juanita Reyes MD, Phone: ??[phone] Specimen (Source)Anatomical Location / LateralityCollection Method / Volume Collection TimeReceived Time06/04/2025 1:26 PM EDT1 7:50 PM EDT Narrative CLINISYNC - 06/08/2025 8:08 PM EDT SPATULA-ALONE VAGINA Authorizing ProviderResult TypeResult StatusCorey Maine DOLAB BLOOD ORDERABLES Final ResultPerforming OrganizationAddressCity/State/ZIP CodePhone Number [facility] * (ABNORMAL) PAP TEST, EXTERNAL (06/04/2025 12:00 AM EDT) Narrative Authorizing ProviderResult TypeResult StatusCorey Maine DOLAB CYTOLOGY ORDERABLESFinal ResultPerforming OrganizationAddressCity/State/ZIP CodePhone Number EXTERNAL LAB * POCT SPIROMETRY WO BRONCHODILATOR (05/22/2025 2:27 PM EDT) Only the most recent of2 resultswithin the time period is included. Specimen (Source)Anatomical Location / LateralityCollection Method / Volume Collection TimeReceived GiffOpfbh31/14/2025 2:27 PM EDT Narrative Authorizing ProviderResult TypeResult StatusJechloe James MDPOINT OF CARE TEST ENTER/EDIT ORDERABLESFinal Result * Right diagnostic mammogram with tomosynthesis (10/06/2024 [...] IS VERY IMPORTANT TO YOUR HEALTH. ??THE [employer] GUIDELINES RECOMMEND THAT WOMEN 40 [...] IS VERY IMPORTANT TO YOUR HEALTH. THE [employer] GUIDELINES RECOMMEND THAT WOMEN 40 YEARS OF AGE AND OLDER SHOULD HAVE AMAMMOGRAM EVERY YEAR. A REMINDER LETTER WILL BE SENT AT THE APPROPRIATE TIME. ELECTRONICALLY SIGNED BY: Pablito Sotelo M.D. Authorizing ProviderResult TypeResult StatusCorey Maine DOIMG BI PROCEDURESFinal Result from Last 3 Months or Most Recently Relevant to Health Maintenance Insurance [address] [place] [address] Care Teams Team MemberRelationshipSpecialtyStart DateEnd Fabby James MD [address] [place] [address] PCP - GeneralFamily Medicine02/11/23
== END 2025-07-30 08:44 | disposition home or self-care (01) ==
LOC: MRI 08:43
PROVIDERS: PCP Family Medicine
DX: M54.12 Radiculopathy, cervical region (principal); M50.30 Other cervical disc degeneration, unspecified cervical region
CPT/HCPCS: 72141